=== PATIENT | male | born 1950 | race African-American/Black ===

== ENCOUNTER 2018-09-11 15:36 | Emergency (ER) | payer OTHER ==
[~2018-09-11] VITALS: Ht 182.9 cm; Wt 113.4 kg
[2018-09-11 16:31] LABS: Basophils # (auto) 0.1 uL; Eosinophils # (auto) 0.2 uL; Eosinophils % (auto) 4.2 % (0.0-7.0); Hematocrit 35.3 % (41.0-53.0); Monocytes # (auto) 0.6 uL; Red Blood Cells 4.62 10^6/uL (4.5-5.90); White Blood Cell 5.2 10^3/uL (4.4-10.8)
[2018-09-11 16:34] LABS: Basophils % (auto) 1.5 % (0.0-2.0); Hemoglobin 11.6 g/dL (13.5-17.5); Lymphocytes % (auto) 19.1 % (10.0-50.0); Mean Corpuscular Hemoglobin 25.1 pg (28.0-32.0); Mean Corpuscular Hgb Conc. 32.9 g/dL (32.0-36.0); Mean Corpuscular Volume 76.4 fL (80.0-100.0); Monocytes % (auto) 11.8 % (0.0-12.0); Neutrophils # (auto) 3.3 uL; Neutrophils % (auto) 63.4 % (37.0-80.0); Platelet Count (auto) 236 10^3/uL (140-450)
[2018-09-11 16:40] LABS: Red Cell Distribution Width 20.8 % (11.8-14.3)
[2018-09-11 17:03] LABS: Albumin 2.9 g/dL (3.4-5.0); BUN/Creatinine Ratio 4.5; Calcium 7.3 mg/dL (8.5-10.1); Potassium 4.2 mmol/L (3.5-5.1)
[2018-09-11 17:15] LABS: Bilirubin, Total 0.8 mg/dL (0.2-1.0); Total Protein 8.2 g/dL (6.4-8.2)
[2018-09-12 11:57] VITALS: BP 134/89
== END 2018-09-12 12:07 | disposition short-term general hospital (02) ==
LOC: EDBD 15:36 → ER 15:36
DX: N18.6 End stage renal disease (principal); Z99.2 Dependence on renal dialysis
CPT/HCPCS: 36415; 80053; 85025; 93005; 93970

== ENCOUNTER 2019-07-08 15:34 | Inpatient (IN) | payer OTHER ==
[~2019-07-08] VITALS: Ht 180.3 cm; Wt 102.7 kg
[2019-07-08 18:54] LABS: Basophils # (auto) 0.1 uL; Hemoglobin 10.8 g/dL (13.5-17.5); Mean Corpuscular Hemoglobin 25.7 pg (28.0-32.0); Monocytes # (auto) 0.6 uL; Neutrophils # (auto) 4.8 uL; White Blood Cell 6.8 10^3/uL (4.4-10.8)
[2019-07-08 18:56] LABS: Basophils % (auto) 1.2 % (0.0-2.0); Eosinophils # (auto) 0.3 uL; Eosinophils % (auto) 3.7 % (0.0-7.0); Hematocrit 32.7 % (41.0-53.0); Lymphocytes # (auto) 1.1 uL; Lymphocytes % (auto) 15.7 % (10.0-50.0); Monocytes % (auto) 9.1 % (0.0-12.0); Neutrophils % (auto) 70.3 % (37.0-80.0); Platelet Count (auto) 221 10^3/uL (140-450); Red Blood Cells 4.19 10^6/uL (4.5-5.90); Red Cell Distribution Width 16.7 % (11.8-14.3)
[2019-07-08 19:12] LABS: Calcium 8.6 mg/dL (8.5-10.1); Potassium 5.5 mmol/L (3.5-5.1)
[2019-07-08 19:15] LABS: BUN/Creatinine Ratio 4.8; Bilirubin, Total 0.9 mg/dL (0.2-1.0); Total Protein 8.3 g/dL (6.4-8.2)
[2019-07-08 19:21] LABS: Urine Bacteria NONE SEEN /hpf (None Seen); Urine Blood 2+ /uL (Negative); Urine Specific Gravity 1.016 (1.001-1.035); Urine WBC 70 /hpf (0 - 3)
[2019-07-08] MEDS ORDERED: cefTRIAXone 1GM/50ML D5W 50 ML IV ONE (20:15)
[2019-07-08] MEDS ORDERED: FUROSEMIDE 40 MG/4 ML VIAL IV ONE (20:15)
[2019-07-08] MEDS ORDERED: IBUPROFEN 600 MG TAB PO ONE (21:00)
[2019-07-08] MEDS ORDERED: PHENAZOPYRIDINE HCL 100 MG TAB PO ONE (21:00)
[2019-07-09] VITALS (7 sets, daily range): BP systolic 129–149; BP diastolic 68–91
[2019-07-09] MEDS ORDERED: cloNIDine HCL 0.1 MG TAB PO PRN (00:45)
[2019-07-09] MEDS ORDERED: TEMAZEPAM 15 MG CAP PO PRN (00:45)
[2019-07-09] MEDS ORDERED: ACETAMINOPHEN 325 MG TAB PO PRN (00:45)
[2019-07-09] MEDS ORDERED: ONDANSETRON HCL 4 MG/2 ML VIAL IV PRN (00:45)
[2019-07-09] MEDS ORDERED: NITROGLYCERIN 0.4 MG SL TAB SL PRN (01:00)
[2019-07-09] MEDS ORDERED: MORPHINE SULF INJ 2 MG/ML SYRINGE 1ML IV PRN (01:00)
[2019-07-09] MEDS ORDERED: SODIUM ZIRCONIUM CYCL 10 GM PAK PO ONE (01:00)
[2019-07-09] MEDS ORDERED: ALBUTEROL SULF 2.5 MG/0.5ML(0.5%) NEB SOLN NEB PRN (03:00)
[2019-07-09] MEDS: FUROSEMIDE 40 MG/4 ML VIAL IV SCH ×2 (05:48→19:01)
[2019-07-09] MEDS: PANTOPRAZOLE 40 MG TAB PO SCH (05:48)
[2019-07-09] MEDS ORDERED: FUROSEMIDE 40 MG TAB PO SCH (06:00)
--- NOTE | 2019-07-09 08:20 | NUR ---
Opening Note Assumed care of patient. He is A & O x4,, no s/s of distress, sitting up at bedside eating breakfast independently. Patient is comfortable at this time. POC discussed with patient, he agrees. Bed is in lowest, locked position, call light within reach. Bed rails up x 2, oriented patient to room and hospital. Will continue to monitor Q1h and PRN.
--- NOTE | 2019-07-09 09:55 | NUR ---
Respiratory note: PT ASSESSED FOR PRN MED NEB TX, NO TX DESIRED NOR INDICATED AT THIS TIME. RN AND PT AWARE TO HAVE RT PAGED IF NEEDED. HR 90 RR 20 SPO2 100% ON RA BREATH SOUNDS ARE CLEAR/DIMINISHED T/O.
[2019-07-09] MEDS: amLODIPine BESYLATE 5 MG TAB PO SCH (10:00)
[2019-07-09] MEDS ORDERED: OPTISON 3ml Vial for INJ IV ONE (11:30)
--- NOTE | 2019-07-09 12:01 | NUR ---
ECHO/ OPTISON PT TOLERATED ELL, NO DISTRESS, OR REACTION NOTED, CONTINUE MONITORING PT
[2019-07-09] MEDS ORDERED: SODIUM CHL 0.9% 1000 ML BAG XX ONE (13:00)
[2019-07-09] MEDS: PHENAZOPYRIDINE HCL 100 MG TAB PO SCH ×2 (13:22→21:57)
[2019-07-09] MEDS ORDERED: LIDOCAINE 2%HCL (LOCAL ANESTH.) INJ 10ml MDV IJ ONE (15:00)
--- NOTE | 2019-07-09 17:23 | NUR ---
assessment re: gabriel consult lives alone and has nobody to help him Patient is a 68 year old male who is alert and oriented. Patients cognitive abilities are intact. Prior to admission patient lived home alone and functioned independently. Patient informed me he is able to care for his own ADLs. Per patient he will return home to his prior living arrangements post discharge and family will transport him home. Patient informed me he has a fww and a cane for home use. Patients PCP is Dr Gonzales. Patient has [facility] T TH Sat at 4am. Patient drives himself to Dialysis. Patient informed me what he needs help with is cleaning his bathroom and kitchen. Patient informed me it is hard for him to get on the floor and clean behind the toilet. Patient informed me he can do all other cleaning and cooking and caring for himself. I have provided patient with [facility] cleaning service for the elderly. I informed patient he has a right to speak to a social media editor regarding all care. I informed patient he has a right to participate in any and all discharge planning. Patient does not have a POA and advanced directive. I have offered patient information on POA and advanced directives. I informed the patient the advantages and benefits of having an Advanced Directive. Patient verbalized understanding and agreed to discharge plan. Addendum: 07/09/19 at 1729 by Natalia HODGE Amended: Links added.
--- NOTE | 2019-07-09 18:55 | NUR ---
Dialysis nurse completed dialysis HR 89, BP 143/74, 3L removed, patient tolerated well. Can remove fistula dressing in 4-6 hours. Will endorse to shift stacker.
[2019-07-09] MEDS ORDERED: cefTRIAXone 1GM/50ML D5W 50 ML IV SCH (21:00)
[2019-07-09] MEDS: cefTRIAXone 1GM/50ML D5W 50 ML IV SCH (21:57)
--- NOTE | 2019-07-09 23:38 | NUR ---
PATIENT REQUESTING COUGH MEDICINE, PAGED DR CHRISTIANSEN FOR ORDERS. AWAITING CALL BACK. Addendum: 07/09/19 at 2344 by MARIALUISA QUINONEZ RN RN DR CHRISTIANSEN CALLED BACK RECEIVED ORDER FOR ROBITUSSIN DM 10ML Q 4HRS PRN FOR COUGH. TISHA.
[2019-07-09] MEDS: guaiFENesin-DM 100/10mg/5ml SYR PO PRN (23:54)
[2019-07-10] MEDS: PANTOPRAZOLE 40 MG TAB PO SCH (05:20)
[2019-07-10 05:21] VITALS: BP 157/86
[2019-07-10] MEDS: FUROSEMIDE 40 MG/4 ML VIAL IV SCH ×2 (05:21→19:13)
[2019-07-10 09:00] VITALS: BP 146/95
[2019-07-10 10:59] LABS: Basophils # (auto) 0.1 uL; Hematocrit 32.8 % (41.0-53.0); Lymphocytes # (auto) 0.9 uL; Monocytes # (auto) 0.8 uL; Nucleated Red Blood Cells % 0.1 %; Red Blood Cells 4.14 10^6/uL (4.5-5.90); White Blood Cell 6.3 10^3/uL (4.4-10.8)
[2019-07-10 11:01] LABS: Basophils % (auto) 1.7 % (0.0-2.0); Eosinophils # (auto) 0.2 uL; Eosinophils % (auto) 2.6 % (0.0-7.0); Hemoglobin 10.6 g/dL (13.5-17.5); Lymphocytes % (auto) 14.5 % (10.0-50.0); Mean Corpuscular Hemoglobin 25.7 pg (28.0-32.0); Mean Corpuscular Hgb Conc. 32.4 g/dL (32.0-36.0); Mean Corpuscular Volume 79.4 fL (80.0-100.0); Monocytes % (auto) 12.6 % (0.0-12.0); Neutrophils # (auto) 4.3 uL; Neutrophils % (auto) 68.6 % (37.0-80.0); Platelet Count (auto) 204 10^3/uL (140-450); Red Cell Distribution Width 17.9 % (11.8-14.3)
[2019-07-10 11:07] LABS: Calcium 8.3 mg/dL (8.5-10.1); Potassium 5.1 mmol/L (3.5-5.1)
[2019-07-10 11:10] LABS: BUN/Creatinine Ratio 4.1
[2019-07-10] MEDS: amLODIPine BESYLATE 5 MG TAB PO SCH (11:53)
[2019-07-10] MEDS: PHENAZOPYRIDINE HCL 100 MG TAB PO SCH ×2 (11:54→22:32)
[2019-07-10 13:00] VITALS: BP 150/87
[2019-07-10 17:00] VITALS: BP 122/79
--- NOTE | 2019-07-10 19:16 | NUR ---
PT ASSESSED FOR PRN KELSIE VALENCIA TX. SPO2 985 ON RA, HR 91. PT DENIES ANY RESPIRATORY DISTRESS. NO TX INDICATED. WILL CONTINUE TO MONITOR. Addendum: 07/10/19 at 1917 by MARGARET ERWIN RT 98% ON RA
[2019-07-10] MEDS: guaiFENesin-DM 100/10mg/5ml SYR PO PRN (19:37)
[2019-07-10 22:00] VITALS: BP 147/81
[2019-07-10] MEDS: cefTRIAXone 1GM/50ML D5W 50 ML IV SCH (22:32)
--- NOTE | 2019-07-11 04:22 | NUR ---
Opening Shift Note Assumed care of patient, patient asleep, verbally awake and alert. No S/S of distress/SOB or pain. Instructed on POC and to call for assist PRN, will continue to monitor for changes Q1hr and PRN.
[2019-07-11 05:00] VITALS: BP 157/85
[2019-07-11] MEDS: FUROSEMIDE 40 MG/4 ML VIAL IV SCH ×2 (05:45→17:26)
[2019-07-11] MEDS: PANTOPRAZOLE 40 MG TAB PO SCH (05:47)
[2019-07-11 06:06] LABS: BUN/Creatinine Ratio 4.2; Calcium 8.3 mg/dL (8.5-10.1); Potassium 4.9 mmol/L (3.5-5.1)
[2019-07-11] MEDS ORDERED: LIDOCAINE 1% HCL (LOCAL ANESTH.) INJ 20ML MDV ID ONE (06:15)
[2019-07-11] MEDS ORDERED: SODIUM CHL 0.9% 1000 ML BAG XX ONE (07:00)
[2019-07-11 09:00] VITALS: BP 161/82
[2019-07-11] MEDS: PHENAZOPYRIDINE HCL 100 MG TAB PO SCH ×2 (09:34→21:11)
[2019-07-11] MEDS: amLODIPine BESYLATE 5 MG TAB PO SCH (09:34)
--- NOTE | 2019-07-11 10:28 | NUR ---
ASSESSED PT FOR PRN MED NEB, PT IS SLEEPING WITH GOOD INSPIRATORY EFFORT AND IN NO RESPIRATORY DISTRESS. PT AWARE OF PRN MED NEB.
[2019-07-11 13:00] VITALS: BP 155/89
[2019-07-11 17:00] VITALS: BP 156/95
--- NOTE | 2019-07-11 17:19 | NUR ---
Discharge planning per Ss consult, patient has orders to dc to SNF for PT/OT. No PT notes, advised nurse Hyacinth to order STAT PT evaluation; nurse advised patient is ambulating to and from bathroom without assistance. Referral sent to [facility] [phone] for approval and requesting SNF placement.
--- NOTE | 2019-07-11 17:35 | NUR ---
PT WALKED WITH PHYSICAL THERAPY PT WALKED 10 FEET WITH MODERATE ASSITANCE AND PT STATES HE HAS FALLEN IN HIS HOMKE DUE TO BALANCE ISSUES, PT STATES HE DOESNT FEEL COMFORTABLE TAKING CARE OF HIMSELF IN HIS CURRENT CONDITION
--- NOTE | 2019-07-11 18:06 | NUR ---
Discharge planning per SS consult, patient has orders for SNF placement. Referral faxed to [facility]. Will follow up with recreation aide case management on 07.12.19. Nurse Hyacinth advised.
[2019-07-11 20:14] VITALS: BP 138/82
--- NOTE | 2019-07-11 20:14 | NUR ---
Respiratory note: PT RECIEVED ON RA. PT IS AWAKE AND ALERT AT THIS TIME. NO RESP DISTRESS NOTED. SPO2 96%, HR 98, RR 18. BS CLR/DIM T/O. NO PRN TX INDICATED AT THIS TIME. PT AWARE TO CALL FOR TX.
[2019-07-11] MEDS: guaiFENesin-DM 100/10mg/5ml SYR PO PRN (21:10)
[2019-07-11] MEDS: cefTRIAXone 1GM/50ML D5W 50 ML IV SCH (21:11)
[2019-07-11 22:00] VITALS: BP 138/82
[2019-07-12 05:00] VITALS: BP 154/84
[2019-07-12] MEDS: FUROSEMIDE 40 MG/4 ML VIAL IV SCH (06:12)
[2019-07-12] MEDS: PANTOPRAZOLE 40 MG TAB PO SCH (06:12)
[2019-07-12] MEDS: guaiFENesin-DM 100/10mg/5ml SYR PO PRN (06:16)
[2019-07-12 06:41] LABS: Calcium 8.6 mg/dL (8.5-10.1); Potassium 4.3 mmol/L (3.5-5.1)
[2019-07-12 06:43] LABS: BUN/Creatinine Ratio 3.6
[2019-07-12 09:00] VITALS: BP 151/99
[2019-07-12] MEDS: PHENAZOPYRIDINE HCL 100 MG TAB PO SCH (10:10)
[2019-07-12] MEDS: amLODIPine BESYLATE 5 MG TAB PO SCH (10:10)
--- NOTE | 2019-07-12 10:28 | NUR ---
Placed a follow up call to [facility], spoke with Shawna-station attendant and was advised that per their notes [facility] had no beds available and [facility] admission dept is closed. She advised she will look into it and call me back with an update.
[2019-07-12 13:00] VITALS: BP 142/95
--- NOTE | 2019-07-12 15:54 | NUR ---
NUTRITION ASSESSMENT NOTES Please refer to link notes of nutrition screen form filed under the intervention section of the plan of care for further details. Est. Needs: 2050 kcal to 2550 kcal (20-25 kcal/kgBW), 103 gms to 144 gms pro (1.0-1.4 gms/kgBW d/t ESRD on HD). Will continue to monitor pertinent labs and reassess nutrient need prn Thank you. Addendum: 07/12/19 at [address] Amended: Links added.
--- NOTE | 2019-07-12 16:53 | NUR ---
RE: Transfer to [facility] report given to RN at [facility]. Admitting doctor is Dr. Vela.
[2019-07-12 17:00] VITALS: BP 138/85
--- NOTE | 2019-07-12 17:29 | NUR ---
DISCHARGE NOTE Discharge instructions given as ordered. Encourage to follow up with PMD as instructed. All questions and concerns addressed. Patient verbalized understanding. Medication reconciliation form completed and copy given to patient. IV removed with catheter intact, pressure dressing applied. Patient taken to vehicle via wheelchair with all personal belongings, accompanied by staff and family member. No distress noted at time of departure.
== END 2019-07-12 17:25 | DRG 291 ==
LOC: EDBD 15:34 → ER 15:43 → EAST 15:44 → ER 07-09 01:51
PROVIDERS: ADMIT Nurse Practitioner; ATTEND Internal Medicine Geriatric Medicine
PROC: 5A1D70Z Performance of Urinary Filtration, Intermittent, Less than 6 Hours Per Day (ICD-10-PCS; principal; 2019-07-09)
PROC: 5A1D70Z Performance of Urinary Filtration, Intermittent, Less than 6 Hours Per Day (ICD-10-PCS; 2019-07-11)
DX: I13.2 Hypertensive heart and chronic kidney disease with heart failure and with stage 5 chronic kidney disease, or end stage renal disease (principal); I50.31 Acute diastolic (congestive) heart failure; N18.6 End stage renal disease; N25.81 Secondary hyperparathyroidism of renal origin; N39.0 Urinary tract infection, site not specified; E87.5 Hyperkalemia; D63.1 Anemia in chronic kidney disease; F12.90 Cannabis use, unspecified, uncomplicated; F17.210 Nicotine dependence, cigarettes, uncomplicated; Z99.2 Dependence on renal dialysis
CPT/HCPCS: 36415; 71045; 80048; 80053; 81001; 83880; 85025; 87086; 90935; 93306; 96365; 96375; 97163; G0378; J0696; J1642; J2001; Q9956

== ENCOUNTER 2019-11-04 08:08 | Emergency (ER) | payer OTHER ==
[~2019-11-04] VITALS: Ht 175.3 cm; Wt 83.9 kg
[2019-11-04 08:43] LABS: Basophils # (auto) 0.1 10 ^3/uL (0-0.2); Basophils % (auto) 1.2 % (0.0-2.0); Eosinophils # (auto) 0.2 10 ^3/uL (0-0.8); Eosinophils % (auto) 2.5 % (0.0-7.0); Hematocrit 36.2 % (41.0-53.0); Hemoglobin 11.5 g/dL (13.5-17.5); Lymphocytes # (auto) 0.8 10 ^3/uL (0.4-5.4); Lymphocytes % (auto) 9.9 % (10.0-50.0); Mean Corpuscular Hemoglobin 24.6 pg (28.0-32.0); Mean Corpuscular Hgb Conc. 31.9 g/dL (32.0-36.0); Mean Corpuscular Volume 77.2 fL (80.0-100.0); Monocytes # (auto) 0.8 10 ^3/uL (0-1.3); Monocytes % (auto) 9.8 % (0.0-12.0); Neutrophils # (auto) 6.3 10 ^3/uL (1.6-8.6); Neutrophils % (auto) 76.6 % (37.0-80.0); Nucleated Red Blood Cells % 0.1 %; Platelet Count (auto) 201 10^3/uL (140-450); Red Blood Cells 4.69 10^6/uL (4.5-5.90); White Blood Cell 8.3 10^3/uL (4.4-10.8)
[2019-11-04] MEDS ORDERED: CLON0.1T PO (08:53)
[2019-11-04] MEDS ORDERED: CINA30TA2 PO (08:53)
[2019-11-04] MEDS ORDERED: CALC667C5 PO (08:53)
[2019-11-04] MEDS ORDERED: SEVE800T8 PO (08:53)
[2019-11-04] MEDS ORDERED: AML5T PO (08:53)
[2019-11-04 08:56] LABS: Albumin 2.7 g/dL (3.4-5.0); Calcium 6.9 mg/dL (8.5-10.1); Potassium 4.6 mmol/L (3.5-5.1)
[2019-11-04 09:00] LABS: INR 1.19 (0.9-1.15); Partial Thromboplastin Time 32.6 sec (23.64-32.05)
[2019-11-04 09:02] LABS: BUN/Creatinine Ratio 5.2; Total Protein 7.2 g/dL (6.4-8.2)
[2019-11-04 11:39] VITALS: BP 169/83
== END 2019-11-04 12:07 | disposition short-term general hospital (02) ==
LOC: EDBD 08:08 → ER 08:08
DX: N18.6 End stage renal disease (principal); I50.9 Heart failure, unspecified; R19.7 Diarrhea, unspecified
CPT/HCPCS: 36415; 71045; 80053; 83880; 84484; 85025; 85610; 85730; 93005

== ENCOUNTER 2019-12-25 14:53 | Inpatient (IN) | payer OTHER ==
[~2019-12-25] VITALS: Ht 180.3 cm; Wt 108.3 kg
[~2019-12-25 14:53] MED LIST: AML5T PO; CALC667C5 PO; CINA30TA2 PO; CLON0.1T PO; SEVE800T8 PO
[2019-12-25] MEDS ORDERED: cefTRIAXone 1GM/50ML D5W 50 ML IV ONE (16:00)
[2019-12-25 16:37] LABS: Basophils # (auto) 0.1 10 ^3/uL (0-0.2); Eosinophils # (auto) 0.2 10 ^3/uL (0-0.8); Monocytes # (auto) 0.9 10 ^3/uL (0-1.3); Neutrophils # (auto) 5.6 10 ^3/uL (1.6-8.6); Nucleated Red Blood Cells % 0.1 %; Red Blood Cells 4.19 10^6/uL (4.5-5.90); White Blood Cell 7.7 10^3/uL (4.4-10.8)
[2019-12-25 16:39] LABS: Basophils % (auto) 1.2 % (0.0-2.0); Hematocrit 32.6 % (41.0-53.0); Hemoglobin 10.6 g/dL (13.5-17.5); Lymphocytes % (auto) 12.5 % (10.0-50.0); Mean Corpuscular Hemoglobin 25.2 pg (28.0-32.0); Mean Corpuscular Hgb Conc. 32.4 g/dL (32.0-36.0); Mean Corpuscular Volume 77.8 fL (80.0-100.0); Monocytes % (auto) 11.2 % (0.0-12.0); Neutrophils % (auto) 73.1 % (37.0-80.0); Platelet Count (auto) 217 10^3/uL (140-450); Red Cell Distribution Width 19.6 % (11.8-14.3)
[2019-12-25 16:52] LABS: Albumin 3.2 g/dL (3.4-5.0); Calcium 8.3 mg/dL (8.5-10.1); Magnesium 2.5 mg/dL (1.6-2.6)
[2019-12-25 17:00] LABS: BUN/Creatinine Ratio 6.9; Bilirubin, Total 0.8 mg/dL (0.2-1.0); CRP High Sensitivity 3.85 mg/dL (< 0.3); Total Protein 8.8 g/dL (6.4-8.2)
[2019-12-25 17:28] LABS: Potassium 7.4 mmol/L (3.5-5.1)
[2019-12-25] MEDS ORDERED: SODIUM BICARBONATE 8.4 % INJ 50ML VIAL IV ONE (17:30)
[2019-12-25] MEDS ORDERED: CALCIUM GLUC 4.65meq/50ml D5AE 50 ML IV ONE (17:30)
[2019-12-25] MEDS ORDERED: InsuLIN REG 1unit/0.01ml Soln (100units/ml) IV ONE (17:45)
[2019-12-25] MEDS ORDERED: SODIUM ZIRCONIUM CYCL 10 GM PAK PO ONE (17:45)
[2019-12-25] MEDS ORDERED: NITROGLYCERIN 0.4 MG SL TAB SL PRN ×2 (17:45→22:45)
[2019-12-25] MEDS ORDERED: CALCIUM CHL 100MG/ML 1,000 MG in D5W 5% 100 ML IV ONE (17:45)
[2019-12-25] MEDS ORDERED: DEXTROSE (50%) 50ML SYRG IV ONE (17:45)
[2019-12-25] MEDS ORDERED: FUROSEMIDE 40 MG/4 ML VIAL IV ONE (17:45)
[2019-12-25] MEDS ORDERED: ALBUTEROL SULF 2.5 MG/0.5ML(0.5%) NEB SOLN NEB ONE (17:45)
[2019-12-25] MEDS ORDERED: SODIUM BICARBONATE 8.4% INJ 50ML SYRINGE IV ONE (17:45)
[2019-12-25] MEDS ORDERED: MORPHINE SULF INJ 2 MG/ML SYRINGE 1ML IV PRN ×3 (17:45→22:45)
[2019-12-25] MEDS ORDERED: SODIUM CHL 0.9% 1000 ML BAG XX ONE (18:30)
[2019-12-25] MEDS: SODIUM ZIRCONIUM CYCL 10 GM PAK PO SCH (22:00)
[2019-12-25] MEDS ORDERED: LORazepam 0.5 MG TAB PO PRN (22:45)
[2019-12-25] MEDS ORDERED: ONDANSETRON HCL 4 MG/2 ML VIAL IV PRN (22:45)
[2019-12-25] MEDS ORDERED: ALUM & MAG HYDROX-SIMETH LIQ(MAALOX) 30 ML PO PRN (22:45)
[2019-12-25] MEDS ORDERED: ACETAMINOPHEN 500 MG TAB PO PRN (22:45)
[2019-12-25] MEDS ORDERED: DOCUSATE SOD 100 MG CAP PO PRN (22:45)
[2019-12-25] MEDS ORDERED: cloNIDine HCL 0.1 MG TAB PO PRN (22:45)
[2019-12-25] MEDS ORDERED: HYDROcodone-ACET 5/325MG TAB PO PRN (22:45)
[2019-12-26 00:20] VITALS: BP 127/63
--- NOTE | 2019-12-26 00:20 | NUR ---
Telemetry admit from ER [facility] admitted to Telemetry unit after SBAR received. Patient oriented to SHELBY CORTEZ, primary RN, unit, room, bed, and unit policies regarding patient care and visiting hours. Patient now on continuous telemetry monitoring, tele box # 9 and telemetry reading on arrival to unit is sinus rhythm. Patient is alert and oriented x4. Patient assisted from wheelchair to bed, instructed and encouraged patient to call this RN for assistance, patient verbalized understanding. Patient noted to have fistula with pressure dressing to right forearm, thrill and bruit are present. Patient denies pain or shortness of breath at this time. No sign/symptoms of distress noted or verbalized at this time. Instructed on plan of care and encouraged patient to call for assistance as needed, patient verbalized understanding. Bed is locked in lowest position, side rails x 2 are up, call light is within reach, and bed alarm is on.
--- NOTE | 2019-12-26 01:00 | NUR ---
Incentive Spirometer Provided patient with an incentive spirometer. Educated patient on the purpose of the incentive spirometer, how to use it, and how often to use it. Patient verbalized understanding and returned demonstration. Patient able to raise marker to 1,000ml with no complications noted.
--- NOTE | 2019-12-26 01:00 | NUR ---
Unable to Complete Accurate Home Medication Reconciliation Unable to complete accurate home medication reconciliation at this time due to patient not remembering what blood pressure medications he takes at home.
--- NOTE | 2019-12-26 01:05 | NUR ---
Next of Kin Patient reports the majority of his family lives in [place] and does is not on "speaking terms" with the person he usually lists as his emergency contact. Patient states he will let me know when he decides who he wants to list as his next of kin.
--- NOTE | 2019-12-26 01:20 | NUR ---
MRSA Swab and Urine Specimen Collected MRSA swab and urine specimen collected and sent to lab via bullet.
[2019-12-26 01:32] LABS: Urine Bacteria NONE SEEN /hpf (None Seen); Urine Blood 1+ /uL (Negative); Urine WBC None Seen /hpf (0 - 3)
[2019-12-26] MEDS ORDERED: PNEUMOCOCCAL VACC POLYS 25 MCG/0.5 ML VIAL IM ONE (01:45)
[2019-12-26] MEDS ORDERED: OMEGCAP2 PO (01:45)
[2019-12-26] MEDS ORDERED: [UNRECOGNIZED DRUG - CODE] PO (01:45)
[2019-12-26] MEDS ORDERED: CALC667C PO (01:45)
[2019-12-26] MEDS ORDERED: CHOL20007 PO (01:45)
[2019-12-26 05:30] VITALS: BP 121/64
[2019-12-26] MEDS ORDERED: ALBUTEROL SULF HFA 90MCG INH 200DOSE IN SCH ×3 (06:00→14:00)
[2019-12-26] MEDS ORDERED: CALCIUM ACETATE 667 MG CAP PO SCH (06:00)
[2019-12-26] MEDS: SODIUM ZIRCONIUM CYCL 10 GM PAK PO SCH ×3 (06:00→22:53)
[2019-12-26] MEDS: FUROSEMIDE 40 MG/4 ML VIAL IV SCH ×2 (06:15→18:11)
[2019-12-26 06:21] LABS: Basophils # (auto) 0.1 10 ^3/uL (0-0.2); Basophils % (auto) 0.8 % (0.0-2.0); Eosinophils # (auto) 0.2 10 ^3/uL (0-0.8); Eosinophils % (auto) 2.7 % (0.0-7.0); Hematocrit 28.9 % (41.0-53.0); Hemoglobin 9.7 g/dL (13.5-17.5); Lymphocytes # (auto) 0.9 10 ^3/uL (0.4-5.4); Lymphocytes % (auto) 14.1 % (10.0-50.0); Mean Corpuscular Hemoglobin 25.4 pg (28.0-32.0); Mean Corpuscular Hgb Conc. 33.6 g/dL (32.0-36.0); Mean Corpuscular Volume 75.5 fL (80.0-100.0); Monocytes # (auto) 0.9 10 ^3/uL (0-1.3); Monocytes % (auto) 13.8 % (0.0-12.0); Neutrophils # (auto) 4.3 10 ^3/uL (1.6-8.6); Neutrophils % (auto) 68.6 % (37.0-80.0); Nucleated Red Blood Cells % 0.1 %; Platelet Count (auto) 176 10^3/uL (140-450); Red Blood Cells 3.83 10^6/uL (4.5-5.90); Red Cell Distribution Width 19.6 % (11.8-14.3); White Blood Cell 6.2 10^3/uL (4.4-10.8)
[2019-12-26 06:29] LABS: Potassium 4.7 mmol/L (3.5-5.1)
[2019-12-26 06:30] LABS: INR 1.3 (0.9-1.15); Partial Thromboplastin Time 35.7 sec (23.64-32.05)
[2019-12-26 06:43] LABS: Albumin 2.7 g/dL (3.4-5.0); BUN/Creatinine Ratio 6.3; Bilirubin, Total 0.7 mg/dL (0.2-1.0); Calcium 7.8 mg/dL (8.5-10.1); Magnesium 2.3 mg/dL (1.6-2.6); Phosphorus 7.3 mg/dL (2.5-4.90); Total Protein 7.5 g/dL (6.4-8.2)
--- NOTE | 2019-12-26 07:40 | NUR ---
Closing Shift Note Endorsed patient care to day shift RN.
--- NOTE | 2019-12-26 07:50 | NUR ---
Respiratory note: PT AWAKE, AND ALERT. NO RESPIRATORY DISTRESS NOTED. SPO2 97% ON RA, HR 79, RR 16, BS COARSE/I&E WHEEZES BILATERALLY. BASED ON RESPIRATORY ASSESSMENT, ALBUTEROL MDI ORDER WILL BE RECOMMENDED TO DR. POPE MADE AWARE. WILL CONTINUE TO MONITOR PT.
[2019-12-26] MEDS ORDERED: SEVELAMER 800 MG TAB PO SCH (08:00)
--- NOTE | 2019-12-26 08:00 | NUR ---
Opening Shift Note Assumed care of patient, awake, alert, and oriented. No S/S of distress/SOB or pain. Bed in lowest/locked position, bed rails up x2, call light within reach. Instructed on POC and to call for assist PRN. Will continue to monitor for changes Q1hr and PRN.
[2019-12-26] MEDS: CALCIUM ACETATE 667 MG CAP PO SCH ×3 (09:58→18:10)
[2019-12-26] MEDS: ZINC SULFATE 220mg CAP or TAB PO SCH (09:59)
[2019-12-26] MEDS: amLODIPine BESYLATE 5 MG TAB PO SCH (09:59)
[2019-12-26] MEDS: ASCORBIC ACID 1,000 MG TAB PO SCH (10:00)
[2019-12-26] MEDS: DOXYCYCLINE 100MG/250ML 250 ML IV SCH ×2 (10:00→22:54)
[2019-12-26] MEDS: CHOLECALCIFEROL (VITD3) 1,000IU=25mCg TAB PO SCH (10:00)
[2019-12-26] MEDS: ENOXAPARIN SOD 30 MG/0.3 ML SYRINGE SC SCH (10:00)
[2019-12-26] MEDS: ALBUTEROL SULF HFA 90MCG INH 200DOSE IN SCH ×2 (14:00→22:42)
[2019-12-26] MEDS: ERYTHROMY OPTH OINT 5mg/gm 1gm OP SCH ×3 (15:30→22:54)
--- NOTE | 2019-12-26 16:00 | NUR ---
REPORT REPORT GIVEN TO TOSHIA GARCIAS. PATIENT TRANSFERRING TO ROOM 223
--- NOTE | 2019-12-26 16:24 | NUR ---
Assessment Regarding Social Service consult for transportation information to doctor appointments, Advance directive and caregiver information. Attempted to speak to patient but patient refused to speak to me regarding social service consult. Will provide information to patient nurse regarding service for transportation, advance directive and caregiver services. Addendum: 12/26/19 at 1630 by NOELLE HODGE Amended: Links added.
--- NOTE | 2019-12-26 16:26 | NUR ---
TRANSFER PATIENT TRANSFERRED TO ROOM 223 FOR TOSHIA GARCIAS
--- NOTE | 2019-12-26 16:34 | NUR ---
Received a patient from [facility]. Patient awake, alert, oriented to new room and polices. No respiratory distress. Skin is warm and dry to touch. No c/o pain at this time. Placed a call light within reach. Will continue to monitor.
[2019-12-26 17:00] VITALS: BP 139/77
[2019-12-26 20:00] VITALS: BP 139/77
--- NOTE | 2019-12-26 20:00 | NUR ---
PT AWAKE ALERT WATCHING TELEVISION WITH NO C/O PAIN. ABLE TO DANGLE AT BEDSIDE AND FEED SELF.CALL LIGHT IN REACH WITH TWO SIDERAILS UP.
[2019-12-26 22:00] VITALS: BP 138/80
[2019-12-26] MEDS ORDERED: CINACALCET HYDROCHLORIDE 30 MG TAB PO SCH (22:00)
[2019-12-26 23:52] VITALS: BP 138/80
--- NOTE | 2019-12-27 02:25 | NUR ---
PT C/O RIGHT EYE PAIN;MEDICATED WITH MORPHINE 2 MG IVP SLOW FOR PAIN OF 8.CALL LIGHT IN REACH -WILL CONTINUE TO MONITOR.
[2019-12-27 04:45] VITALS: BP 135/77
[2019-12-27] MEDS: SODIUM ZIRCONIUM CYCL 10 GM PAK PO SCH ×2 (06:00→15:00)
--- NOTE | 2019-12-27 06:15 | NUR ---
PHONE CALL TO DR MCCOLLUM'S SERVICE TO CLARIFY IF MD STILL WANTS PT TO HAVE THE LOKELMA-BECAUSE PT'S K IS 4.7...PT IS ALSO SCHEDULED FOR DIALYSIS AND LASIX HAS BEEN ORDERED.THESE THREE ACTIONS WOULD SEVERELY DEPLETE PT'S POTASSIUM LEVELS-HENCE THE NEED FOR MD CLARIFICATION. WILL GIVE THE LASIX BUT HOLD THE LOKELMA UNTIL MD SPECIFIES AN ORDER.
[2019-12-27] MEDS: FUROSEMIDE 40 MG/4 ML VIAL IV SCH (06:28)
[2019-12-27] MEDS: ERYTHROMY OPTH OINT 5mg/gm 1gm OP SCH ×2 (06:29→16:06)
[2019-12-27] MEDS: ALBUTEROL SULF HFA 90MCG INH 200DOSE IN SCH ×2 (06:41→14:16)
--- NOTE | 2019-12-27 06:41 | NUR ---
Respiratory note: MDI TREATMENT GIVEN BY RT. PT TOLERATED WELL. HR 87, RR 16, SPO2 98% ON RA, BS CLEAR AND DIMINISHED.
[2019-12-27] MEDS ORDERED: SODIUM CHL 0.9% 1000 ML BAG XX ONE (07:00)
--- NOTE | 2019-12-27 07:30 | NUR ---
Opening Note Assumed patient care from LUISANA RN.
[2019-12-27] MEDS: CALCIUM ACETATE 667 MG CAP PO SCH ×2 (08:45→12:00)
--- NOTE | 2019-12-27 08:57 | NUR ---
Called Lucie Called Lucie regarding estimated time for dialysis.
--- NOTE | 2019-12-27 09:00 | NUR ---
Blood Draw Patient refusing blood draw at this time. Per instructional aide request, call when dialysis will begin for blood draw.
[2019-12-27 09:21] VITALS: BP 137/74
[2019-12-27] MEDS: amLODIPine BESYLATE 5 MG TAB PO SCH (10:00)
[2019-12-27] MEDS: ENOXAPARIN SOD 30 MG/0.3 ML SYRINGE SC SCH (10:00)
[2019-12-27] MEDS: DOXYCYCLINE 100MG/250ML 250 ML IV SCH (10:00)
[2019-12-27] MEDS: ZINC SULFATE 220mg CAP or TAB PO SCH (10:33)
[2019-12-27] MEDS: CHOLECALCIFEROL (VITD3) 1,000IU=25mCg TAB PO SCH (10:34)
[2019-12-27] MEDS: ASCORBIC ACID 1,000 MG TAB PO SCH (10:34)
--- NOTE | 2019-12-27 11:17 | NUR ---
Called Left message with Dr. La regarding patient's discharge and social service consult. New orders received for Social Service consult for FWW for home use. Will carry out and call on-call drug abuse social worker.
--- NOTE | 2019-12-27 11:35 | NUR ---
Paged SS Paged social work case manager. Will follow up.
--- NOTE | 2019-12-27 11:51 | NUR ---
SS Spoke with social worker school, Juliet, regarding patient social service consult for home safety evaluation and walker for home use. Per Juliet, fax facesheet, order, and H&P to [facility] at .
[2019-12-27] MEDS ORDERED: LIDOCAINE 1% HCL (LOCAL ANESTH.) INJ 20ML MDV ID ONE (12:00)
--- NOTE | 2019-12-27 12:00 | NUR ---
Fax Sent Fax to Julia day at [phone]. Facesheet, order, and h&p.
--- NOTE | 2019-12-27 12:08 | NUR ---
Called Lab Notified lab that patient will be starting dialysis in 15 minutes, per advanced developer, so they can obtain blood draw.
--- NOTE | 2019-12-27 12:08 | NUR ---
retail management trainee at bedside retail management trainee at bedside.
[2019-12-27] MEDS ORDERED: LIDOCAINE 1% INJ PF 5ML AMP ID ONE (12:30)
[2019-12-27 12:50] VITALS: BP 140/88
--- NOTE | 2019-12-27 13:07 | NUR ---
Resent Fax Per Juliet's request, resent fax to [facility] [phone] for patient's walker for home use.
[2019-12-27 13:25] LABS: Hemoglobin 10.8 g/dL (13.5-17.5); Nucleated Red Blood Cells % 0.1 %
[2019-12-27 13:27] LABS: Basophils # (auto) 0.2 10 ^3/uL (0-0.2); Basophils % (auto) 2.3 % (0.0-2.0); Eosinophils # (auto) 0.3 10 ^3/uL (0-0.8); Eosinophils % (auto) 3.9 % (0.0-7.0); Hematocrit 32.4 % (41.0-53.0); Lymphocytes % (auto) 13.5 % (10.0-50.0); Mean Corpuscular Hgb Conc. 33.2 g/dL (32.0-36.0); Mean Corpuscular Volume 75.4 fL (80.0-100.0); Monocytes # (auto) 0.9 10 ^3/uL (0-1.3); Neutrophils % (auto) 68.3 % (37.0-80.0); Platelet Count (auto) 216 10^3/uL (140-450); Red Cell Distribution Width 19.4 % (11.8-14.3); White Blood Cell 7.2 10^3/uL (4.4-10.8)
[2019-12-27 13:42] LABS: Calcium 8.1 mg/dL (8.5-10.1); Magnesium 2.1 mg/dL (1.6-2.6); Potassium 5.2 mmol/L (3.5-5.1)
[2019-12-27 13:43] LABS: BUN/Creatinine Ratio 6.5
--- NOTE | 2019-12-27 14:10 | NUR ---
Fax sent Sent fax for home safety eval order and COVID resutls to [facility], .
--- NOTE | 2019-12-27 14:16 | NUR ---
Respiratory note: MDI GIVENBY RT, TOLERATED WELL. DIALYSIS IN PROGRESS. HR 97, RR 14, SPO2 97% ON RA, BS CLEAR AND DIMINISHED.
--- NOTE | 2019-12-27 14:55 | NUR ---
Resent Fax Resent fax to [facility] for HH order and COVID results at [phone].
--- NOTE | 2019-12-27 14:58 | NUR ---
Called SS Spoke with Juliet, informed that fax to [facility] has been resent for home safety evaluation and COVID results. Juliet to call back for estimated time of delivery of walker.
[2019-12-27 15:05] VITALS: BP 137/74
--- NOTE | 2019-12-27 15:10 | NUR ---
Paged Paged Dr La regarding K level/redraw and Lokelma, creatinine level, and ointment for right eye. Left message, will follow up.
--- NOTE | 2019-12-27 15:19 | NUR ---
Spoke with MD Spoke with Dr. La regarding potassium, per MD, redraw labs not required, hold lokelma due to dialysis. Per MD patient does not require continued antibiotic treatment for right eye at home.
--- NOTE | 2019-12-27 15:49 | NUR ---
Loan Processing Supervisor Per traffic manager, Jeanette, patient had 3.5L removed. Okay to removed bandage in 3-4 hours. BP at end of dialysis 121/65. New BP obtained, currently 123/64. Patient shows no signs of distress, respirations even and unlabored, patient currently sitting up in bed after returning from restroom. Safety precautions in place, will continue to monitor.
--- NOTE | 2019-12-27 16:00 | NUR ---
SS Called Spoke with Juliet regarding patient's walker, per Juliet, walker to be delivered between 5-9pm by [facility] contact number . [facility] for home safety evaluation
[2019-12-27 16:32] VITALS: BP 123/64
--- NOTE | 2019-12-27 17:00 | NUR ---
Walker Walker delivered to bedside. Patient is aware.
--- NOTE | 2019-12-27 17:05 | NUR ---
Charge Nurse Aware Patient requesting to be discharged after dinner trays are passed. Charge nurse is aware.
--- NOTE | 2019-12-27 18:44 | NUR ---
Called [employer] called for patient scrap picker in 20 minutes.
--- NOTE | 2019-12-27 19:20 | NUR ---
Discharge Discharge instructions given as ordered. Encourage to follow up with PMD as instructed. All questions and concerns addressed. Patient verbalized understanding. Medication reconciliation form completed and copy given to patient. IV removed with catheter intact, pressure dressing applied. Telemetry unit returned to ICU. Patient taken to vehicle via wheelchair with all personal belongings, accompanied by staff. No distress noted at time of departure.
[2019-12-27] MEDS ORDERED: EPOETIN ALFA 4,000 UNIT/ML VL SC ONE (21:00)
--- NOTE | 2019-12-30 08:48 | NUR ---
Weekend reconnaissance man-I received a page 12/27/19 from Nurse Aguilar letting me know that this patient needs a walker and home health safety eval. I asked nurse Aguilar to fax it to [facility]. [facility] spoke [facility] Karen, she said [facility] will follow patient-I provided phone number to Lauren. Per Karen, [facility] will deliver walker between 5-9pm-I let nurse Aguilar know.
== END 2019-12-27 19:20 | disposition home or self-care (01) | DRG 640 ==
LOC: ER 14:53 → EDBD 14:53 → TELE 14:54 → TELE-EAST 23:37 → TELE-CENTR 12-26 16:35
PROVIDERS: ADMIT Hospitalist; ATTEND Internal Medicine Geriatric Medicine
PROC: 5A1D70Z Performance of Urinary Filtration, Intermittent, Less than 6 Hours Per Day (ICD-10-PCS; 2019-12-25)
PROC: 5A1D70Z Performance of Urinary Filtration, Intermittent, Less than 6 Hours Per Day (ICD-10-PCS; principal; 2019-12-27)
DX: E87.5 Hyperkalemia (principal); N18.6 End stage renal disease; J96.01 Acute respiratory failure with hypoxia; I13.2 Hypertensive heart and chronic kidney disease with heart failure and with stage 5 chronic kidney disease, or end stage renal disease; J84.9 Interstitial pulmonary disease, unspecified; E44.0 Moderate protein-calorie malnutrition; E87.70 Fluid overload, unspecified; H57.11 Ocular pain, right eye; D64.9 Anemia, unspecified; I50.9 Heart failure, unspecified; D63.1 Anemia in chronic kidney disease; Z68.33 Body mass index [BMI] 33.0-33.9, adult; Z91.19 Patient's noncompliance with other medical treatment and regimen; Z99.2 Dependence on renal dialysis; Z91.15 Patient's noncompliance with renal dialysis; Z20.828 Contact with and (suspected) exposure to other viral communicable diseases
CPT/HCPCS: 36415; 71045; 80048; 80053; 81001; 82728; 83605; 83615; 83735; 83880; 84100; 84132; 84443; 84484; 85025; 85379; 85610; 85730; 86141; 86160; 87040; 87070; 87081; 87804; 87880; 90935; 93005; 94640; 94644; 99291; G0378; J0610; J0696; J1642; J2001; J3490; J7060

== ENCOUNTER 2020-02-24 17:29 | Emergency (ER) | payer OTHER ==
[~2020-02-24] VITALS: Ht 177.8 cm; Wt 93.0 kg
[~2020-02-24 17:29] MED LIST changes: +CALC667C PO; -CALC667C5 PO; +CHOL20007 PO; +OMEGCAP2 PO; +[UNRECOGNIZED DRUG - CODE] PO
[2020-02-24 22:13] LABS: Basophils # (auto) 0.1 10 ^3/uL (0-0.2); Eosinophils # (auto) 0.3 10 ^3/uL (0-0.8); Hemoglobin 13.4 g/dL (13.5-17.5); Monocytes # (auto) 0.8 10 ^3/uL (0-1.3)
[2020-02-24 22:14] LABS: Basophils % (auto) 0.8 % (0.0-2.0); Eosinophils % (auto) 3.2 % (0.0-7.0); Hematocrit 40.7 % (41.0-53.0); Lymphocytes # (auto) 1.2 10 ^3/uL (0.4-5.4); Lymphocytes % (auto) 13.1 % (10.0-50.0); Mean Corpuscular Hemoglobin 26.1 pg (28.0-32.0); Mean Corpuscular Volume 79.1 fL (80.0-100.0); Monocytes % (auto) 8.6 % (0.0-12.0); Neutrophils # (auto) 6.7 10 ^3/uL (1.6-8.6); Neutrophils % (auto) 74.3 % (37.0-80.0); Nucleated Red Blood Cells % 0.1 %; Platelet Count (auto) 312 10^3/uL (140-450); Red Blood Cells 5.14 10^6/uL (4.5-5.90); Red Cell Distribution Width 18.6 % (11.8-14.3)
[2020-02-24 22:25] LABS: INR 1.11 (0.9-1.15); Partial Thromboplastin Time 35.8 sec (23.64-32.05)
[2020-02-24 22:26] LABS: Albumin 3.2 g/dL (3.4-5.0); Potassium 4.1 mmol/L (3.5-5.1)
[2020-02-24 22:32] LABS: BUN/Creatinine Ratio 5.4; Bilirubin, Total 0.7 mg/dL (0.2-1.0); Total Protein 9.3 g/dL (6.4-8.2)
[2020-02-25 00:25] VITALS: BP 112/70
== END 2020-02-24 23:52 | disposition home or self-care (01) ==
LOC: EDBD 17:29 → ER 17:29 → EDUNIT# 17:29 → ER 23:52
DX: S09.93XA Unspecified injury of face, initial encounter (principal); M25.511 Pain in right shoulder; R53.83 Other fatigue; R07.89 Other chest pain; R42 Dizziness and giddiness; R53.1 Weakness; I12.0 Hypertensive chronic kidney disease with stage 5 chronic kidney disease or end stage renal disease; E78.5 Hyperlipidemia, unspecified; N18.6 End stage renal disease; Z79.899 Other long term (current) drug therapy; X58.XXXA Exposure to other specified factors, initial encounter; Y93.89 Activity, other specified; Y92.89 Other specified places as the place of occurrence of the external cause; Y99.8 Other external cause status
CPT/HCPCS: 36415; 70450; 70486; 71045; 80053; 83880; 84484; 85025; 85610; 85730; 93971

== ENCOUNTER 2020-03-02 16:40 | Emergency (ER) | payer OTHER ==
[~2020-03-02] VITALS: Ht 180.3 cm; Wt 95.3 kg
[2020-03-02] MEDS ORDERED: TETRACAINE HCL 0.5% OPTH(EYE) SOLN 4ML RIGHTEYE ONE (20:00)
[2020-03-02] MEDS ORDERED: FLUORESCEIN SOD 1 MG TEST STRIP RIGHTEYE ONE (20:00)
[2020-03-03 03:11] VITALS: BP 128/48
== END 2020-03-03 03:38 | disposition short-term general hospital (02) ==
LOC: EDBD 16:40 → ER 16:40
DX: H40.051 Ocular hypertension, right eye (principal); H54.7 Unspecified visual loss; I12.0 Hypertensive chronic kidney disease with stage 5 chronic kidney disease or end stage renal disease; N18.6 End stage renal disease; E78.5 Hyperlipidemia, unspecified; F17.200 Nicotine dependence, unspecified, uncomplicated; Z79.899 Other long term (current) drug therapy; Z99.2 Dependence on renal dialysis
CPT/HCPCS: 70486

== ENCOUNTER 2020-05-01 10:11 | Emergency (ER) | payer OTHER, MEDICAID ==
[~2020-05-01] VITALS: Ht 185.4 cm; Wt 90.7 kg
[2020-05-01 10:17] VITALS: BP 177/79
[2020-05-01] MEDS ORDERED: HYDROcodone-ACET 10/325MG TAB PO ONE (11:45)
== END 2020-05-01 12:30 | disposition home or self-care (01) ==
LOC: ER 10:11 → EDBD 10:11 → ER 12:30
DX: M54.12 Radiculopathy, cervical region (principal); M48.02 Spinal stenosis, cervical region; F17.210 Nicotine dependence, cigarettes, uncomplicated; I12.0 Hypertensive chronic kidney disease with stage 5 chronic kidney disease or end stage renal disease; N18.6 End stage renal disease; E78.5 Hyperlipidemia, unspecified; Z79.899 Other long term (current) drug therapy
CPT/HCPCS: 72050

== ENCOUNTER 2020-05-11 00:37 | Inpatient (IN) | payer OTHER, MEDICAID ==
[~2020-05-11] VITALS: Ht 182.9 cm; Wt 93.4 kg
[2020-05-11] MEDS ORDERED: MORPHINE SULFATE 4 MG/ML SYR/VIAL IV ONE (01:30)
[2020-05-11] MEDS ORDERED: ASPirin 81 mg TAB PO ONE ×2 (01:30→15:45)
[2020-05-11] MEDS ORDERED: ONDANSETRON HCL 4 MG/2 ML VIAL IV ONE (01:30)
[2020-05-11 01:52] LABS: Basophils # (auto) 0.1 10 ^3/uL (0-0.2); Eosinophils # (auto) 0.2 10 ^3/uL (0-0.8); Eosinophils % (auto) 1.3 % (0.0-7.0); Hemoglobin 10.3 g/dL (13.5-17.5)
[2020-05-11 01:54] LABS: Basophils % (auto) 0.6 % (0.0-2.0); Hematocrit 31.2 % (41.0-53.0); Lymphocytes # (auto) 1.4 10 ^3/uL (0.4-5.4); Lymphocytes % (auto) 9.9 % (10.0-50.0); Mean Corpuscular Hemoglobin 24.8 pg (28.0-32.0); Mean Corpuscular Hgb Conc. 32.9 g/dL (32.0-36.0); Mean Corpuscular Volume 75.2 fL (80.0-100.0); Monocytes # (auto) 1.2 10 ^3/uL (0-1.3); Monocytes % (auto) 8.3 % (0.0-12.0); Neutrophils # (auto) 11.4 10 ^3/uL (1.6-8.6); Neutrophils % (auto) 79.9 % (37.0-80.0); Platelet Count (auto) 298 10^3/uL (140-450); Red Blood Cells 4.15 10^6/uL (4.5-5.90); Red Cell Distribution Width 18.1 % (11.8-14.3); White Blood Cell 14.3 10^3/uL (4.4-10.8)
[2020-05-11 02:10] LABS: Calcium 8.9 mg/dL (8.5-10.1); INR 1.13 (0.9-1.15); Partial Thromboplastin Time 32.4 sec (23.0-31.2); Potassium 5.3 mmol/L (3.5-5.1)
[2020-05-11 02:18] LABS: BUN/Creatinine Ratio 5.2; Bilirubin, Total 0.8 mg/dL (0.2-1.0); Total Protein 8.1 g/dL (6.4-8.2)
[2020-05-11] MEDS ORDERED: SODIUM ZIRCONIUM CYCL 10 GM PAK PO ONE (05:30)
[2020-05-11] MEDS ORDERED: MORPHINE SULF INJ 2 MG/ML SYRINGE 1ML IV PRN (05:30)
[2020-05-11] MEDS ORDERED: NITROGLYCERIN 0.4 MG SL TAB SL PRN (05:30)
[2020-05-11] MEDS ORDERED: ACETAMINOPHEN 325 MG TAB PO PRN (05:30)
[2020-05-11] MEDS ORDERED: ONDANSETRON HCL 4 MG/2 ML VIAL IV PRN (05:30)
[2020-05-11] MEDS ORDERED: TEMAZEPAM 15 MG CAP PO PRN (05:30)
[2020-05-11] MEDS ORDERED: cloNIDine HCL 0.1 MG TAB PO PRN (05:30)
[2020-05-11] MEDS: SEVELAMER 800 MG TAB PO SCH ×3 (08:54→17:58)
[2020-05-11] MEDS: amLODIPine BESYLATE 5 MG TAB PO SCH (10:27)
[2020-05-11] MEDS: PANTOPRAZOLE 40 MG TAB PO SCH (10:27)
[2020-05-11] MEDS: CALCIUM ACETATE 667 MG CAP PO SCH ×3 (10:27→17:58)
[2020-05-11] MEDS ORDERED: IBUP600T27 PO (11:47)
[2020-05-11] MEDS ORDERED: NETA0.02 OP (11:47)
[2020-05-11] MEDS ORDERED: PRED1SUS4 OP (11:47)
[2020-05-11] MEDS ORDERED: DORZ2SOL18 OP (11:47)
[2020-05-11] MEDS ORDERED: LATA0.0019 OP (11:47)
[2020-05-11] MEDS ORDERED: BRIM0.2S17 OP (11:47)
[2020-05-11 13:00] VITALS: BP 100/71
--- NOTE | 2020-05-11 13:03 | NUR ---
Cardiology Consultation Dr. Baxter at bed side.
--- NOTE | 2020-05-11 15:03 | NUR ---
RE: Critical lab Dr. Baxter paged through exchange system for critical troponin level Bedt phone number with EXT. left with cnc laser operator. Will await call back.
--- NOTE | 2020-05-11 15:15 | NUR ---
restaurant maintenance technician at bed side
[2020-05-11] MEDS: FUROSEMIDE 40 MG/4 ML VIAL IV SCH (15:18)
--- NOTE | 2020-05-11 15:36 | NUR ---
Second call to Dr. Baxter New orders received via telephone, read back and verified. Will implement. Refer to order hx.
[2020-05-11] MEDS ORDERED: ATORVASTATIN 20 MG TAB PO ONE (15:45)
--- NOTE | 2020-05-11 16:00 | NUR ---
RE: LABS Voicemail left at MD La's system, in regards of labs, including potassium/bun/crea. Refer to lab hx. Will await call back.
--- NOTE | 2020-05-11 16:21 | NUR ---
Dr. La Received call back from Dr. Bessie DEXTER aware of all latest labs and patient status Will call Nephrology team to inquire of dialysis tx.
--- NOTE | 2020-05-11 16:24 | NUR ---
Call to Dr. Saucedo through exchange system Per thermograph operator, Dr. Eckert will be on case. Page sent out to . Will await call back.
--- NOTE | 2020-05-11 16:32 | NUR ---
Spoke to MD Eckert regarding dialysis tx Per MD, patient will be scheduled for tx tomorrow morning. No new orders received at this time. Will continue to monitor.
[2020-05-11 16:48] VITALS: BP 123/66
--- NOTE | 2020-05-11 19:35 | NUR ---
OPENING NOTE Received report from day shift RN. Patient is A&O X's 4 with no s/s of distress and reports some general body pain 11/13. Patient denies any SOB at this time. Patient receiving 2L O2 via N.C. Bed is in lowest/locked position with side rails up X's 2 and call light is within reach of patient. Patient has fistula to right arm-thrill and bruit present. Placed restriction band on patient. Bed alarm on for safety. Will continue care.
--- NOTE | 2020-05-11 20:31 | NUR ---
PATIENT COMPLAINING OF PAIN GENERAL PAIN 02/12. REQUESTING PAIN MEDICATION. LEFT MESSAGE FOR
--- NOTE | 2020-05-11 20:36 | NUR ---
RECEIVED CALL BACK FROM MD received new orders for pain. Also informed MD that per day shift RN, patient is supposed to get dialysis tomorrow and critical lab values. Will continue care.
[2020-05-11] MEDS: HYDROcodone-ACET 5/325MG TAB PO PRN (20:51)
--- NOTE | 2020-05-11 21:50 | NUR ---
pain reassessment Patient is resting in bed. no s/s of discomfort noted. Will continue care.
[2020-05-11 22:00] VITALS: BP 125/76
[2020-05-12 04:51] VITALS: BP 127/78
--- NOTE | 2020-05-12 06:43 | NUR ---
RECEIVED CALL FROM ENVIRONMENTAL SAMPLER Patient has orders for dialysis and she will be here around 0730. Will inform day shift RN.
[2020-05-12] MEDS: CALCIUM ACETATE 667 MG CAP PO SCH ×4 (08:00→21:33)
[2020-05-12] MEDS: SEVELAMER 800 MG TAB PO SCH ×3 (08:00→18:00)
--- NOTE | 2020-05-12 08:00 | NUR ---
AGING BOX HAND AT BED SIDE FOR TX
[2020-05-12] MEDS ORDERED: LIDOCAINE 1% HCL (LOCAL ANESTH.) INJ 20ML MDV SC ONE (08:15)
[2020-05-12] MEDS ORDERED: SODIUM CHL 0.9% 1000 ML BAG XX ONE (08:15)
--- NOTE | 2020-05-12 08:42 | NUR ---
critical labs received call with critical BUN/ CREA. Patient currently receiving dialysis tx. Will notify MD of labs.
[2020-05-12 09:00] VITALS: BP 139/80
[2020-05-12] MEDS: HYDROcodone-ACET 5/325MG TAB PO PRN (09:10)
[2020-05-12 09:25] LABS: Basophils # (auto) 0.1 10 ^3/uL (0-0.2); Eosinophils # (auto) 0.2 10 ^3/uL (0-0.8); Monocytes # (auto) 1.1 10 ^3/uL (0-1.3); Neutrophils # (auto) 13.1 10 ^3/uL (1.6-8.6); White Blood Cell 15.4 10^3/uL (4.4-10.8)
[2020-05-12 09:27] LABS: Basophils % (auto) 0.4 % (0.0-2.0); Hematocrit 31.5 % (41.0-53.0); Hemoglobin 10.1 g/dL (13.5-17.5); Lymphocytes % (auto) 6.6 % (10.0-50.0); Mean Corpuscular Hemoglobin 24.1 pg (28.0-32.0); Mean Corpuscular Hgb Conc. 32.2 g/dL (32.0-36.0); Mean Corpuscular Volume 74.8 fL (80.0-100.0); Monocytes % (auto) 6.9 % (0.0-12.0); Neutrophils % (auto) 85.1 % (37.0-80.0); Nucleated Red Blood Cells % 0.1 %; Platelet Count (auto) 270 10^3/uL (140-450); Red Blood Cells 4.21 10^6/uL (4.5-5.90)
[2020-05-12 09:34] LABS: Albumin 2.8 g/dL (3.4-5.0); Calcium 8.6 mg/dL (8.5-10.1)
[2020-05-12 09:37] LABS: BUN/Creatinine Ratio 5.6; Bilirubin, Total 0.8 mg/dL (0.2-1.0); Total Protein 7.7 g/dL (6.4-8.2)
--- NOTE | 2020-05-12 09:58 | NUR ---
DR FOSTER AT BED SIDE
[2020-05-12] MEDS: FUROSEMIDE 40 MG/4 ML VIAL IV SCH (10:00)
--- NOTE | 2020-05-12 10:00 | NUR ---
DIALYSIS TX FINISHED
--- NOTE | 2020-05-12 10:13 | NUR ---
DR CHRISTIANSEN AT BED SIDE
[2020-05-12] MEDS: PANTOPRAZOLE 40 MG TAB PO SCH (11:13)
[2020-05-12] MEDS: ASPirin 81 mg TAB PO SCH (11:13)
[2020-05-12] MEDS: amLODIPine BESYLATE 5 MG TAB PO SCH (11:13)
--- NOTE | 2020-05-12 12:20 | NUR ---
no med administration refused. Patient is irritable and yelling, "leave me alone and let me sleep!" Patient educated on need for these medications, patient states, "I'll be fine". Will try later.
[2020-05-12 13:00] VITALS: BP 157/83
--- NOTE | 2020-05-12 14:00 | NUR ---
Dialysis dressing post tx removed as indicated. No bleeding noted at side. Will continue monitoring.
[2020-05-12 16:59] VITALS: BP 164/92
--- NOTE | 2020-05-12 18:00 | NUR ---
Patient encouraged to wake up and eat dinner. Patient refuses at this time. Patient states, "I'm worn out! turn off light, I want to sleep". Will continue to monitor.
--- NOTE | 2020-05-12 18:03 | NUR ---
1800 phos /luis el refused by patient. Patient states, "everyone is bothering me all at once, I already told you I dont want them". continued education despite refusal
--- NOTE | 2020-05-12 20:00 | NUR ---
PT INFORMED RN "DONT BRING ME ANY PILLS CAUSE I DONT WANT EM. JUST GET OUT OF HERE AND LET ME SLEEP". WILL CONTINUE TO MONITOR.
[2020-05-12 22:00] VITALS: BP 141/69
[2020-05-12] MEDS ORDERED: ATORVASTATIN 20 MG TAB PO SCH (22:00)
[2020-05-13 05:00] VITALS: BP 145/81
[2020-05-13 06:24] LABS: Eosinophils # (auto) 0 10 ^3/uL (0-0.8); Nucleated Red Blood Cells % 0.1 %; Platelet Count (auto) 230 10^3/uL (140-450); Red Blood Cells 3.81 10^6/uL (4.5-5.90)
[2020-05-13 06:25] LABS: Basophils # (auto) 0.1 10 ^3/uL (0-0.2); Basophils % (auto) 0.4 % (0.0-2.0); Eosinophils % (auto) 0.3 % (0.0-7.0); Hematocrit 28.7 % (41.0-53.0); Hemoglobin 9.5 g/dL (13.5-17.5); Lymphocytes # (auto) 1.1 10 ^3/uL (0.4-5.4); Mean Corpuscular Hemoglobin 24.9 pg (28.0-32.0); Mean Corpuscular Hgb Conc. 33.1 g/dL (32.0-36.0); Mean Corpuscular Volume 75.3 fL (80.0-100.0); Monocytes # (auto) 1.1 10 ^3/uL (0-1.3); Monocytes % (auto) 8.2 % (0.0-12.0); Neutrophils # (auto) 11.2 10 ^3/uL (1.6-8.6); Neutrophils % (auto) 83.1 % (37.0-80.0); Red Cell Distribution Width 18.1 % (11.8-14.3); White Blood Cell 13.5 10^3/uL (4.4-10.8)
[2020-05-13 07:00] LABS: Calcium 8.8 mg/dL (8.5-10.1)
[2020-05-13 07:04] LABS: BUN/Creatinine Ratio 5.4
--- NOTE | 2020-05-13 07:05 | NUR ---
DIALYSIS NURSE CALLED TO INFORM PT SHE WILL BE HERE AT 7AM. PT STATES HE IS NOT TAKING DIALYSIS AT THAT HOUR. WILL LET NURSE KNOW UPON ARRIVAL. CONTINUING TO MONITOR PATIENT.
--- NOTE | 2020-05-13 07:35 | NUR ---
Opening Shift Note Assumed care of patient, awake and alert. Respirations are even and non labored on room air. No S/S of distress/SOB or pain. Bed is in the lowest/locked position with side rails up x 2 and call light within reach. Instructed on POC and to call for assist PRN, will continue to monitor for changes Q1hr and PRN.
[2020-05-13 07:50] LABS: Potassium 5.6 mmol/L (3.5-5.1)
[2020-05-13] MEDS: SEVELAMER 800 MG TAB PO SCH ×2 (08:00→12:28)
[2020-05-13] MEDS: HYDROcodone-ACET 5/325MG TAB PO PRN (08:26)
[2020-05-13] MEDS ORDERED: SODIUM CHL 0.9% 1000 ML BAG XX ONE (08:30)
[2020-05-13 09:00] VITALS: BP 130/80
--- NOTE | 2020-05-13 09:18 | NUR ---
Critical lab value Received call for critical labs. Paged Dr. La to notify.
--- NOTE | 2020-05-13 11:30 | NUR ---
DIALYSIS COMPLETE PATIENT WAS DIALYZED FROM [id number]. NURSE REPORTED REMOVAL OF 3L, B/P 147/80 HR 86. THE PATIENT DIDN'T RECEIVE ANY HEPARIN OR FLUIDS. DRESSING MAY BE REMOVED AT 1400.
[2020-05-13 11:54] VITALS: BP 130/80
[2020-05-13] MEDS: CALCIUM ACETATE 667 MG CAP PO SCH (12:28)
[2020-05-13] MEDS: ASPirin 81 mg TAB PO SCH (12:28)
[2020-05-13] MEDS: FUROSEMIDE 40 MG/4 ML VIAL IV SCH (12:28)
[2020-05-13] MEDS: amLODIPine BESYLATE 5 MG TAB PO SCH (12:28)
[2020-05-13] MEDS: PANTOPRAZOLE 40 MG TAB PO SCH (12:28)
[2020-05-13 13:00] VITALS: BP 147/80
--- NOTE | 2020-05-13 14:10 | NUR ---
HD dressing removal Patient refused to remove pressure dressing from dialysis. He stated that there are times that he has bleeding after removal.
[2020-05-13 17:00] VITALS: BP 141/81
--- NOTE | 2020-05-13 17:17 | NUR ---
Discharge instructions given as ordered. notified patient of [facility] to schedule follow up appointment with PCP. All questions and concerns addressed. Patient verbalized understanding. Medication delivered to patient from pharmacy. IV removed with catheter intact, pressure dressing applied. Telemetry unit returned to ICU. Patient taken to vehicle via wheelchair with all personal belongings, accompanied by staff. No distress noted at time of departure.
== END 2020-05-13 17:17 | disposition home or self-care (01) | DRG 291 ==
LOC: EDBD 00:37 → ER 00:46 → TELE 00:47 → TELE-WESTW 09:28
PROVIDERS: ADMIT Nurse Practitioner; ATTEND Internal Medicine Geriatric Medicine
PROC: 5A1D70Z Performance of Urinary Filtration, Intermittent, Less than 6 Hours Per Day (ICD-10-PCS; 2020-05-12)
PROC: 5A1D70Z Performance of Urinary Filtration, Intermittent, Less than 6 Hours Per Day (ICD-10-PCS; principal; 2020-05-13)
DX: I13.2 Hypertensive heart and chronic kidney disease with heart failure and with stage 5 chronic kidney disease, or end stage renal disease (principal); N18.6 End stage renal disease; I50.23 Acute on chronic systolic (congestive) heart failure; E44.0 Moderate protein-calorie malnutrition; G89.4 Chronic pain syndrome; E87.5 Hyperkalemia; D63.1 Anemia in chronic kidney disease; E78.5 Hyperlipidemia, unspecified; F17.210 Nicotine dependence, cigarettes, uncomplicated; M54.9 Dorsalgia, unspecified; Z99.2 Dependence on renal dialysis; Z91.15 Patient's noncompliance with renal dialysis; Z80.8 Family history of malignant neoplasm of other organs or systems; E11.22 Type 2 diabetes mellitus with diabetic chronic kidney disease; Z68.28 Body mass index [BMI] 28.0-28.9, adult
CPT/HCPCS: 36415; 36600; 71045; 80048; 80053; 82805; 83735; 83880; 84443; 84484; 85025; 85379; 85610; 85730; 90935; 93005; 93306; 99291; G0378; J2001; J2405

== ENCOUNTER 2021-01-17 16:23 | Emergency (ER) | payer OTHER, MEDICAID ==
[~2021-01-17] VITALS: Ht 180.3 cm; Wt 86.6 kg
[~2021-01-17 16:23] MED LIST changes: +BRIM0.2S17 EACHEYE; +DORZ2SOL18 EACHEYE; +IBUP600T27 PO; +LATA0.0019 EACHEYE; +NETA0.02 EACHEYE; +PRED1SUS4 OP
[2021-01-17] MEDS ORDERED: GABAPENTIN 300 MG CAP PO ONE (18:30)
[2021-01-17 19:11] VITALS: BP 109/57
== END 2021-01-17 21:43 | disposition home or self-care (01) ==
LOC: ER 16:23
DX: G62.9 Polyneuropathy, unspecified (principal); I12.0 Hypertensive chronic kidney disease with stage 5 chronic kidney disease or end stage renal disease; N18.6 End stage renal disease; E78.5 Hyperlipidemia, unspecified; Z99.2 Dependence on renal dialysis; Z79.899 Other long term (current) drug therapy; Z79.1 Long term (current) use of non-steroidal anti-inflammatories (NSAID)
CPT/HCPCS: 93970

== ENCOUNTER 2021-01-25 09:46 | Inpatient (IN) | payer OTHER, MEDICAID ==
[~2021-01-25] VITALS: Ht 180.3 cm; Wt 88.7 kg
[2021-01-25 10:58] LABS: Basophils # (auto) 0.1 10 ^3/uL (0-0.2); Hemoglobin 10.1 g/dL (13.5-17.5); Mean Corpuscular Hemoglobin 23.6 pg (28.0-32.0); Mean Corpuscular Volume 70.6 fL (80.0-100.0); White Blood Cell 8.3 10^3/uL (4.4-10.8)
[2021-01-25 11:00] LABS: Basophils % (auto) 1.3 % (0.0-2.0); Eosinophils # (auto) 0.2 10 ^3/uL (0-0.8); Eosinophils % (auto) 2.2 % (0.0-7.0); Hematocrit 30.2 % (41.0-53.0); Lymphocytes # (auto) 1.2 10 ^3/uL (0.4-5.4); Lymphocytes % (auto) 14.4 % (10.0-50.0); Mean Corpuscular Hgb Conc. 33.4 g/dL (32.0-36.0); Monocytes % (auto) 12.2 % (0.0-12.0); Neutrophils # (auto) 5.8 10 ^3/uL (1.6-8.6); Neutrophils % (auto) 69.9 % (37.0-80.0); Platelet Count (auto) 297 10^3/uL (140-450); Red Blood Cells 4.28 10^6/uL (4.5-5.90)
[2021-01-25 11:01] LABS: Red Cell Distribution Width 21.2 % (11.8-14.3)
[2021-01-25 11:12] LABS: Albumin 2.7 g/dL (3.4-5.0); Anion Gap 17 (5-15); Calcium 8.4 mg/dL (8.5-10.1); Carbon Dioxide 23 mmol/L (21-32); Chloride 93 mmol/L (98-107); Glucose 81 mg/dL (74-106); Potassium 3.5 mmol/L (3.5-5.1); Sodium 133 mmol/L (136-145)
[2021-01-25 11:18] LABS: Alanine Aminotransferase 19 U/L (16-61); Alkaline Phosphatase 146 U/L (45-117); Aspartate Aminotransferase 46 U/L (15-37); BUN/Creatinine Ratio 10.9; Bilirubin, Total 0.8 mg/dL (0.2-1.0); GFR African American 6 mL/min; GFR Non-African American 5 mL/min
[2021-01-25 11:29] LABS: Blood Urea Nitrogen 121 mg/dL (7-18)
[2021-01-25] MEDS ORDERED: ONDANSETRON HCL 4 MG/2 ML VIAL IV ONE (11:45)
[2021-01-25] MEDS ORDERED: MORPHINE SULFATE 4 MG/ML SYR/VIAL IV ONE (11:45)
[2021-01-25] MEDS ORDERED: HYDROmorphone HCL 2 MG/ML VL ONE (13:22)
[2021-01-25] MEDS ORDERED: HEPARIN DRIP/D5W 100UNITS/ML 250 ML IV SCH (13:30)
[2021-01-25] MEDS ORDERED: ONDANSETRON HCL 4 MG/2 ML VIAL IV PRN (13:30)
[2021-01-25] MEDS ORDERED: MORPHINE SULF INJ 2 MG/ML SYRINGE 1ML IV PRN ×2 (13:30→16:30)
[2021-01-25] MEDS ORDERED: BRIMONIDINE 0.2% OPTH Soln 5ml OP SCH (13:30)
[2021-01-25] MEDS ORDERED: HYDROmorphone HCL 2 MG/ML VL IV ONE (13:30)
[2021-01-25] MEDS ORDERED: NITROGLYCERIN 0.4 MG SL TAB SL PRN ×2 (13:30→16:30)
[2021-01-25] MEDS ORDERED: HEPARIN SODIUM (PORCINE) 5000 UNITS/ML 1ML VIAL IV ONE (13:30)
[2021-01-25] MEDS ORDERED: LIDOCAINE 2%HCL (LOCAL ANESTH.) INJ 20ML MDV ONE ×3 (14:13→15:33)
[2021-01-25] MEDS ORDERED: IODIXANOL 320MG/ML 100ML BTL IV ONE ×3 (14:13→15:34)
[2021-01-25] MEDS ORDERED: fentaNYL CITRATE 100 MCG/2 ML VL ONE (15:32)
[2021-01-25] MEDS ORDERED: MIDAZOLAM HCL 1MG/1ML-2 ML VIAL ONE (15:33)
[2021-01-25] MEDS: [UNRECOGNIZED DRUG - OTHER] OP SCH (18:00)
[2021-01-25] MEDS: HYDROmorphone HCL 2 MG/ML VL IV PRN ×2 (18:34→22:33)
[2021-01-25] MEDS: CALCIUM ACETATE 667 MG CAP PO SCH ×2 (18:52→21:17)
[2021-01-25] MEDS: SEVELAMER 800 MG TAB PO SCH (18:52)
[2021-01-25] MEDS: BRIMONIDINE 0.2% OPTH Soln 5ml OP SCH ×2 (19:36→20:08)
[2021-01-25] MEDS: LATANOPROST 0.005 % OPTH(EYE) SOL 2.5ML OP SCH (19:37)
[2021-01-25] MEDS: ATORVASTATIN 20 MG TAB PO SCH (21:17)
[2021-01-25] MEDS: SODIUM CHLOR 0.9% PF (SALINE LOCK) 10ML VIAL/SYR IV SCH (21:17)
[2021-01-25 21:46] LABS: INR 1.18 (0.9-1.15)
[2021-01-25 22:00] VITALS: BP 116/66
[2021-01-26] MEDS: HYDROmorphone HCL 2 MG/ML VL IV PRN ×3 (03:44→16:44)
[2021-01-26] MEDS ORDERED: GAB100C PO (04:20)
[2021-01-26] MEDS: SODIUM CHLOR 0.9% PF (SALINE LOCK) 10ML VIAL/SYR IV SCH ×3 (06:00→21:56)
[2021-01-26] MEDS: CALCIUM ACETATE 667 MG CAP PO SCH ×4 (06:00→21:56)
[2021-01-26] MEDS ORDERED: SODIUM CHL 0.9% 1000 ML BAG XX ONE (07:00)
[2021-01-26 07:48] LABS: Hemoglobin 9.8 g/dL (13.5-17.5)
[2021-01-26 07:51] LABS: Hematocrit 29.3 % (41.0-53.0)
[2021-01-26] MEDS: SEVELAMER 800 MG TAB PO SCH ×3 (08:00→18:00)
[2021-01-26] MEDS ORDERED: LIDOCAINE 2%HCL (LOCAL ANESTH.) INJ 20ML MDV ONE ×2 (08:04→09:05)
[2021-01-26] MEDS ORDERED: IODIXANOL 320MG/ML 100ML BTL IV ONE ×2 (08:04→08:55)
[2021-01-26] MEDS ORDERED: NITROGLYCERIN 5MG/ML 10ML VIAL IV ONE (08:19)
[2021-01-26] MEDS ORDERED: fentaNYL CITRATE 100 MCG/2 ML VL ONE ×2 (08:19→10:03)
[2021-01-26] MEDS ORDERED: VERAPAMIL 2.5MG/ML INJ 2ML VIAL IV ONE (08:19)
[2021-01-26] MEDS ORDERED: ANGIOMAX 250 MG VIAL IV ONE (08:19)
[2021-01-26] MEDS ORDERED: MIDAZOLAM HCL 1MG/1ML-2 ML VIAL ONE ×2 (08:20→10:03)
[2021-01-26] MEDS ORDERED: SODIUM CHL 0.9% 150 ML ONE (08:20)
[2021-01-26 09:00] VITALS: BP 122/68
[2021-01-26] MEDS: ASPirin 81 mg TAB PO SCH (10:00)
[2021-01-26] MEDS: BRIMONIDINE 0.2% OPTH Soln 5ml OP SCH ×2 (10:00→21:56)
[2021-01-26] MEDS: amLODIPine BESYLATE 5 MG TAB PO SCH (10:00)
[2021-01-26] MEDS ORDERED: diphenhdrAMINE HCL 50 MG/1 ML VL ONE (10:05)
[2021-01-26] MEDS ORDERED: HYDROmorphone HCL 2 MG/ML VL ONE (11:53)
[2021-01-26] MEDS ORDERED: CLOPIDOGREL 300 MG TAB ONE (13:03)
[2021-01-26 16:40] VITALS: BP 121/79
[2021-01-26] MEDS: [UNRECOGNIZED DRUG - OTHER] OP SCH (18:00)
[2021-01-26] MEDS: LATANOPROST 0.005 % OPTH(EYE) SOL 2.5ML OP SCH (18:00)
[2021-01-26] MEDS ORDERED: EPOETIN ALFA-EPBX 4,000 UNIT/ML VIAL SC ONE (21:00)
[2021-01-26] MEDS: ATORVASTATIN 20 MG TAB PO SCH (21:56)
[2021-01-26 22:00] VITALS: BP 114/67
[2021-01-27 05:00] VITALS: BP 111/59
[2021-01-27] MEDS: HYDROmorphone HCL 2 MG/ML VL IV PRN ×4 (06:16→16:42)
[2021-01-27] MEDS: CALCIUM ACETATE 667 MG CAP PO SCH ×4 (06:16→22:28)
[2021-01-27] MEDS: SODIUM CHLOR 0.9% PF (SALINE LOCK) 10ML VIAL/SYR IV SCH ×3 (06:16→22:27)
[2021-01-27 08:30] VITALS: BP 107/61
[2021-01-27] MEDS: SEVELAMER 800 MG TAB PO SCH ×3 (09:15→17:12)
[2021-01-27] MEDS: BRIMONIDINE 0.2% OPTH Soln 5ml OP SCH ×2 (09:16→22:28)
[2021-01-27] MEDS: MUPIROCIN 2% OINT 15gm or 22gm EACHNOSTRI SCH ×2 (09:16→22:27)
[2021-01-27] MEDS: ASPirin 81 mg TAB PO SCH (09:17)
[2021-01-27] MEDS: amLODIPine BESYLATE 5 MG TAB PO SCH (09:18)
[2021-01-27] MEDS ORDERED: RIVAROXABAN 10 MG TAB PO ONE (11:15)
[2021-01-27 11:16] LABS: Basophils # (auto) 0.1 10 ^3/uL (0-0.2); Basophils % (auto) 1.4 % (0.0-2.0); Eosinophils # (auto) 0.1 10 ^3/uL (0-0.8); Hematocrit 29.7 % (41.0-53.0); Hemoglobin 9.9 g/dL (13.5-17.5); Lymphocytes # (auto) 1.1 10 ^3/uL (0.4-5.4); Lymphocytes % (auto) 10.7 % (10.0-50.0); Mean Corpuscular Hemoglobin 23.2 pg (28.0-32.0); Mean Corpuscular Hgb Conc. 33.2 g/dL (32.0-36.0); Mean Corpuscular Volume 69.8 fL (80.0-100.0); Monocytes # (auto) 1.7 10 ^3/uL (0-1.3); Monocytes % (auto) 16.3 % (0.0-12.0); Neutrophils # (auto) 7.4 10 ^3/uL (1.6-8.6); Neutrophils % (auto) 70.6 % (37.0-80.0); Nucleated Red Blood Cells % 0.1 %; Platelet Count (auto) 281 10^3/uL (140-450); Red Blood Cells 4.25 10^6/uL (4.5-5.90); White Blood Cell 10.5 10^3/uL (4.4-10.8)
[2021-01-27 11:17] LABS: Red Cell Distribution Width 20.7 % (11.8-14.3)
[2021-01-27 11:27] LABS: BUN/Creatinine Ratio 8.8; Calcium 8.7 mg/dL (8.5-10.1); Magnesium 2.1 mg/dL (1.6-2.6)
[2021-01-27 12:30] VITALS: BP 114/66
[2021-01-27 17:00] VITALS: BP 99/58
[2021-01-27] MEDS: LATANOPROST 0.005 % OPTH(EYE) SOL 2.5ML OP SCH (17:11)
[2021-01-27] MEDS: [UNRECOGNIZED DRUG - OTHER] OP SCH (17:11)
[2021-01-27 22:00] VITALS: BP 106/55
[2021-01-27] MEDS: CARVEDILOL 3.125 MG TAB PO SCH ×3 (22:00→23:17)
[2021-01-27] MEDS: RIVAROXABAN 10 MG TAB PO SCH (22:28)
[2021-01-27] MEDS: ATORVASTATIN 20 MG TAB PO SCH (22:28)
[2021-01-28 02:06] VITALS: BP 107/72
[2021-01-28] MEDS ORDERED: dilTIAZem 25 MG/5 ML VIAL IV ONE (03:00)
[2021-01-28] MEDS ORDERED: DIGOXIN (250MCG/ML) 2 ML AMPULE IV ONE (03:00)
[2021-01-28 05:00] VITALS: BP 105/56
[2021-01-28] MEDS: SODIUM CHLOR 0.9% PF (SALINE LOCK) 10ML VIAL/SYR IV SCH ×3 (05:31→23:40)
[2021-01-28] MEDS: CALCIUM ACETATE 667 MG CAP PO SCH ×4 (05:32→23:44)
[2021-01-28 06:48] LABS: Basophils # (auto) 0.1 10 ^3/uL (0-0.2)
[2021-01-28 06:51] LABS: Eosinophils # (auto) 0.1 10 ^3/uL (0-0.8); Eosinophils % (auto) 0.7 % (0.0-7.0); Hematocrit 26.5 % (41.0-53.0); Hemoglobin 9.1 g/dL (13.5-17.5); Lymphocytes # (auto) 0.6 10 ^3/uL (0.4-5.4); Lymphocytes % (auto) 5.6 % (10.0-50.0); Mean Corpuscular Hemoglobin 23.8 pg (28.0-32.0); Mean Corpuscular Hgb Conc. 34.4 g/dL (32.0-36.0); Mean Corpuscular Volume 69.2 fL (80.0-100.0); Monocytes # (auto) 0.8 10 ^3/uL (0-1.3); Monocytes % (auto) 8.3 % (0.0-12.0); Neutrophils # (auto) 8.5 10 ^3/uL (1.6-8.6); Neutrophils % (auto) 84.4 % (37.0-80.0); Platelet Count (auto) 253 10^3/uL (140-450); Red Blood Cells 3.83 10^6/uL (4.5-5.90); White Blood Cell 10.1 10^3/uL (4.4-10.8)
[2021-01-28] MEDS ORDERED: SODIUM CHL 0.9% 1000 ML BAG XX ONE (07:00)
[2021-01-28] MEDS: HYDROmorphone HCL 2 MG/ML VL IV PRN ×4 (07:00→23:47)
[2021-01-28 07:07] LABS: Red Cell Distribution Width 20.3 % (11.8-14.3)
[2021-01-28 07:11] LABS: Potassium 3.9 mmol/L (3.5-5.1)
[2021-01-28 07:17] LABS: BUN/Creatinine Ratio 8.7; Calcium 8.4 mg/dL (8.5-10.1); Magnesium 2.2 mg/dL (1.6-2.6)
[2021-01-28 09:00] VITALS: BP 135/60
[2021-01-28] MEDS: SEVELAMER 800 MG TAB PO SCH ×4 (09:11→18:18)
[2021-01-28] MEDS: MUPIROCIN 2% OINT 15gm or 22gm EACHNOSTRI SCH ×2 (09:11→23:40)
[2021-01-28] MEDS: ASPirin 81 mg TAB PO SCH (09:12)
[2021-01-28] MEDS: RIVAROXABAN 10 MG TAB PO SCH ×2 (09:12→23:44)
[2021-01-28] MEDS: BRIMONIDINE 0.2% OPTH Soln 5ml OP SCH ×2 (09:12→23:41)
[2021-01-28] MEDS: CARVEDILOL 3.125 MG TAB PO SCH ×2 (10:19→23:43)
[2021-01-28 13:00] VITALS: BP 124/58
[2021-01-28 16:49] VITALS: BP 112/61
[2021-01-28] MEDS: LATANOPROST 0.005 % OPTH(EYE) SOL 2.5ML OP SCH (18:17)
[2021-01-28] MEDS: [UNRECOGNIZED DRUG - OTHER] OP SCH (18:17)
[2021-01-28] MEDS ORDERED: EPOETIN ALFA-EPBX 4,000 UNIT/ML VIAL SC ONE (21:00)
[2021-01-28 22:00] VITALS: BP 113/56
[2021-01-28] MEDS: ATORVASTATIN 20 MG TAB PO SCH (23:43)
[2021-01-29 05:00] VITALS: BP 128/63
[2021-01-29] MEDS: SODIUM CHLOR 0.9% PF (SALINE LOCK) 10ML VIAL/SYR IV SCH ×3 (06:12→23:46)
[2021-01-29] MEDS: CALCIUM ACETATE 667 MG CAP PO SCH ×4 (06:13→23:49)
[2021-01-29] MEDS: HYDROcodone-ACET 5/325MG TAB PO PRN ×3 (06:13→18:16)
[2021-01-29 08:30] VITALS: BP 113/58
[2021-01-29] MEDS: ASPirin 81 mg TAB PO SCH (08:59)
[2021-01-29] MEDS: MUPIROCIN 2% OINT 15gm or 22gm EACHNOSTRI SCH ×2 (08:59→23:46)
[2021-01-29] MEDS: BRIMONIDINE 0.2% OPTH Soln 5ml OP SCH ×2 (08:59→23:46)
[2021-01-29] MEDS: SEVELAMER 800 MG TAB PO SCH ×3 (08:59→17:10)
[2021-01-29] MEDS: RIVAROXABAN 10 MG TAB PO SCH ×2 (09:00→23:49)
[2021-01-29] MEDS: CARVEDILOL 3.125 MG TAB PO SCH ×2 (09:00→23:48)
[2021-01-29 12:30] VITALS: BP 113/52
[2021-01-29 17:00] VITALS: BP 111/54
[2021-01-29] MEDS: [UNRECOGNIZED DRUG - OTHER] OP SCH (17:09)
[2021-01-29] MEDS: LATANOPROST 0.005 % OPTH(EYE) SOL 2.5ML OP SCH (17:09)
[2021-01-29 17:31] VITALS: BP 111/54
[2021-01-29] MEDS: HYDROmorphone HCL 2 MG/ML VL IV PRN (21:49)
[2021-01-29 22:00] VITALS: BP 126/65
[2021-01-29] MEDS: ATORVASTATIN 20 MG TAB PO SCH (23:48)
[2021-01-30 05:00] VITALS: BP 155/73
[2021-01-30] MEDS: CALCIUM ACETATE 667 MG CAP PO SCH ×5 (06:45→21:21)
[2021-01-30] MEDS: SODIUM CHLOR 0.9% PF (SALINE LOCK) 10ML VIAL/SYR IV SCH ×3 (06:45→21:18)
[2021-01-30] MEDS: HYDROcodone-ACET 5/325MG TAB PO PRN ×2 (06:53→21:22)
[2021-01-30] MEDS: SEVELAMER 800 MG TAB PO SCH ×4 (07:59→18:24)
[2021-01-30] MEDS: MUPIROCIN 2% OINT 15gm or 22gm EACHNOSTRI SCH ×2 (08:00→21:18)
[2021-01-30] MEDS: BRIMONIDINE 0.2% OPTH Soln 5ml OP SCH ×2 (08:00→21:18)
[2021-01-30 09:00] VITALS: BP 137/61
[2021-01-30] MEDS: RIVAROXABAN 10 MG TAB PO SCH ×2 (10:00→21:21)
[2021-01-30] MEDS: CARVEDILOL 3.125 MG TAB PO SCH ×2 (10:00→21:20)
[2021-01-30] MEDS: ASPirin 81 mg TAB PO SCH (10:00)
[2021-01-30 12:50] VITALS: BP 127/67
[2021-01-30 14:51] LABS: Basophils # (auto) 0.1 10 ^3/uL (0-0.2); Basophils % (auto) 0.8 % (0.0-2.0); Eosinophils # (auto) 0.3 10 ^3/uL (0-0.8); Mean Corpuscular Hemoglobin 23.2 pg (28.0-32.0); Monocytes # (auto) 0.8 10 ^3/uL (0-1.3)
[2021-01-30 14:52] LABS: Eosinophils % (auto) 2.7 % (0.0-7.0); Hematocrit 27.5 % (41.0-53.0); Hemoglobin 9.2 g/dL (13.5-17.5); Lymphocytes # (auto) 0.8 10 ^3/uL (0.4-5.4); Lymphocytes % (auto) 7.8 % (10.0-50.0); Mean Corpuscular Hgb Conc. 33.3 g/dL (32.0-36.0); Mean Corpuscular Volume 69.5 fL (80.0-100.0); Neutrophils # (auto) 8.5 10 ^3/uL (1.6-8.6); Neutrophils % (auto) 80.7 % (37.0-80.0); Platelet Count (auto) 277 10^3/uL (140-450); Red Blood Cells 3.96 10^6/uL (4.5-5.90); White Blood Cell 10.6 10^3/uL (4.4-10.8)
[2021-01-30 14:56] LABS: Red Cell Distribution Width 20.4 % (11.8-14.3)
[2021-01-30 15:05] LABS: Calcium 8.6 mg/dL (8.5-10.1); Potassium 4.4 mmol/L (3.5-5.1)
[2021-01-30 15:09] LABS: BUN/Creatinine Ratio 7.8; Magnesium 2.3 mg/dL (1.6-2.6)
[2021-01-30 17:00] VITALS: BP 116/64
[2021-01-30] MEDS: LATANOPROST 0.005 % OPTH(EYE) SOL 2.5ML OP SCH (17:36)
[2021-01-30] MEDS: [UNRECOGNIZED DRUG - OTHER] OP SCH (17:36)
[2021-01-30] MEDS: ATORVASTATIN 20 MG TAB PO SCH (21:20)
[2021-01-30 22:00] VITALS: BP 113/51
[2021-01-31] MEDS ORDERED: SODIUM CHL 0.9% 1000 ML BAG XX ONE (02:00)
[2021-01-31 05:00] VITALS: BP 140/69
[2021-01-31] MEDS: SODIUM CHLOR 0.9% PF (SALINE LOCK) 10ML VIAL/SYR IV SCH ×3 (05:29→20:48)
[2021-01-31] MEDS: CALCIUM ACETATE 667 MG CAP PO SCH ×4 (05:29→20:50)
[2021-01-31] MEDS: SEVELAMER 800 MG TAB PO SCH ×3 (08:40→18:18)
[2021-01-31] MEDS: HYDROmorphone HCL 2 MG/ML VL IV PRN ×2 (08:43→15:23)
[2021-01-31 09:00] VITALS: BP 147/70
[2021-01-31] MEDS: MUPIROCIN 2% OINT 15gm or 22gm EACHNOSTRI SCH ×2 (10:45→20:45)
[2021-01-31] MEDS: ASPirin 81 mg TAB PO SCH (10:45)
[2021-01-31] MEDS: BRIMONIDINE 0.2% OPTH Soln 5ml OP SCH ×2 (10:45→20:49)
[2021-01-31] MEDS: RIVAROXABAN 10 MG TAB PO SCH ×2 (10:46→20:51)
[2021-01-31] MEDS: CARVEDILOL 3.125 MG TAB PO SCH ×2 (10:46→20:50)
[2021-01-31 13:00] VITALS: BP 139/71
[2021-01-31 17:00] VITALS: BP 138/66
[2021-01-31] MEDS: [UNRECOGNIZED DRUG - OTHER] OP SCH (18:00)
[2021-01-31] MEDS: LATANOPROST 0.005 % OPTH(EYE) SOL 2.5ML OP SCH (18:18)
[2021-01-31] MEDS: HYDROcodone-ACET 5/325MG TAB PO PRN (20:48)
[2021-01-31] MEDS: ATORVASTATIN 20 MG TAB PO SCH (20:50)
[2021-01-31 21:00] VITALS: BP 146/73
[2021-01-31] MEDS ORDERED: EPOETIN ALFA-EPBX 4,000 UNIT/ML VIAL SC ONE (21:00)
[2021-02-01] MEDS: CALCIUM ACETATE 667 MG CAP PO SCH ×3 (05:17→18:41)
[2021-02-01] MEDS: SODIUM CHLOR 0.9% PF (SALINE LOCK) 10ML VIAL/SYR IV SCH ×2 (05:17→13:40)
[2021-02-01 06:06] VITALS: BP 145/72
[2021-02-01] MEDS ORDERED: SODIUM CHL 0.9% 1000 ML BAG XX ONE (07:00)
[2021-02-01] MEDS: HYDROcodone-ACET 5/325MG TAB PO PRN ×2 (08:00→17:35)
[2021-02-01 09:00] VITALS: BP 150/75
[2021-02-01] MEDS: HYDROmorphone HCL 2 MG/ML VL IV PRN (09:00)
[2021-02-01] MEDS: SEVELAMER 800 MG TAB PO SCH ×3 (11:05→18:41)
[2021-02-01] MEDS: BRIMONIDINE 0.2% OPTH Soln 5ml OP SCH (11:06)
[2021-02-01] MEDS: RIVAROXABAN 10 MG TAB PO SCH (11:07)
[2021-02-01] MEDS: CARVEDILOL 3.125 MG TAB PO SCH (11:07)
[2021-02-01] MEDS: ASPirin 81 mg TAB PO SCH (11:07)
[2021-02-01] MEDS ORDERED: HYDROmorphone HCL 2 MG/ML VL IV PRN (11:45)
[2021-02-01 13:00] VITALS: BP 139/75
[2021-02-01 17:00] VITALS: BP 111/61
[2021-02-01 18:41] VITALS: BP 150/75
[2021-02-01] MEDS: LATANOPROST 0.005 % OPTH(EYE) SOL 2.5ML OP SCH (18:41)
[2021-02-01] MEDS ORDERED: EPOETIN ALFA-EPBX 4,000 UNIT/ML VIAL SC ONE (21:00)
[2021-02-03 15:53] LABS: Hepatitis A Ab IgM Negative; Hepatitis B Core IgM Negative; Hepatitis B Surface Antigen Negative (Negative)
== END 2021-02-01 19:04 | DRG 252 ==
LOC: EDBD 09:46 → EDUNIT# 09:46 → ER 09:46 → TELE 13:26 → TELE-EAST 18:04
PROVIDERS: ADMIT Nurse Practitioner Acute Care; ATTEND Internal Medicine Geriatric Medicine
PROC: B41G1ZZ Fluoroscopy of Left Lower Extremity Arteries using Low Osmolar Contrast (ICD-10-PCS; principal; 2021-01-25)
PROC: B41F1ZZ Fluoroscopy of Right Lower Extremity Arteries using Low Osmolar Contrast (ICD-10-PCS; 2021-01-25)
PROC: 047L3Z1 Dilation of Left Femoral Artery using Drug-Coated Balloon, Percutaneous Approach (ICD-10-PCS; 2021-01-26)
PROC: 047D3DZ Dilation of Left Common Iliac Artery with Intraluminal Device, Percutaneous Approach (ICD-10-PCS; 2021-01-26)
PROC: 047J3DZ Dilation of Left External Iliac Artery with Intraluminal Device, Percutaneous Approach (ICD-10-PCS; 2021-01-26)
PROC: 5A1D70Z Performance of Urinary Filtration, Intermittent, Less than 6 Hours Per Day (ICD-10-PCS; 2021-01-26)
PROC: 5A1D70Z Performance of Urinary Filtration, Intermittent, Less than 6 Hours Per Day (ICD-10-PCS; 2021-01-28)
PROC: 5A1D70Z Performance of Urinary Filtration, Intermittent, Less than 6 Hours Per Day (ICD-10-PCS; 2021-02-01)
DX: I70.223 Atherosclerosis of native arteries of extremities with rest pain, bilateral legs (principal); N18.6 End stage renal disease; I50.23 Acute on chronic systolic (congestive) heart failure; E44.0 Moderate protein-calorie malnutrition; I42.9 Cardiomyopathy, unspecified; I13.2 Hypertensive heart and chronic kidney disease with heart failure and with stage 5 chronic kidney disease, or end stage renal disease; N25.81 Secondary hyperparathyroidism of renal origin; D63.8 Anemia in other chronic diseases classified elsewhere; Z20.822 Contact with and (suspected) exposure to COVID-19; H40.9 Unspecified glaucoma; D63.1 Anemia in chronic kidney disease; E21.3 Hyperparathyroidism, unspecified; E78.5 Hyperlipidemia, unspecified; F17.210 Nicotine dependence, cigarettes, uncomplicated; Z96.659 Presence of unspecified artificial knee joint; H57.89 Other specified disorders of eye and adnexa; Z68.26 Body mass index [BMI] 26.0-26.9, adult; Z75.1 Person awaiting admission to adequate facility elsewhere; Z99.2 Dependence on renal dialysis; Z79.01 Long term (current) use of anticoagulants; Z79.899 Other long term (current) drug therapy; Z82.49 Family history of ischemic heart disease and other diseases of the circulatory system; Z83.3 Family history of diabetes mellitus
CPT/HCPCS: 36415; 71045; 76942; 80048; 80053; 80074; 82550; 83605; 83735; 83880; 84100; 84484; 85014; 85018; 85025; 85049; 85610; 85730; 87081; 87426; 90935; 93005; 93306; 93925; 96374; 96375; 97110; 97530; 99152; 99153; C1724; C1769; G0378; J2250; J2405; J3490; Q9967

== ENCOUNTER 2021-11-09 13:36 | Inpatient (IN) | payer MEDICARE, MEDICAID ==
[~2021-11-09] VITALS: Ht 182.9 cm; Wt 79.7 kg
[~2021-11-09 13:36] MED LIST changes: +GAB100C PO
[2021-11-09 15:45] LABS: Albumin 2.3 g/dL (3.4-5.0); BUN/Creatinine Ratio 5.2; Calcium 8.2 mg/dL (8.5-10.1); Potassium 4.9 mmol/L (3.5-5.1)
[2021-11-09 15:52] LABS: Bilirubin, Total 0.8 mg/dL (0.2-1.0); INR 1.44 (0.9-1.15); Partial Thromboplastin Time 41.8 sec (23.6-33.0); Total Protein 8.4 g/dL (6.4-8.2)
[2021-11-09 17:08] LABS: Basophils # (auto) 0.2 10 ^3/uL (0-0.2); Basophils % (auto) 1.2 % (0.0-2.0); Eosinophils # (auto) 0.1 10 ^3/uL (0-0.8); Eosinophils % (auto) 1.1 % (0.0-7.0); Hematocrit 19.1 % (41.0-53.0); Mean Corpuscular Hgb Conc. 33.7 g/dL (32.0-36.0); Mean Corpuscular Volume 71.3 fL (80.0-100.0); Monocytes # (auto) 1.5 10 ^3/uL (0-1.3); Monocytes % (auto) 11.8 % (0.0-12.0); Neutrophils # (auto) 9.8 10 ^3/uL (1.6-8.6); Neutrophils % (auto) 77.9 % (37.0-80.0); Red Blood Cells 2.68 10^6/uL (4.5-5.90); Red Cell Distribution Width 19.4 % (11.8-14.3); White Blood Cell 12.5 10^3/uL (4.4-10.8)
[2021-11-09 17:15] LABS: Hemoglobin 6.4 g/dL (13.5-17.5)
[2021-11-09] MEDS: cefTRIAXone 1GM/50ML D5W 50 ML IV ONE ×2 (17:49→18:40)
[2021-11-09] MEDS: PHENYLEPHRINE HCL 1 % NASAL SPRAY 15ML ONE ×2 (18:24→19:17)
[2021-11-09] MEDS ORDERED: ACETAMINOPHEN 325 MG TAB PO PRN (18:30)
[2021-11-09] MEDS ORDERED: DOCUSATE SOD 100 MG CAP PO PRN (18:30)
[2021-11-09] MEDS ORDERED: hydrALAZINE HCL 20 MG/ML VL IV PRN (18:30)
[2021-11-09] MEDS ORDERED: PHENYLEPHRINE HCL 0.5 % NASAL SPRAY 15ML ONE (18:30)
[2021-11-09] MEDS ORDERED: ONDANSETRON HCL 4 MG/2 ML VIAL IV PRN (18:30)
[2021-11-09] MEDS ORDERED: ACETAMINOPHEN 325 MG TAB PO ONE (18:30)
[2021-11-09] MEDS ORDERED: NITROGLYCERIN 0.4 MG SL TAB SL PRN (18:30)
[2021-11-09] MEDS ORDERED: MORPHINE SULFATE INJECTION 2 MG/ML SYRG IV PRN (18:30)
[2021-11-09 21:30] VITALS: BP 93/35
[2021-11-09 21:45] VITALS: BP 95/41
[2021-11-09 22:00] VITALS: BP 93/46
[2021-11-09] MEDS: BRIMONIDINE 0.2% OPTH Soln 5ml EACHEYE SCH (22:01)
[2021-11-09 22:50] VITALS: BP 114/65
[2021-11-09] MEDS: CALCIUM ACETATE 667 MG CAP PO SCH (23:00)
[2021-11-09] MEDS: CINACALCET HYDROCHLORIDE 30 MG TAB PO SCH (23:00)
[2021-11-09] MEDS: HYDROcodone-ACET 5/325MG TAB PO PRN (23:30)
[2021-11-10] VITALS (13 sets, daily range): BP systolic 96–127; BP diastolic 52–77
[2021-11-10 05:32] LABS: Eosinophils # (auto) 0.1 10 ^3/uL (0-0.8); Hematocrit 20.5 % (41.0-53.0); Mean Corpuscular Volume 71.8 fL (80.0-100.0); Monocytes # (auto) 1.3 10 ^3/uL (0-1.3); Neutrophils # (auto) 9.2 10 ^3/uL (1.6-8.6); Red Blood Cells 2.85 10^6/uL (4.5-5.90)
[2021-11-10 05:35] LABS: Basophils # (auto) 0.1 10 ^3/uL (0-0.2); Basophils % (auto) 0.7 % (0.0-2.0); Lymphocytes # (auto) 1.1 10 ^3/uL (0.4-5.4); Lymphocytes % (auto) 9.4 % (10.0-50.0); Mean Corpuscular Hemoglobin 24.3 pg (28.0-32.0); Mean Corpuscular Hgb Conc. 33.8 g/dL (32.0-36.0); Monocytes % (auto) 11.4 % (0.0-12.0); Neutrophils % (auto) 77.5 % (37.0-80.0); Red Cell Distribution Width 19.4 % (11.8-14.3); White Blood Cell 11.8 10^3/uL (4.4-10.8)
[2021-11-10 05:39] LABS: Potassium 4.9 mmol/L (3.5-5.1)
[2021-11-10 05:42] LABS: Hemoglobin 6.9 g/dL (13.5-17.5)
[2021-11-10 05:47] LABS: Albumin 2.2 g/dL (3.4-5.0); BUN/Creatinine Ratio 5.6; Bilirubin, Total 0.9 mg/dL (0.2-1.0); Calcium 7.9 mg/dL (8.5-10.1)
[2021-11-10] MEDS: BRIMONIDINE 0.2% OPTH Soln 5ml EACHEYE SCH ×2 (06:08→18:47)
[2021-11-10] MEDS: CALCIUM ACETATE 667 MG CAP PO SCH ×4 (06:21→21:43)
[2021-11-10] MEDS: amLODIPine BESYLATE 5 MG TAB PO SCH (08:44)
[2021-11-10] MEDS: GABAPENTIN 100 MG CAP PO SCH (08:44)
[2021-11-10] MEDS ORDERED: ASPI-543 PO (09:27)
[2021-11-10] MEDS ORDERED: CIPR500T4 PO (09:27)
[2021-11-10] MEDS ORDERED: HYDR-4902 PO (09:27)
[2021-11-10] MEDS ORDERED: ATO40T PO (09:27)
[2021-11-10] MEDS ORDERED: BISA10SU45 RE (09:27)
[2021-11-10] MEDS ORDERED: ACET-1156 PO (09:27)
[2021-11-10] MEDS ORDERED: MAGNSUS48 PO (09:27)
[2021-11-10] MEDS ORDERED: CARV6.2551 PO (09:27)
[2021-11-10] MEDS ORDERED: B-COTAB10 OR (09:27)
[2021-11-10] MEDS ORDERED: METR500T14 PO (09:27)
[2021-11-10] MEDS ORDERED: APIX5TAB4 PO (09:27)
[2021-11-10] MEDS ORDERED: LORazepam 2MG/ML-1ML VIAL IV PRN (14:00)
[2021-11-10] MEDS ORDERED: HYDROmorphone HCL 2 MG/ML VL/or syr IV PRN (14:00)
[2021-11-10] MEDS: LATANOPROST 0.005 % OPTH(EYE) SOL 2.5ML EACHEYE SCH (18:00)
[2021-11-10] MEDS: CINACALCET HYDROCHLORIDE 30 MG TAB PO SCH (21:43)
[2021-11-11 05:00] VITALS: BP 99/53
[2021-11-11] MEDS: CALCIUM ACETATE 667 MG CAP PO SCH ×4 (06:23→22:30)
[2021-11-11] MEDS: BRIMONIDINE 0.2% OPTH Soln 5ml EACHEYE SCH ×2 (06:23→18:21)
[2021-11-11 08:53] VITALS: BP 119/67
[2021-11-11] MEDS: amLODIPine BESYLATE 5 MG TAB PO SCH (09:16)
[2021-11-11] MEDS: GABAPENTIN 100 MG CAP PO SCH (09:16)
[2021-11-11 12:34] VITALS: BP 115/66
[2021-11-11 14:11] LABS: Basophils # (auto) 0.1 10 ^3/uL (0-0.2); Eosinophils # (auto) 0.2 10 ^3/uL (0-0.8); Hemoglobin 7.5 g/dL (13.5-17.5); Monocytes # (auto) 1.2 10 ^3/uL (0-1.3)
[2021-11-11 14:12] LABS: Basophils % (auto) 0.4 % (0.0-2.0); Eosinophils % (auto) 1.4 % (0.0-7.0); Hematocrit 21.9 % (41.0-53.0); Lymphocytes # (auto) 1.1 10 ^3/uL (0.4-5.4); Lymphocytes % (auto) 7.4 % (10.0-50.0); Mean Corpuscular Hemoglobin 24.8 pg (28.0-32.0); Mean Corpuscular Hgb Conc. 34.2 g/dL (32.0-36.0); Mean Corpuscular Volume 72.5 fL (80.0-100.0); Monocytes % (auto) 8.6 % (0.0-12.0); Neutrophils # (auto) 11.8 10 ^3/uL (1.6-8.6); Neutrophils % (auto) 82.2 % (37.0-80.0); Nucleated Red Blood Cells % 0.1 %; Red Blood Cells 3.02 10^6/uL (4.5-5.90); Red Cell Distribution Width 20.1 % (11.8-14.3); White Blood Cell 14.3 10^3/uL (4.4-10.8)
[2021-11-11] MEDS: HYDROcodone-ACET 5/325MG TAB PO PRN ×2 (14:50→22:50)
[2021-11-11 15:00] LABS: BUN/Creatinine Ratio 6.1; Calcium 7.7 mg/dL (8.5-10.1); Potassium 5.4 mmol/L (3.5-5.1)
[2021-11-11 16:54] VITALS: BP 111/79
[2021-11-11] MEDS: LATANOPROST 0.005 % OPTH(EYE) SOL 2.5ML EACHEYE SCH (18:21)
[2021-11-11 21:39] VITALS: BP 105/55
[2021-11-11] MEDS: CINACALCET HYDROCHLORIDE 30 MG TAB PO SCH (22:30)
[2021-11-12 05:00] VITALS: BP 108/67
[2021-11-12 06:00] LABS: Basophils # (auto) 0.1 10 ^3/uL (0-0.2); Eosinophils # (auto) 0.2 10 ^3/uL (0-0.8); Eosinophils % (auto) 1.8 % (0.0-7.0); Hematocrit 21.1 % (41.0-53.0); Hemoglobin 7.2 g/dL (13.5-17.5); Mean Corpuscular Hemoglobin 24.6 pg (28.0-32.0)
[2021-11-12 06:01] LABS: Basophils % (auto) 0.5 % (0.0-2.0); Lymphocytes % (auto) 8.3 % (10.0-50.0); Mean Corpuscular Hgb Conc. 33.8 g/dL (32.0-36.0); Mean Corpuscular Volume 72.6 fL (80.0-100.0); Monocytes # (auto) 1.3 10 ^3/uL (0-1.3); Monocytes % (auto) 10.3 % (0.0-12.0); Neutrophils % (auto) 79.1 % (37.0-80.0); Red Blood Cells 2.91 10^6/uL (4.5-5.90); White Blood Cell 12.6 10^3/uL (4.4-10.8)
[2021-11-12 06:07] LABS: Red Cell Distribution Width 20.2 % (11.8-14.3)
[2021-11-12 06:14] LABS: BUN/Creatinine Ratio 6.8; Calcium 7.3 mg/dL (8.5-10.1); Potassium 5.5 mmol/L (3.5-5.1)
[2021-11-12] MEDS: CALCIUM ACETATE 667 MG CAP PO SCH ×4 (06:53→21:23)
[2021-11-12] MEDS: BRIMONIDINE 0.2% OPTH Soln 5ml EACHEYE SCH ×2 (06:53→21:20)
[2021-11-12] MEDS: HYDROcodone-ACET 5/325MG TAB PO PRN ×3 (06:54→21:26)
[2021-11-12] MEDS ORDERED: SODIUM CHL 0.9% 1000 ML BAG XX ONE (07:00)
[2021-11-12 08:36] VITALS: BP 104/60
[2021-11-12] MEDS: GABAPENTIN 100 MG CAP PO SCH (09:22)
[2021-11-12] MEDS: amLODIPine BESYLATE 5 MG TAB PO SCH (10:00)
[2021-11-12 12:35] VITALS: BP 102/64
[2021-11-12 16:15] VITALS: BP 104/50
[2021-11-12] MEDS: LATANOPROST 0.005 % OPTH(EYE) SOL 2.5ML EACHEYE SCH (18:11)
[2021-11-12] MEDS ORDERED: EPOETIN ALFA-EPBX 4,000 UNIT/ML VIAL SC ONE (21:00)
[2021-11-12] MEDS: CINACALCET HYDROCHLORIDE 30 MG TAB PO SCH (21:23)
[2021-11-12 22:00] VITALS: BP 95/55
[2021-11-13 05:00] VITALS: BP 125/64
[2021-11-13] MEDS: HYDROcodone-ACET 5/325MG TAB PO PRN (05:26)
[2021-11-13] MEDS: BRIMONIDINE 0.2% OPTH Soln 5ml EACHEYE SCH ×2 (06:46→18:00)
[2021-11-13] MEDS: CALCIUM ACETATE 667 MG CAP PO SCH ×4 (06:46→23:36)
[2021-11-13 08:00] VITALS: BP 119/67
[2021-11-13 08:30] VITALS: BP 111/63
[2021-11-13] MEDS: GABAPENTIN 100 MG CAP PO SCH (09:57)
[2021-11-13] MEDS: amLODIPine BESYLATE 5 MG TAB PO SCH (09:58)
[2021-11-13 12:30] VITALS: BP 97/47
[2021-11-13 17:00] VITALS: BP 117/66
[2021-11-13] MEDS: PANTOPRAZOLE 40 MG/10 ML VIAL INJ IV SCH ×2 (17:59→23:35)
[2021-11-13] MEDS: LATANOPROST 0.005 % OPTH(EYE) SOL 2.5ML EACHEYE SCH (18:00)
[2021-11-13 22:00] VITALS: BP 103/53
[2021-11-13] MEDS: CINACALCET HYDROCHLORIDE 30 MG TAB PO SCH (23:36)
[2021-11-14] MEDS: HYDROcodone-ACET 5/325MG TAB PO PRN ×2 (00:14→06:11)
[2021-11-14 05:00] VITALS: BP 108/57
[2021-11-14] MEDS: CALCIUM ACETATE 667 MG CAP PO SCH ×4 (06:10→21:50)
[2021-11-14] MEDS: BRIMONIDINE 0.2% OPTH Soln 5ml EACHEYE SCH ×2 (06:10→18:27)
[2021-11-14 08:00] VITALS: BP 115/79
[2021-11-14 09:00] VITALS: BP 105/61
[2021-11-14] MEDS: GABAPENTIN 100 MG CAP PO SCH (10:00)
[2021-11-14] MEDS: PANTOPRAZOLE 40 MG/10 ML VIAL INJ IV SCH ×2 (10:00→21:46)
[2021-11-14] MEDS: amLODIPine BESYLATE 5 MG TAB PO SCH (10:00)
[2021-11-14 12:00] VITALS: BP 110/62
[2021-11-14] MEDS ORDERED: LACTULOSE 20Gm/30ML SOLN PO PRN (14:00)
[2021-11-14 16:00] VITALS: BP 85/50
[2021-11-14] MEDS: LATANOPROST 0.005 % OPTH(EYE) SOL 2.5ML EACHEYE SCH (18:27)
[2021-11-14] MEDS: CARVEDILOL 3.125 MG TAB PO SCH (21:48)
[2021-11-14] MEDS: CINACALCET HYDROCHLORIDE 30 MG TAB PO SCH (21:51)
[2021-11-14 22:00] VITALS: BP 83/44
[2021-11-14] MEDS ORDERED: CARVEDILOL 3.125 MG TAB PO ONE (22:00)
[2021-11-14] MEDS ORDERED: SODIUM CHLORIDE 0.9% 500 ML IV ONE (22:15)
[2021-11-15 04:54] VITALS: BP 99/65
[2021-11-15] MEDS: BRIMONIDINE 0.2% OPTH Soln 5ml EACHEYE SCH ×2 (05:52→18:13)
[2021-11-15] MEDS: CALCIUM ACETATE 667 MG CAP PO SCH ×4 (05:54→21:46)
[2021-11-15] MEDS ORDERED: SODIUM CHL 0.9% 1000 ML BAG XX ONE (07:00)
[2021-11-15] MEDS ORDERED: LIDOCAINE VISCOUS 2% 15ML UD ONE (08:39)
[2021-11-15] MEDS ORDERED: SODIUM CHLORIDE LOCK 10 ML ONE (08:39)
[2021-11-15] MEDS ORDERED: MIDAZOLAM HCL 5 MG/ML-1ML VIAL ONE (08:39)
[2021-11-15] MEDS ORDERED: fentaNYL CITRATE 100 MCG/2 ML VL ONE (08:40)
[2021-11-15] MEDS ORDERED: diphenhdrAMINE HCL 50 MG/1 ML VL ONE (08:40)
[2021-11-15 09:36] LABS: Basophils # (auto) 0.1 10 ^3/uL (0-0.2); Basophils % (auto) 0.6 % (0.0-2.0); Eosinophils # (auto) 0.2 10 ^3/uL (0-0.8); Eosinophils % (auto) 1.7 % (0.0-7.0); Hematocrit 19.5 % (41.0-53.0); Lymphocytes # (auto) 1.2 10 ^3/uL (0.4-5.4); Mean Corpuscular Hemoglobin 24.5 pg (28.0-32.0); Mean Corpuscular Hgb Conc. 33.9 g/dL (32.0-36.0); Mean Corpuscular Volume 72.3 fL (80.0-100.0); Monocytes # (auto) 1.4 10 ^3/uL (0-1.3); Monocytes % (auto) 10.3 % (0.0-12.0); Neutrophils # (auto) 10.3 10 ^3/uL (1.6-8.6); Neutrophils % (auto) 78.4 % (37.0-80.0); White Blood Cell 13.2 10^3/uL (4.4-10.8)
[2021-11-15] MEDS: GABAPENTIN 100 MG CAP PO SCH (09:42)
[2021-11-15] MEDS: PANTOPRAZOLE 40 MG/10 ML VIAL INJ IV SCH ×2 (09:42→21:46)
[2021-11-15] MEDS: CARVEDILOL 3.125 MG TAB PO SCH ×2 (09:42→21:46)
[2021-11-15] MEDS: amLODIPine BESYLATE 5 MG TAB PO SCH (09:43)
[2021-11-15 09:49] LABS: Hemoglobin 6.6 g/dL (13.5-17.5); Red Cell Distribution Width 21.1 % (11.8-14.3)
[2021-11-15 09:59] LABS: Calcium 6.6 mg/dL (8.5-10.1); Potassium 4.6 mmol/L (3.5-5.1)
[2021-11-15 10:03] LABS: BUN/Creatinine Ratio 5.7
[2021-11-15 10:13] LABS: INR 1.46 (0.9-1.15)
[2021-11-15 15:13] VITALS: BP 117/75
[2021-11-15 15:28] VITALS: BP 105/46
[2021-11-15 17:00] VITALS: BP 147/99
[2021-11-15 17:55] VITALS: BP 104/52
[2021-11-15] MEDS: LATANOPROST 0.005 % OPTH(EYE) SOL 2.5ML EACHEYE SCH (18:13)
[2021-11-15] MEDS ORDERED: EPOETIN ALFA-EPBX 4,000 UNIT/ML VIAL SC ONE (21:00)
[2021-11-15] MEDS: HYDROcodone-ACET 5/325MG TAB PO PRN (21:04)
[2021-11-15] MEDS: CINACALCET HYDROCHLORIDE 30 MG TAB PO SCH (21:46)
[2021-11-15 22:00] VITALS: BP 101/66
[2021-11-16] VITALS (9 sets, daily range): BP systolic 105–117; BP diastolic 50–70
[2021-11-16] MEDS: BRIMONIDINE 0.2% OPTH Soln 5ml EACHEYE SCH ×2 (06:12→18:40)
[2021-11-16] MEDS: CALCIUM ACETATE 667 MG CAP PO SCH ×4 (07:00→21:36)
[2021-11-16 08:29] LABS: Basophils # (auto) 0.1 10 ^3/uL (0-0.2); Basophils % (auto) 0.8 % (0.0-2.0); Hemoglobin 8.2 g/dL (13.5-17.5); Lymphocytes # (auto) 1.1 10 ^3/uL (0.4-5.4); Monocytes # (auto) 1.6 10 ^3/uL (0-1.3); White Blood Cell 15.1 10^3/uL (4.4-10.8)
[2021-11-16 08:31] LABS: Eosinophils # (auto) 0.2 10 ^3/uL (0-0.8); Eosinophils % (auto) 1.5 % (0.0-7.0); Hematocrit 24.5 % (41.0-53.0); Lymphocytes % (auto) 7.1 % (10.0-50.0); Mean Corpuscular Hemoglobin 24.3 pg (28.0-32.0); Mean Corpuscular Hgb Conc. 33.3 g/dL (32.0-36.0); Mean Corpuscular Volume 72.9 fL (80.0-100.0); Monocytes % (auto) 10.3 % (0.0-12.0); Neutrophils # (auto) 12.1 10 ^3/uL (1.6-8.6); Neutrophils % (auto) 80.3 % (37.0-80.0); Red Blood Cells 3.35 10^6/uL (4.5-5.90)
[2021-11-16 08:38] LABS: Red Cell Distribution Width 20.7 % (11.8-14.3)
[2021-11-16] MEDS ORDERED: LIDOCAINE VISCOUS 2% 15ML UD ONE (09:16)
[2021-11-16] MEDS ORDERED: MIDAZOLAM HCL 5 MG/ML-1ML VIAL ONE (09:16)
[2021-11-16] MEDS ORDERED: diphenhdrAMINE HCL 50 MG/1 ML VL ONE (09:16)
[2021-11-16] MEDS ORDERED: LIDOCAINE 2%HCL (LOCAL ANESTH.) INJ 10ml MDV ONE ×3 (09:17→10:11)
[2021-11-16] MEDS ORDERED: fentaNYL CITRATE 100 MCG/2 ML VL ONE ×2 (09:17→09:43)
[2021-11-16] MEDS ORDERED: IODIXANOL 320MG/ML 100ML BTL IV ONE (09:17)
[2021-11-16] MEDS: CARVEDILOL 3.125 MG TAB PO SCH ×2 (09:23→21:37)
[2021-11-16] MEDS: GABAPENTIN 100 MG CAP PO SCH (09:23)
[2021-11-16] MEDS: amLODIPine BESYLATE 5 MG TAB PO SCH (09:23)
[2021-11-16] MEDS: PANTOPRAZOLE 40 MG/10 ML VIAL INJ IV SCH ×2 (09:23→21:36)
[2021-11-16] MEDS ORDERED: ANGIOMAX 250 MG VIAL IV ONE (09:42)
[2021-11-16] MEDS ORDERED: VERAPAMIL 2.5MG/ML INJ 2ML VIAL IV ONE (09:43)
[2021-11-16] MEDS ORDERED: MIDAZOLAM HCL 2MG/2ML 2ml VIAL (1mg/ml) ONE (09:43)
[2021-11-16] MEDS ORDERED: SODIUM CHL 0.9% 0 ML ONE (09:43)
[2021-11-16] MEDS ORDERED: HEPARIN SODIUM (PORCINE) 5000 UNITS/ML 1ML VIAL ONE (09:43)
[2021-11-16] MEDS: SODIUM CHLOR 0.9% PF (SALINE LOCK) 10ML VIAL/SYR IV SCH ×2 (14:24→21:36)
[2021-11-16] MEDS: LATANOPROST 0.005 % OPTH(EYE) SOL 2.5ML EACHEYE SCH (18:00)
[2021-11-16] MEDS: Nepro With Carbsteady ButterPecan 8oz Carton PO SCH (18:00)
[2021-11-16] MEDS: CINACALCET HYDROCHLORIDE 30 MG TAB PO SCH (21:37)
[2021-11-17 05:00] VITALS: BP 103/53
[2021-11-17] MEDS: SODIUM CHLOR 0.9% PF (SALINE LOCK) 10ML VIAL/SYR IV SCH ×3 (06:00→22:38)
[2021-11-17] MEDS: BRIMONIDINE 0.2% OPTH Soln 5ml EACHEYE SCH ×2 (06:07→18:24)
[2021-11-17] MEDS: CALCIUM ACETATE 667 MG CAP PO SCH ×4 (07:00→22:00)
[2021-11-17] MEDS ORDERED: SODIUM CHL 0.9% 1000 ML BAG XX ONE (07:00)
[2021-11-17] MEDS: Nepro With Carbsteady ButterPecan 8oz Carton PO SCH ×2 (08:00→18:24)
[2021-11-17 09:00] VITALS: BP_SYST 108; BP_SYST 150; BP_DIAS 57
[2021-11-17] MEDS: amLODIPine BESYLATE 5 MG TAB PO SCH (10:00)
[2021-11-17] MEDS: GABAPENTIN 100 MG CAP PO SCH (10:00)
[2021-11-17] MEDS: CARVEDILOL 3.125 MG TAB PO SCH ×2 (10:00→22:00)
[2021-11-17] MEDS: PANTOPRAZOLE 40 MG/10 ML VIAL INJ IV SCH ×2 (10:00→22:35)
[2021-11-17] MEDS: HYDROcodone-ACET 5/325MG TAB PO PRN ×2 (10:04→18:54)
[2021-11-17] MEDS: LATANOPROST 0.005 % OPTH(EYE) SOL 2.5ML EACHEYE SCH (18:24)
[2021-11-17 18:54] LABS: Basophils # (auto) 0.1 10 ^3/uL (0-0.2); Basophils % (auto) 0.8 % (0.0-2.0); Eosinophils # (auto) 0.2 10 ^3/uL (0-0.8); Eosinophils % (auto) 1.7 % (0.0-7.0); Hematocrit 25.7 % (41.0-53.0); Hemoglobin 8.4 g/dL (13.5-17.5); Lymphocytes % (auto) 7.6 % (10.0-50.0); Mean Corpuscular Hgb Conc. 32.8 g/dL (32.0-36.0); Mean Corpuscular Volume 73.3 fL (80.0-100.0); Monocytes # (auto) 1.2 10 ^3/uL (0-1.3); Neutrophils # (auto) 11.2 10 ^3/uL (1.6-8.6); Neutrophils % (auto) 80.9 % (37.0-80.0); Red Blood Cells 3.51 10^6/uL (4.5-5.90); Red Cell Distribution Width 21.3 % (11.8-14.3); White Blood Cell 13.8 10^3/uL (4.4-10.8)
[2021-11-17] MEDS ORDERED: EPOETIN ALFA-EPBX 4,000 UNIT/ML VIAL SC ONE (21:00)
[2021-11-17 21:58] VITALS: BP 94/57
[2021-11-18] MEDS: HYDROcodone-ACET 5/325MG TAB PO PRN ×2 (00:38→06:44)
[2021-11-18 05:49] VITALS: BP 111/77
[2021-11-18 05:52] LABS: Basophils # (auto) 0.1 10 ^3/uL (0-0.2); Eosinophils # (auto) 0.2 10 ^3/uL (0-0.8); Hematocrit 24.9 % (41.0-53.0); Hemoglobin 8.3 g/dL (13.5-17.5); Lymphocytes # (auto) 1.2 10 ^3/uL (0.4-5.4); Lymphocytes % (auto) 9.4 % (10.0-50.0); Mean Corpuscular Hemoglobin 24.6 pg (28.0-32.0); Mean Corpuscular Hgb Conc. 33.4 g/dL (32.0-36.0); Mean Corpuscular Volume 73.5 fL (80.0-100.0); Monocytes # (auto) 1.3 10 ^3/uL (0-1.3); Monocytes % (auto) 10.2 % (0.0-12.0); Neutrophils # (auto) 9.7 10 ^3/uL (1.6-8.6); Neutrophils % (auto) 77.4 % (37.0-80.0); Red Blood Cells 3.38 10^6/uL (4.5-5.90); White Blood Cell 12.6 10^3/uL (4.4-10.8)
[2021-11-18 05:54] LABS: Red Cell Distribution Width 21.2 % (11.8-14.3)
[2021-11-18] MEDS: SODIUM CHLOR 0.9% PF (SALINE LOCK) 10ML VIAL/SYR IV SCH ×3 (05:56→21:55)
[2021-11-18] MEDS: BRIMONIDINE 0.2% OPTH Soln 5ml EACHEYE SCH ×2 (06:02→18:21)
[2021-11-18 06:18] LABS: Potassium 3.9 mmol/L (3.5-5.1)
[2021-11-18 06:24] LABS: BUN/Creatinine Ratio 4.2; Calcium 7.3 mg/dL (8.5-10.1)
[2021-11-18] MEDS: CALCIUM ACETATE 667 MG CAP PO SCH ×4 (07:00→21:55)
[2021-11-18] MEDS: Nepro With Carbsteady ButterPecan 8oz Carton PO SCH ×2 (08:00→18:20)
[2021-11-18 09:00] VITALS: BP 110/71
[2021-11-18] MEDS ORDERED: LIDOCAINE VISCOUS 2% 15ML UD ONE (09:26)
[2021-11-18] MEDS ORDERED: fentaNYL CITRATE 100 MCG/2 ML VL ONE (09:27)
[2021-11-18] MEDS ORDERED: MIDAZOLAM HCL 5 MG/ML-1ML VIAL ONE (09:27)
[2021-11-18] MEDS ORDERED: diphenhdrAMINE HCL 50 MG/1 ML VL ONE (09:27)
[2021-11-18] MEDS ORDERED: SODIUM CHLORIDE LOCK 10 ML ONE (09:29)
[2021-11-18] MEDS: CARVEDILOL 3.125 MG TAB PO SCH ×2 (10:00→21:55)
[2021-11-18] MEDS: amLODIPine BESYLATE 5 MG TAB PO SCH (10:00)
[2021-11-18] MEDS: PANTOPRAZOLE 40 MG/10 ML VIAL INJ IV SCH ×2 (12:07→21:56)
[2021-11-18] MEDS: GABAPENTIN 100 MG CAP PO SCH (12:07)
[2021-11-18] MEDS: CALCITRIOL 0.25 MCG CAP PO SCH (12:08)
[2021-11-18 13:00] VITALS: BP 92/58
[2021-11-18 14:27] LABS: INR 1.34 (0.9-1.15)
[2021-11-18 17:00] VITALS: BP 94/61
[2021-11-18] MEDS: LATANOPROST 0.005 % OPTH(EYE) SOL 2.5ML EACHEYE SCH (18:21)
[2021-11-18 22:00] VITALS: BP 112/68
[2021-11-19 05:52] VITALS: BP 101/46
[2021-11-19] MEDS: SODIUM CHLOR 0.9% PF (SALINE LOCK) 10ML VIAL/SYR IV SCH ×3 (06:00→21:22)
[2021-11-19] MEDS: HYDROcodone-ACET 5/325MG TAB PO PRN (06:12)
[2021-11-19] MEDS: BRIMONIDINE 0.2% OPTH Soln 5ml EACHEYE SCH ×2 (06:18→17:28)
[2021-11-19] MEDS: CALCIUM ACETATE 667 MG CAP PO SCH ×4 (06:28→21:23)
[2021-11-19] MEDS ORDERED: SODIUM CHL 0.9% 1000 ML BAG XX ONE (07:00)
[2021-11-19] MEDS: Nepro With Carbsteady ButterPecan 8oz Carton PO SCH ×2 (08:42→17:27)
[2021-11-19 09:00] VITALS: BP 104/56
[2021-11-19] MEDS: amLODIPine BESYLATE 5 MG TAB PO SCH (10:00)
[2021-11-19] MEDS: PANTOPRAZOLE 40 MG/10 ML VIAL INJ IV SCH ×2 (10:00→21:23)
[2021-11-19] MEDS: CARVEDILOL 3.125 MG TAB PO SCH ×2 (10:00→21:23)
[2021-11-19] MEDS: GABAPENTIN 100 MG CAP PO SCH (10:00)
[2021-11-19] MEDS: CALCITRIOL 0.25 MCG CAP PO SCH (10:00)
[2021-11-19 13:00] VITALS: BP 99/60
[2021-11-19 16:38] LABS: Basophils # (auto) 0.3 10 ^3/uL (0-0.2); Basophils % (auto) 2.1 % (0.0-2.0); Eosinophils # (auto) 0.2 10 ^3/uL (0-0.8); Eosinophils % (auto) 1.6 % (0.0-7.0); Hematocrit 23.7 % (41.0-53.0); Hemoglobin 7.9 g/dL (13.5-17.5); Lymphocytes % (auto) 8.3 % (10.0-50.0); Mean Corpuscular Hemoglobin 24.1 pg (28.0-32.0); Mean Corpuscular Hgb Conc. 33.2 g/dL (32.0-36.0); Mean Corpuscular Volume 72.6 fL (80.0-100.0); Monocytes # (auto) 0.9 10 ^3/uL (0-1.3); Monocytes % (auto) 7.6 % (0.0-12.0); Neutrophils # (auto) 9.6 10 ^3/uL (1.6-8.6); Neutrophils % (auto) 80.4 % (37.0-80.0); Nucleated Red Blood Cells % 0.1 %; Red Blood Cells 3.27 10^6/uL (4.5-5.90); White Blood Cell 11.9 10^3/uL (4.4-10.8)
[2021-11-19 16:39] LABS: Red Cell Distribution Width 21.2 % (11.8-14.3)
[2021-11-19] MEDS ORDERED: ALBUMIN 25% 100 ML IV ONE (16:45)
[2021-11-19 16:55] LABS: Albumin 1.9 g/dL (3.4-5.0); Calcium 7.1 mg/dL (8.5-10.1); Potassium 4.1 mmol/L (3.5-5.1)
[2021-11-19 16:57] LABS: Bilirubin, Total 0.6 mg/dL (0.2-1.0); Total Protein 7.6 g/dL (6.4-8.2)
[2021-11-19 17:00] VITALS: BP 99/58
[2021-11-19] MEDS: LATANOPROST 0.005 % OPTH(EYE) SOL 2.5ML EACHEYE SCH (17:27)
[2021-11-19] MEDS ORDERED: EPOETIN ALFA-EPBX 4,000 UNIT/ML VIAL SC ONE (21:00)
[2021-11-19 22:00] VITALS: BP 99/63
[2021-11-20] MEDS: HYDROcodone-ACET 5/325MG TAB PO PRN ×2 (03:00→17:26)
[2021-11-20 04:54] VITALS: BP 106/65
[2021-11-20] MEDS: SODIUM CHLOR 0.9% PF (SALINE LOCK) 10ML VIAL/SYR IV SCH ×3 (06:03→21:12)
[2021-11-20] MEDS: BRIMONIDINE 0.2% OPTH Soln 5ml EACHEYE SCH ×2 (06:11→17:27)
[2021-11-20] MEDS: CALCIUM ACETATE 667 MG CAP PO SCH ×4 (06:33→21:30)
[2021-11-20 09:00] VITALS: BP 103/63
[2021-11-20] MEDS: GABAPENTIN 100 MG CAP PO SCH (09:17)
[2021-11-20] MEDS: CALCITRIOL 0.25 MCG CAP PO SCH (09:17)
[2021-11-20] MEDS: PANTOPRAZOLE 40 MG/10 ML VIAL INJ IV SCH ×2 (09:21→21:30)
[2021-11-20] MEDS: amLODIPine BESYLATE 5 MG TAB PO SCH (09:45)
[2021-11-20] MEDS: CARVEDILOL 3.125 MG TAB PO SCH ×2 (09:46→21:11)
[2021-11-20 13:00] VITALS: BP 94/52
[2021-11-20 17:00] VITALS: BP 96/64
[2021-11-20] MEDS: LATANOPROST 0.005 % OPTH(EYE) SOL 2.5ML EACHEYE SCH (17:26)
[2021-11-20] MEDS: Nepro With Carbsteady ButterPecan 8oz Carton PO SCH ×2 (18:00→19:46)
[2021-11-20 20:00] VITALS: BP 90/54
[2021-11-21 05:00] VITALS: BP 91/52
[2021-11-21] MEDS: SODIUM CHLOR 0.9% PF (SALINE LOCK) 10ML VIAL/SYR IV SCH ×3 (05:56→21:44)
[2021-11-21] MEDS: BRIMONIDINE 0.2% OPTH Soln 5ml EACHEYE SCH ×2 (05:58→18:30)
[2021-11-21] MEDS: CALCIUM ACETATE 667 MG CAP PO SCH ×4 (06:41→21:51)
[2021-11-21 08:00] VITALS: BP 98/62
[2021-11-21] MEDS: CALCITRIOL 0.25 MCG CAP PO SCH (09:00)
[2021-11-21] MEDS: PANTOPRAZOLE 40 MG/10 ML VIAL INJ IV SCH ×2 (09:00→21:49)
[2021-11-21] MEDS: GABAPENTIN 100 MG CAP PO SCH (09:00)
[2021-11-21] MEDS: HYDROcodone-ACET 5/325MG TAB PO PRN ×3 (09:11→17:07)
[2021-11-21] MEDS: CARVEDILOL 3.125 MG TAB PO SCH ×2 (09:26→21:53)
[2021-11-21] MEDS: amLODIPine BESYLATE 5 MG TAB PO SCH (09:27)
[2021-11-21 12:00] VITALS: BP 98/58
[2021-11-21] MEDS: Nepro With Carbsteady ButterPecan 8oz Carton PO SCH ×2 (12:45→18:00)
[2021-11-21 16:00] VITALS: BP 104/55
[2021-11-21] MEDS: LATANOPROST 0.005 % OPTH(EYE) SOL 2.5ML EACHEYE SCH (18:00)
[2021-11-21 22:00] VITALS: BP 86/47
[2021-11-22 05:00] VITALS: BP 107/51
[2021-11-22] MEDS: SODIUM CHLOR 0.9% PF (SALINE LOCK) 10ML VIAL/SYR IV SCH ×3 (05:43→21:54)
[2021-11-22] MEDS: CALCIUM ACETATE 667 MG CAP PO SCH ×4 (06:36→21:57)
[2021-11-22] MEDS: BRIMONIDINE 0.2% OPTH Soln 5ml EACHEYE SCH ×2 (06:36→17:19)
[2021-11-22] MEDS ORDERED: SODIUM CHL 0.9% 1000 ML BAG XX ONE (07:00)
[2021-11-22 08:00] VITALS: BP 97/57
[2021-11-22] MEDS: GABAPENTIN 100 MG CAP PO SCH (08:59)
[2021-11-22] MEDS: PANTOPRAZOLE 40 MG/10 ML VIAL INJ IV SCH ×3 (08:59→21:54)
[2021-11-22] MEDS: amLODIPine BESYLATE 5 MG TAB PO SCH (09:02)
[2021-11-22] MEDS: CARVEDILOL 3.125 MG TAB PO SCH ×2 (09:03→21:57)
[2021-11-22] MEDS: Nepro With Carbsteady ButterPecan 8oz Carton PO SCH ×2 (09:04→17:26)
[2021-11-22] MEDS: CALCITRIOL 0.25 MCG CAP PO SCH (09:13)
[2021-11-22] MEDS: HYDROcodone-ACET 5/325MG TAB PO PRN ×2 (09:55→15:52)
[2021-11-22 10:38] LABS: Hemoglobin 7.4 g/dL (13.5-17.5)
[2021-11-22 10:40] LABS: Hematocrit 22.4 % (41.0-53.0)
[2021-11-22 12:00] VITALS: BP 111/67
[2021-11-22 16:00] VITALS: BP 100/55
[2021-11-22] MEDS: LATANOPROST 0.005 % OPTH(EYE) SOL 2.5ML EACHEYE SCH (17:18)
[2021-11-22] MEDS: Pro-Stat SF 30ml Vanilla PO SCH (17:27)
[2021-11-22] MEDS ORDERED: EPOETIN ALFA-EPBX 10,000 UNIT/1ML VIAL SC ONE (21:00)
[2021-11-22 22:00] VITALS: BP 98/54
[2021-11-23] MEDS: HYDROcodone-ACET 5/325MG TAB PO PRN (04:00)
[2021-11-23 05:00] VITALS: BP 94/55
[2021-11-23] MEDS: SODIUM CHLOR 0.9% PF (SALINE LOCK) 10ML VIAL/SYR IV SCH ×3 (05:54→21:31)
[2021-11-23] MEDS: BRIMONIDINE 0.2% OPTH Soln 5ml EACHEYE SCH ×2 (06:27→18:55)
[2021-11-23] MEDS: CALCIUM ACETATE 667 MG CAP PO SCH ×5 (06:34→21:37)
[2021-11-23] MEDS: Pro-Stat SF 30ml Vanilla PO SCH ×2 (08:00→18:00)
[2021-11-23] MEDS: Nepro With Carbsteady ButterPecan 8oz Carton PO SCH ×2 (08:00→18:00)
[2021-11-23 08:30] VITALS: BP 90/56
[2021-11-23] MEDS: amLODIPine BESYLATE 5 MG TAB PO SCH (10:00)
[2021-11-23] MEDS: CARVEDILOL 3.125 MG TAB PO SCH ×2 (10:00→21:32)
[2021-11-23] MEDS: CALCITRIOL 0.25 MCG CAP PO SCH (10:33)
[2021-11-23] MEDS: GABAPENTIN 100 MG CAP PO SCH (10:33)
[2021-11-23] MEDS: PANTOPRAZOLE 40 MG/10 ML VIAL INJ IV SCH ×2 (10:34→21:32)
[2021-11-23 12:00] VITALS: BP 144/67
[2021-11-23 16:00] VITALS: BP 92/57
[2021-11-23] MEDS: LATANOPROST 0.005 % OPTH(EYE) SOL 2.5ML EACHEYE SCH (18:55)
[2021-11-23 22:00] VITALS: BP 91/58
[2021-11-24] MEDS ORDERED: SODIUM CHL 0.9% 1000 ML BAG XX ONE (07:00)
[2021-11-24] MEDS ORDERED: EPOETIN ALFA-EPBX 10,000 UNIT/1ML VIAL SC ONE (21:00)
== END 2021-11-23 23:03 | DRG 871 ==
LOC: EDBD 13:36 → ER 13:36 → TELE 18:27 → TELE-WESTW 22:30 → TELE 11-11 10:42 → TELE-WESTW 11-11 10:48
PROVIDERS: ADMIT Nurse Practitioner; ATTEND Nurse Practitioner
PROC: 30233N1 Transfusion of Nonautologous Red Blood Cells into Peripheral Vein, Percutaneous Approach (ICD-10-PCS; 2021-11-10)
PROC: 2Y41X5Z Packing of Nasal Region using Packing Material (ICD-10-PCS; 2021-11-10)
PROC: 5A1D70Z Performance of Urinary Filtration, Intermittent, Less than 6 Hours Per Day (ICD-10-PCS; 2021-11-12)
PROC: 30233N1 Transfusion of Nonautologous Red Blood Cells into Peripheral Vein, Percutaneous Approach (ICD-10-PCS; 2021-11-13)
PROC: 5A1D70Z Performance of Urinary Filtration, Intermittent, Less than 6 Hours Per Day (ICD-10-PCS; 2021-11-15)
PROC: 30233N1 Transfusion of Nonautologous Red Blood Cells into Peripheral Vein, Percutaneous Approach (ICD-10-PCS; 2021-11-15)
PROC: 4A023N7 Measurement of Cardiac Sampling and Pressure, Left Heart, Percutaneous Approach (ICD-10-PCS; principal; 2021-11-16)
PROC: B211YZZ Fluoroscopy of Multiple Coronary Arteries using Other Contrast (ICD-10-PCS; 2021-11-16)
PROC: B215YZZ Fluoroscopy of Left Heart using Other Contrast (ICD-10-PCS; 2021-11-16)
PROC: 5A1D70Z Performance of Urinary Filtration, Intermittent, Less than 6 Hours Per Day (ICD-10-PCS; 2021-11-17)
PROC: 0DJ08ZZ Inspection of Upper Intestinal Tract, Via Natural or Artificial Opening Endoscopic (ICD-10-PCS; 2021-11-18)
PROC: 5A1D70Z Performance of Urinary Filtration, Intermittent, Less than 6 Hours Per Day (ICD-10-PCS; 2021-11-19)
PROC: 5A1D70Z Performance of Urinary Filtration, Intermittent, Less than 6 Hours Per Day (ICD-10-PCS; 2021-11-22)
DX: A41.9 Sepsis, unspecified organism (principal); N18.6 End stage renal disease; I50.20 Unspecified systolic (congestive) heart failure; E87.1 Hypo-osmolality and hyponatremia; I13.2 Hypertensive heart and chronic kidney disease with heart failure and with stage 5 chronic kidney disease, or end stage renal disease; I42.8 Other cardiomyopathies; I47.2 Ventricular tachycardia; K62.5 Hemorrhage of anus and rectum; L08.9 Local infection of the skin and subcutaneous tissue, unspecified; D63.1 Anemia in chronic kidney disease; K29.70 Gastritis, unspecified, without bleeding; K29.80 Duodenitis without bleeding; K29.90 Gastroduodenitis, unspecified, without bleeding; E11.22 Type 2 diabetes mellitus with diabetic chronic kidney disease; E11.51 Type 2 diabetes mellitus with diabetic peripheral angiopathy without gangrene; E21.2 Other hyperparathyroidism; E78.5 Hyperlipidemia, unspecified; F17.210 Nicotine dependence, cigarettes, uncomplicated; F32.A Depression, unspecified; F41.9 Anxiety disorder, unspecified; J44.9 Chronic obstructive pulmonary disease, unspecified; K21.9 Gastro-esophageal reflux disease without esophagitis; M19.90 Unspecified osteoarthritis, unspecified site; R04.0 Epistaxis; G62.9 Polyneuropathy, unspecified; Z20.822 Contact with and (suspected) exposure to COVID-19; Z53.20 Procedure and treatment not carried out because of patient's decision for unspecified reasons; Z79.899 Other long term (current) drug therapy; Z89.511 Acquired absence of right leg below knee; Z91.19 Patient's noncompliance with other medical treatment and regimen; Z99.2 Dependence on renal dialysis
CPT/HCPCS: 36415; 43235; 71045; 80048; 80053; 80061; 82270; 82962; 83615; 85014; 85018; 85025; 85610; 85730; 86850; 86870; 86900; 86901; 86920; 87040; 87081; 87340; 90935; 93306; 93458; 96365; 99152; 99153; C9113; G0378; J0696; J1642; J2001; J2250; P9047; Q9967

== ENCOUNTER 2021-12-13 10:51 | Inpatient (IN) | payer MEDICARE, MEDICAID ==
[~2021-12-13] VITALS: Ht 175.3 cm; Wt 90.3 kg
[2021-12-13] VITALS (10 sets, daily range): BP systolic 106–128; BP diastolic 62–81
[~2021-12-13 10:51] MED LIST changes: +ACET-1156 PO; +ATO40T PO; +B-COTAB10 OR; +BISA10SU45 RE; +CARV6.2551 PO; -DORZ2SOL18 EACHEYE; +HYDR-4902 PO; -IBUP600T27 PO; +MAGNSUS48 PO; -SEVE800T8 PO; -[UNRECOGNIZED DRUG - CODE] PO
[2021-12-13] MEDS ORDERED: dilTIAZem 25 MG/5 ML VIAL IV ONE (11:15)
[2021-12-13] MEDS ORDERED: dilTIAZem 125mg/125ml BAG KIT 125 ML IV ONE (11:30)
[2021-12-13 11:36] LABS: Albumin 2.7 g/dL (3.4-5.0); Calcium 8.2 mg/dL (8.5-10.1)
[2021-12-13 11:39] LABS: BUN/Creatinine Ratio 5.2; Bilirubin, Total 0.5 mg/dL (0.2-1.0)
[2021-12-13 11:54] LABS: Basophils # (auto) 0.1 10 ^3/uL (0-0.2)
[2021-12-13 11:57] LABS: Basophils % (auto) 0.9 % (0.0-2.0); Eosinophils # (auto) 0.4 10 ^3/uL (0-0.8); Eosinophils % (auto) 3.2 % (0.0-7.0); Hematocrit 20.6 % (41.0-53.0); Lymphocytes # (auto) 1.2 10 ^3/uL (0.4-5.4); Lymphocytes % (auto) 8.9 % (10.0-50.0); Mean Corpuscular Hemoglobin 23.4 pg (28.0-32.0); Monocytes % (auto) 7.5 % (0.0-12.0); Neutrophils # (auto) 10.8 10 ^3/uL (1.6-8.6); Neutrophils % (auto) 79.5 % (37.0-80.0); Red Blood Cells 2.91 10^6/uL (4.5-5.90); White Blood Cell 13.5 10^3/uL (4.4-10.8)
[2021-12-13 12:03] LABS: Red Cell Distribution Width 23.5 % (11.8-14.3)
[2021-12-13 12:06] LABS: Hemoglobin 6.8 g/dL (13.5-17.5)
[2021-12-13 12:12] LABS: INR 1.21 (0.9-1.15); Partial Thromboplastin Time 33.7 sec (23.6-33.0)
[2021-12-13] MEDS ORDERED: ONDANSETRON HCL 4 MG/2 ML VIAL IV PRN (13:00)
[2021-12-13] MEDS ORDERED: BRIMONIDINE 0.2% OPTH Soln 5ml EACHEYE SCH (13:00)
[2021-12-13] MEDS ORDERED: MORPHINE SULFATE INJ 2 MG/ml SYRG IV PRN (13:00)
[2021-12-13] MEDS ORDERED: NITROGLYCERIN 0.4 MG SL TAB SL PRN (13:00)
[2021-12-13] MEDS ORDERED: DOCUSATE SOD 100 MG CAP PO PRN (13:00)
[2021-12-13] MEDS ORDERED: PIPERACILLIN TAZOB 2.25 GM IV SCH (14:00)
[2021-12-13] MEDS ORDERED: PIPERACILLIN-TAZOB 3.375GM 100 ML IV SCH (14:00)
[2021-12-13] MEDS: PIPERACILLIN-TAZOB 2.25GM 50 ML IV SCH (16:02)
[2021-12-13] MEDS: CALCIUM ACETATE 667 MG CAP PO SCH (16:05)
[2021-12-13] MEDS: LATANOPROST 0.005 % OPTH(EYE) SOL 2.5ML EACHEYE SCH (17:02)
[2021-12-13] MEDS ORDERED: PATIENTS OWN MEDICATION (Atorvastatin Calcium (Lipitor) 1 TAB) PO SCH (18:00)
[2021-12-13] MEDS: HYDROcodone-ACET 5/325MG TAB PO PRN (19:35)
[2021-12-13] MEDS: BRIMONIDINE 0.2% OPTH Soln 5ml EACHEYE SCH (21:08)
[2021-12-13] MEDS: ATORVASTATIN 20 MG TAB PO SCH (21:09)
[2021-12-13] MEDS: GABAPENTIN 100 MG CAP PO SCH (21:09)
[2021-12-13] MEDS: CINACALCET HYDROCHLORIDE 30 MG TAB PO SCH (21:09)
[2021-12-14] MEDS: PIPERACILLIN-TAZOB 2.25GM 50 ML IV SCH ×3 (03:05→21:27)
[2021-12-14 05:00] VITALS: BP 121/73
[2021-12-14] MEDS: HYDROcodone-ACET 5/325MG TAB PO PRN ×2 (06:48→12:06)
[2021-12-14] MEDS: CALCIUM ACETATE 667 MG CAP PO SCH ×3 (06:48→17:09)
[2021-12-14] MEDS ORDERED: SODIUM CHL 0.9% 1000 ML BAG XX ONE (07:00)
[2021-12-14 08:57] VITALS: BP 132/67
[2021-12-14] MEDS ORDERED: PATIENTS OWN MEDICATION (Carvedilol 6.25 MG) PO SCH (10:00)
[2021-12-14] MEDS ORDERED: PATIENTS OWN MEDICATION (B-Complex W/ C & Folic Acid (Nephro-Vite) 1 TAB) OR SCH (10:00)
[2021-12-14] MEDS: B-COMPLEX W/ C & FOLIC ACID(NEPHROVITE TAB) PO SCH (10:15)
[2021-12-14] MEDS: CARVEDILOL 3.125 MG TAB PO SCH (10:17)
[2021-12-14] MEDS: BRIMONIDINE 0.2% OPTH Soln 5ml EACHEYE SCH ×2 (10:22→21:26)
[2021-12-14] MEDS: GABAPENTIN 100 MG CAP PO SCH ×2 (10:23→21:27)
[2021-12-14] MEDS ORDERED: VANCOMYCIN PER PHARMACY 0 MG IV SCH (16:15)
[2021-12-14] MEDS ORDERED: VANCOMYCIN 1GM/250ML 250 ML IV ONE (17:00)
[2021-12-14] MEDS: LATANOPROST 0.005 % OPTH(EYE) SOL 2.5ML EACHEYE SCH (17:09)
[2021-12-14 17:27] VITALS: BP 107/62
[2021-12-14] MEDS ORDERED: EPOETIN ALFA-EPBX 10,000 UNIT/1ML VIAL SC ONE (21:00)
[2021-12-14] MEDS: CINACALCET HYDROCHLORIDE 30 MG TAB PO SCH (21:27)
[2021-12-14] MEDS: ATORVASTATIN 20 MG TAB PO SCH (21:27)
[2021-12-14 22:00] VITALS: BP 137/95
[2021-12-15 05:00] VITALS: BP 124/72
[2021-12-15 05:54] LABS: Basophils # (auto) 0.1 10 ^3/uL (0-0.2); Eosinophils # (auto) 0.4 10 ^3/uL (0-0.8); Hematocrit 19.5 % (41.0-53.0); Red Blood Cells 2.72 10^6/uL (4.5-5.90)
[2021-12-15 05:56] LABS: Eosinophils % (auto) 4.6 % (0.0-7.0); Lymphocytes # (auto) 1.1 10 ^3/uL (0.4-5.4); Lymphocytes % (auto) 11.6 % (10.0-50.0); Mean Corpuscular Hemoglobin 24.4 pg (28.0-32.0); Mean Corpuscular Volume 71.7 fL (80.0-100.0); Monocytes # (auto) 0.7 10 ^3/uL (0-1.3); Monocytes % (auto) 7.6 % (0.0-12.0); Neutrophils # (auto) 7.2 10 ^3/uL (1.6-8.6); Neutrophils % (auto) 75.2 % (37.0-80.0); White Blood Cell 9.6 10^3/uL (4.4-10.8)
[2021-12-15 06:07] LABS: Red Cell Distribution Width 22.3 % (11.8-14.3)
[2021-12-15 06:12] LABS: Hemoglobin 6.6 g/dL (13.5-17.5)
[2021-12-15 06:13] LABS: Potassium 4.7 mmol/L (3.5-5.1)
[2021-12-15 06:18] LABS: Albumin 2.4 g/dL (3.4-5.0); BUN/Creatinine Ratio 6.2; Calcium 8.5 mg/dL (8.5-10.1)
[2021-12-15 06:21] LABS: Bilirubin, Total 0.6 mg/dL (0.2-1.0); Total Protein 8.3 g/dL (6.4-8.2)
[2021-12-15] MEDS: PIPERACILLIN-TAZOB 2.25GM 50 ML IV SCH ×3 (06:37→21:26)
[2021-12-15] MEDS: CALCIUM ACETATE 667 MG CAP PO SCH ×3 (06:38→17:47)
[2021-12-15 08:55] VITALS: BP 138/83
[2021-12-15] MEDS: HYDROcodone-ACET 5/325MG TAB PO PRN ×2 (08:55→19:02)
[2021-12-15] MEDS: GABAPENTIN 100 MG CAP PO SCH ×2 (09:57→21:26)
[2021-12-15] MEDS: B-COMPLEX W/ C & FOLIC ACID(NEPHROVITE TAB) PO SCH (09:57)
[2021-12-15] MEDS: BRIMONIDINE 0.2% OPTH Soln 5ml EACHEYE SCH ×2 (09:58→21:25)
[2021-12-15] MEDS: CARVEDILOL 3.125 MG TAB PO SCH (09:58)
[2021-12-15 12:55] VITALS: BP 112/64
[2021-12-15 17:02] VITALS: BP 101/64
[2021-12-15 17:04] VITALS: BP 122/88
[2021-12-15] MEDS: LATANOPROST 0.005 % OPTH(EYE) SOL 2.5ML EACHEYE SCH (17:47)
[2021-12-15] MEDS: ATORVASTATIN 20 MG TAB PO SCH (21:26)
[2021-12-15] MEDS: CINACALCET HYDROCHLORIDE 30 MG TAB PO SCH (21:26)
[2021-12-15 22:00] VITALS: BP 106/75
[2021-12-16] VITALS (9 sets, daily range): BP systolic 100–129; BP diastolic 55–82
[2021-12-16] MEDS: PIPERACILLIN-TAZOB 2.25GM 50 ML IV SCH ×3 (05:33→22:02)
[2021-12-16] MEDS: CALCIUM ACETATE 667 MG CAP PO SCH ×3 (06:00→17:10)
[2021-12-16] MEDS ORDERED: SODIUM CHL 0.9% 1000 ML BAG XX ONE (07:00)
[2021-12-16] MEDS: GABAPENTIN 100 MG CAP PO SCH ×2 (10:21→22:05)
[2021-12-16] MEDS: B-COMPLEX W/ C & FOLIC ACID(NEPHROVITE TAB) PO SCH (10:21)
[2021-12-16] MEDS: CARVEDILOL 3.125 MG TAB PO SCH (10:28)
[2021-12-16] MEDS: HYDROcodone-ACET 5/325MG TAB PO PRN ×2 (10:30→22:38)
[2021-12-16] MEDS: BRIMONIDINE 0.2% OPTH Soln 5ml EACHEYE SCH ×2 (10:31→22:04)
[2021-12-16] MEDS ORDERED: VANCOMYCIN 1GM/250ML 250 ML IV ONE ×3 (12:00→17:00)
[2021-12-16] MEDS: LATANOPROST 0.005 % OPTH(EYE) SOL 2.5ML EACHEYE SCH (17:10)
[2021-12-16 20:16] LABS: Basophils # (auto) 0.1 10 ^3/uL (0-0.2); Red Cell Distribution Width 22.1 % (11.8-14.3); White Blood Cell 7.5 10^3/uL (4.4-10.8)
[2021-12-16 20:18] LABS: Basophils % (auto) 1.7 % (0.0-2.0); Eosinophils # (auto) 0.6 10 ^3/uL (0-0.8); Eosinophils % (auto) 7.7 % (0.0-7.0); Hematocrit 22.5 % (41.0-53.0); Hemoglobin 7.5 g/dL (13.5-17.5); Lymphocytes # (auto) 0.8 10 ^3/uL (0.4-5.4); Lymphocytes % (auto) 11.1 % (10.0-50.0); Mean Corpuscular Hemoglobin 24.7 pg (28.0-32.0); Mean Corpuscular Hgb Conc. 33.6 g/dL (32.0-36.0); Monocytes # (auto) 0.9 10 ^3/uL (0-1.3); Monocytes % (auto) 11.8 % (0.0-12.0); Neutrophils % (auto) 67.7 % (37.0-80.0); Red Blood Cells 3.06 10^6/uL (4.5-5.90)
[2021-12-16 20:19] LABS: Alanine Aminotransferase 14 U/L (16-61); Albumin 2.2 g/dL (3.4-5.0); Anion Gap 12 (5-15); Aspartate Aminotransferase 18 U/L (15-37); BUN/Creatinine Ratio 5.4; Blood Urea Nitrogen 30 mg/dL (7-18); Calcium 7.6 mg/dL (8.5-10.1); Carbon Dioxide 28 mmol/L (21-32); Chloride 99 mmol/L (98-107); GFR African American 13 mL/min; GFR Non-African American 11 mL/min; Glucose 118 mg/dL (74-106); Sodium 139 mmol/L (136-145)
[2021-12-16 20:22] LABS: Alkaline Phosphatase 82 U/L (45-117); Bilirubin, Total 0.8 mg/dL (0.2-1.0); Total Protein 8.1 g/dL (6.4-8.2)
[2021-12-16 20:48] LABS: Mean Corpuscular Volume 73.4 fL (80.0-100.0)
[2021-12-16] MEDS ORDERED: EPOETIN ALFA-EPBX 10,000 UNIT/1ML VIAL SC ONE (21:00)
[2021-12-16] MEDS: DAKINS HALF STR 0.25% (NaHypochlorite) 473 ML TOPICAL SOL TOP SCH (22:03)
[2021-12-16] MEDS: ATORVASTATIN 20 MG TAB PO SCH (22:04)
[2021-12-16] MEDS: CINACALCET HYDROCHLORIDE 30 MG TAB PO SCH (22:05)
[2021-12-17 05:00] VITALS: BP 106/56
[2021-12-17] MEDS: HYDROcodone-ACET 5/325MG TAB PO PRN ×2 (05:27→20:57)
[2021-12-17] MEDS: PIPERACILLIN-TAZOB 2.25GM 50 ML IV SCH ×3 (05:49→21:56)
[2021-12-17] MEDS: CALCIUM ACETATE 667 MG CAP PO SCH ×3 (06:19→17:51)
[2021-12-17 08:00] VITALS: BP 120/62
[2021-12-17 09:00] VITALS: BP 113/59
[2021-12-17 09:37] LABS: % Iron Saturation 21.4 % (20-55)
[2021-12-17] MEDS: CARVEDILOL 3.125 MG TAB PO SCH (10:20)
[2021-12-17] MEDS: B-COMPLEX W/ C & FOLIC ACID(NEPHROVITE TAB) PO SCH (10:21)
[2021-12-17] MEDS: GABAPENTIN 100 MG CAP PO SCH ×2 (10:21→21:56)
[2021-12-17] MEDS: DAKINS HALF STR 0.25% (NaHypochlorite) 473 ML TOPICAL SOL TOP SCH (10:21)
[2021-12-17] MEDS: BRIMONIDINE 0.2% OPTH Soln 5ml EACHEYE SCH ×2 (10:30→21:55)
[2021-12-17 13:00] VITALS: BP 120/62
[2021-12-17 17:00] VITALS: BP 131/71
[2021-12-17] MEDS: LATANOPROST 0.005 % OPTH(EYE) SOL 2.5ML EACHEYE SCH (17:51)
[2021-12-17] MEDS: CINACALCET HYDROCHLORIDE 30 MG TAB PO SCH (21:56)
[2021-12-17] MEDS: ATORVASTATIN 20 MG TAB PO SCH (21:56)
[2021-12-17 22:00] VITALS: BP 119/61
[2021-12-18 05:00] VITALS: BP 113/66
[2021-12-18] MEDS: HYDROcodone-ACET 5/325MG TAB PO PRN ×3 (05:05→21:55)
[2021-12-18] MEDS: CALCIUM ACETATE 667 MG CAP PO SCH ×3 (07:03→18:04)
[2021-12-18] MEDS: PIPERACILLIN-TAZOB 2.25GM 50 ML IV SCH ×3 (07:03→21:54)
[2021-12-18 08:00] VITALS: BP 111/65
[2021-12-18 09:00] VITALS: BP 111/65
[2021-12-18] MEDS: CARVEDILOL 3.125 MG TAB PO SCH (10:17)
[2021-12-18] MEDS: BRIMONIDINE 0.2% OPTH Soln 5ml EACHEYE SCH ×2 (10:17→21:54)
[2021-12-18] MEDS: DAKINS HALF STR 0.25% (NaHypochlorite) 473 ML TOPICAL SOL TOP SCH (10:18)
[2021-12-18] MEDS: GABAPENTIN 100 MG CAP PO SCH ×2 (10:18→21:55)
[2021-12-18] MEDS: B-COMPLEX W/ C & FOLIC ACID(NEPHROVITE TAB) PO SCH (10:18)
[2021-12-18] MEDS: PANTOPRAZOLE 40 MG TAB PO SCH (10:50)
[2021-12-18 13:00] VITALS: BP 103/51
[2021-12-18 17:00] VITALS: BP 104/71
[2021-12-18] MEDS: LATANOPROST 0.005 % OPTH(EYE) SOL 2.5ML EACHEYE SCH (18:04)
[2021-12-18] MEDS: ATORVASTATIN 20 MG TAB PO SCH (21:55)
[2021-12-18] MEDS: CINACALCET HYDROCHLORIDE 30 MG TAB PO SCH (21:58)
[2021-12-18 22:00] VITALS: BP 135/71
[2021-12-19] VITALS (9 sets, daily range): BP systolic 110–137; BP diastolic 61–81
[2021-12-19] MEDS: HYDROcodone-ACET 5/325MG TAB PO PRN ×3 (06:33→23:57)
[2021-12-19] MEDS: PIPERACILLIN-TAZOB 2.25GM 50 ML IV SCH ×3 (06:58→21:24)
[2021-12-19] MEDS: CALCIUM ACETATE 667 MG CAP PO SCH ×3 (06:59→17:01)
[2021-12-19] MEDS ORDERED: SODIUM CHL 0.9% 1000 ML BAG XX ONE (07:00)
[2021-12-19 08:35] LABS: Basophils # (auto) 0.1 10 ^3/uL (0-0.2); Lymphocytes # (auto) 1.1 10 ^3/uL (0.4-5.4); Neutrophils % (auto) 65.1 % (37.0-80.0)
[2021-12-19 08:38] LABS: Basophils % (auto) 1.9 % (0.0-2.0); Eosinophils # (auto) 0.4 10 ^3/uL (0-0.8); Eosinophils % (auto) 5.9 % (0.0-7.0); Hematocrit 20.7 % (41.0-53.0); Hemoglobin 7.1 g/dL (13.5-17.5); Lymphocytes % (auto) 15.5 % (10.0-50.0); Mean Corpuscular Hgb Conc. 34.2 g/dL (32.0-36.0); Monocytes # (auto) 0.8 10 ^3/uL (0-1.3); Monocytes % (auto) 11.6 % (0.0-12.0); Neutrophils # (auto) 4.7 10 ^3/uL (1.6-8.6); Red Blood Cells 2.84 10^6/uL (4.5-5.90); White Blood Cell 7.2 10^3/uL (4.4-10.8)
[2021-12-19 08:41] LABS: Potassium 5.2 mmol/L (3.5-5.1)
[2021-12-19 08:42] LABS: Calcium 7.2 mg/dL (8.5-10.1)
[2021-12-19 08:52] LABS: Red Cell Distribution Width 22.3 % (11.8-14.3)
[2021-12-19] MEDS: B-COMPLEX W/ C & FOLIC ACID(NEPHROVITE TAB) PO SCH (09:20)
[2021-12-19] MEDS: CARVEDILOL 3.125 MG TAB PO SCH (09:20)
[2021-12-19] MEDS: GABAPENTIN 100 MG CAP PO SCH ×2 (09:20→21:27)
[2021-12-19] MEDS: PANTOPRAZOLE 40 MG TAB PO SCH (09:20)
[2021-12-19] MEDS: BRIMONIDINE 0.2% OPTH Soln 5ml EACHEYE SCH ×2 (11:06→21:23)
[2021-12-19] MEDS: DAKINS HALF STR 0.25% (NaHypochlorite) 473 ML TOPICAL SOL TOP SCH (11:23)
[2021-12-19] MEDS ORDERED: VANCOMYCIN 500 MG in D5W 5% 100 ML IV ONE (16:30)
[2021-12-19] MEDS: LATANOPROST 0.005 % OPTH(EYE) SOL 2.5ML EACHEYE SCH (18:00)
[2021-12-19] MEDS ORDERED: EPOETIN ALFA-EPBX 4,000 UNIT/ML VIAL SC ONE (21:00)
[2021-12-19] MEDS: ATORVASTATIN 20 MG TAB PO SCH (21:26)
[2021-12-19] MEDS: CINACALCET HYDROCHLORIDE 30 MG TAB PO SCH (21:28)
[2021-12-20 05:00] VITALS: BP 114/59
[2021-12-20] MEDS: PIPERACILLIN-TAZOB 2.25GM 50 ML IV SCH ×3 (06:14→21:48)
[2021-12-20] MEDS: CALCIUM ACETATE 667 MG CAP PO SCH ×3 (07:00→17:31)
[2021-12-20] MEDS ORDERED: LIDOCAINE VISCOUS 2% 15ML UD ONE (08:12)
[2021-12-20] MEDS ORDERED: MIDAZOLAM HCL 5 MG/ML-1ML VIAL ONE (08:13)
[2021-12-20] MEDS ORDERED: fentaNYL CITRATE 100 MCG/2 ML VL ONE (08:13)
[2021-12-20] MEDS ORDERED: diphenhdrAMINE HCL 50 MG/1 ML VL ONE (08:13)
[2021-12-20] MEDS: PANTOPRAZOLE 40 MG TAB PO SCH (10:12)
[2021-12-20] MEDS: B-COMPLEX W/ C & FOLIC ACID(NEPHROVITE TAB) PO SCH (10:12)
[2021-12-20] MEDS: BRIMONIDINE 0.2% OPTH Soln 5ml EACHEYE SCH ×2 (10:13→21:48)
[2021-12-20] MEDS: GABAPENTIN 100 MG CAP PO SCH ×2 (10:13→21:49)
[2021-12-20] MEDS: CARVEDILOL 3.125 MG TAB PO SCH (10:13)
[2021-12-20] MEDS: DAKINS HALF STR 0.25% (NaHypochlorite) 473 ML TOPICAL SOL TOP SCH (10:14)
[2021-12-20 17:00] VITALS: BP 103/64
[2021-12-20] MEDS: LATANOPROST 0.005 % OPTH(EYE) SOL 2.5ML EACHEYE SCH (17:31)
[2021-12-20] MEDS: ATORVASTATIN 20 MG TAB PO SCH (21:48)
[2021-12-20] MEDS: CINACALCET HYDROCHLORIDE 30 MG TAB PO SCH (21:50)
[2021-12-20 22:00] VITALS: BP 123/70
[2021-12-21 05:00] VITALS: BP 122/77
[2021-12-21] MEDS: PIPERACILLIN-TAZOB 2.25GM 50 ML IV SCH ×2 (05:43→16:50)
[2021-12-21] MEDS: CALCIUM ACETATE 667 MG CAP PO SCH ×3 (06:53→16:50)
[2021-12-21] MEDS ORDERED: SODIUM CHL 0.9% 1000 ML BAG XX ONE (07:00)
[2021-12-21] MEDS ORDERED: IOHEXOL 350 MG/ML 100ML IJ ONE (07:03)
[2021-12-21] MEDS: GABAPENTIN 100 MG CAP PO SCH ×2 (10:00→20:50)
[2021-12-21] MEDS: B-COMPLEX W/ C & FOLIC ACID(NEPHROVITE TAB) PO SCH (10:00)
[2021-12-21] MEDS: CARVEDILOL 3.125 MG TAB PO SCH (10:00)
[2021-12-21] MEDS: PANTOPRAZOLE 40 MG TAB PO SCH (10:00)
[2021-12-21] MEDS ORDERED: LIDOCAINE VISCOUS 2% 15ML UD ONE (12:09)
[2021-12-21] MEDS ORDERED: MIDAZOLAM HCL 5 MG/ML-1ML VIAL ONE (12:09)
[2021-12-21] MEDS ORDERED: fentaNYL CITRATE 100 MCG/2 ML VL ONE (12:09)
[2021-12-21] MEDS: BRIMONIDINE 0.2% OPTH Soln 5ml EACHEYE SCH ×2 (12:09→21:15)
[2021-12-21] MEDS ORDERED: diphenhdrAMINE HCL 50 MG/1 ML VL ONE (12:09)
[2021-12-21] MEDS ORDERED: SODIUM CHLORIDE LOCK 10 ML ONE (12:09)
[2021-12-21] MEDS: DAKINS HALF STR 0.25% (NaHypochlorite) 473 ML TOPICAL SOL TOP SCH (12:10)
[2021-12-21] MEDS: HYDROcodone-ACET 5/325MG TAB PO PRN ×2 (12:39→21:16)
[2021-12-21 13:00] VITALS: BP 113/56
[2021-12-21 13:24] LABS: Basophils # (auto) 0.1 10 ^3/uL (0-0.2); Basophils % (auto) 1.5 % (0.0-2.0); Eosinophils # (auto) 0.3 10 ^3/uL (0-0.8); Eosinophils % (auto) 4.5 % (0.0-7.0); Hematocrit 21.7 % (41.0-53.0); Lymphocytes # (auto) 1.2 10 ^3/uL (0.4-5.4); Lymphocytes % (auto) 15.6 % (10.0-50.0); Mean Corpuscular Hgb Conc. 33.6 g/dL (32.0-36.0); Monocytes # (auto) 0.8 10 ^3/uL (0-1.3); Monocytes % (auto) 10.9 % (0.0-12.0); Neutrophils # (auto) 5.3 10 ^3/uL (1.6-8.6); Neutrophils % (auto) 67.5 % (37.0-80.0); Red Blood Cells 2.92 10^6/uL (4.5-5.90); White Blood Cell 7.8 10^3/uL (4.4-10.8)
[2021-12-21 13:25] LABS: Red Cell Distribution Width 22.8 % (11.8-14.3)
[2021-12-21 13:26] LABS: Hemoglobin 7.3 g/dL (13.5-17.5); Mean Corpuscular Hemoglobin 24.9 pg (28.0-32.0); Mean Corpuscular Volume 74.2 fL (80.0-100.0)
[2021-12-21 13:32] LABS: BUN/Creatinine Ratio 6.6; Calcium 8.4 mg/dL (8.5-10.1); Potassium 4.4 mmol/L (3.5-5.1)
[2021-12-21 17:00] VITALS: BP 123/77
[2021-12-21] MEDS ORDERED: VANCOMYCIN 1GM/250ML 250 ML IV ONE (18:00)
[2021-12-21] MEDS: LATANOPROST 0.005 % OPTH(EYE) SOL 2.5ML EACHEYE SCH (18:44)
[2021-12-21] MEDS: ATORVASTATIN 20 MG TAB PO SCH (20:50)
[2021-12-21] MEDS: CINACALCET HYDROCHLORIDE 30 MG TAB PO SCH (20:55)
[2021-12-21] MEDS ORDERED: EPOETIN ALFA-EPBX 10,000 UNIT/1ML VIAL SC ONE (21:00)
[2021-12-21 22:00] VITALS: BP 109/67
[2021-12-22] MEDS: PIPERACILLIN-TAZOB 2.25GM 50 ML IV SCH ×4 (01:08→20:45)
[2021-12-22 05:00] VITALS: BP 125/75
[2021-12-22] MEDS: CALCIUM ACETATE 667 MG CAP PO SCH ×3 (06:26→17:50)
[2021-12-22 08:48] VITALS: BP 119/62
[2021-12-22] MEDS: DAKINS HALF STR 0.25% (NaHypochlorite) 473 ML TOPICAL SOL TOP SCH (10:00)
[2021-12-22] MEDS: BRIMONIDINE 0.2% OPTH Soln 5ml EACHEYE SCH ×3 (10:31→20:44)
[2021-12-22] MEDS: B-COMPLEX W/ C & FOLIC ACID(NEPHROVITE TAB) PO SCH (10:32)
[2021-12-22] MEDS: GABAPENTIN 100 MG CAP PO SCH ×2 (10:32→20:45)
[2021-12-22] MEDS: PANTOPRAZOLE 40 MG TAB PO SCH (10:32)
[2021-12-22] MEDS: CARVEDILOL 3.125 MG TAB PO SCH (10:33)
[2021-12-22 13:00] VITALS: BP 125/69
[2021-12-22 14:19] LABS: Eosinophils # (auto) 0.4 10 ^3/uL (0-0.8); Hemoglobin 7.4 g/dL (13.5-17.5); Nucleated Red Blood Cells % 0.1 %
[2021-12-22 14:22] LABS: Basophils # (auto) 0.2 10 ^3/uL (0-0.2); Basophils % (auto) 1.7 % (0.0-2.0); Eosinophils % (auto) 4.5 % (0.0-7.0); Hematocrit 22.7 % (41.0-53.0); Lymphocytes # (auto) 1.2 10 ^3/uL (0.4-5.4); Lymphocytes % (auto) 13.1 % (10.0-50.0); Mean Corpuscular Hemoglobin 24.7 pg (28.0-32.0); Mean Corpuscular Hgb Conc. 32.7 g/dL (32.0-36.0); Mean Corpuscular Volume 75.4 fL (80.0-100.0); Monocytes # (auto) 1.1 10 ^3/uL (0-1.3); Neutrophils # (auto) 6.2 10 ^3/uL (1.6-8.6); Neutrophils % (auto) 68.7 % (37.0-80.0); Red Blood Cells 3.01 10^6/uL (4.5-5.90); Red Cell Distribution Width 23.1 % (11.8-14.3)
[2021-12-22 14:42] LABS: BUN/Creatinine Ratio 6.6; Calcium 7.6 mg/dL (8.5-10.1)
[2021-12-22 17:00] VITALS: BP 117/65
[2021-12-22] MEDS: LATANOPROST 0.005 % OPTH(EYE) SOL 2.5ML EACHEYE SCH (17:51)
[2021-12-22] MEDS: CINACALCET HYDROCHLORIDE 30 MG TAB PO SCH (20:45)
[2021-12-22] MEDS: ATORVASTATIN 20 MG TAB PO SCH (20:45)
[2021-12-22 22:00] VITALS: BP 130/74
[2021-12-23] MEDS: PIPERACILLIN-TAZOB 2.25GM 50 ML IV SCH ×3 (06:17→22:42)
[2021-12-23] MEDS: CALCIUM ACETATE 667 MG CAP PO SCH ×3 (06:18→18:09)
[2021-12-23] MEDS ORDERED: SODIUM CHL 0.9% 1000 ML BAG XX ONE (07:00)
[2021-12-23 09:00] VITALS: BP 125/74
[2021-12-23] MEDS: CARVEDILOL 3.125 MG TAB PO SCH (10:00)
[2021-12-23] MEDS: DAKINS HALF STR 0.25% (NaHypochlorite) 473 ML TOPICAL SOL TOP SCH (10:00)
[2021-12-23] MEDS: BRIMONIDINE 0.2% OPTH Soln 5ml EACHEYE SCH ×2 (10:31→22:41)
[2021-12-23] MEDS: PANTOPRAZOLE 40 MG TAB PO SCH (10:31)
[2021-12-23] MEDS: B-COMPLEX W/ C & FOLIC ACID(NEPHROVITE TAB) PO SCH (10:31)
[2021-12-23] MEDS: GABAPENTIN 100 MG CAP PO SCH ×2 (10:31→22:42)
[2021-12-23 16:14] LABS: Basophils # (auto) 0.2 10 ^3/uL (0-0.2); Basophils % (auto) 2.2 % (0.0-2.0); Eosinophils # (auto) 0.4 10 ^3/uL (0-0.8); Eosinophils % (auto) 4.7 % (0.0-7.0); Hematocrit 21.5 % (41.0-53.0); Hemoglobin 7.3 g/dL (13.5-17.5); Lymphocytes % (auto) 10.7 % (10.0-50.0); Mean Corpuscular Hemoglobin 25.3 pg (28.0-32.0); Mean Corpuscular Volume 74.3 fL (80.0-100.0); Monocytes % (auto) 10.9 % (0.0-12.0); Neutrophils # (auto) 6.4 10 ^3/uL (1.6-8.6); Neutrophils % (auto) 71.5 % (37.0-80.0); Nucleated Red Blood Cells % 0.1 %; Red Blood Cells 2.89 10^6/uL (4.5-5.90); Red Cell Distribution Width 22.4 % (11.8-14.3)
[2021-12-23 16:31] LABS: BUN/Creatinine Ratio 6.6; Calcium 7.4 mg/dL (8.5-10.1); Potassium 4.8 mmol/L (3.5-5.1)
[2021-12-23 17:00] VITALS: BP 128/78
[2021-12-23] MEDS: LATANOPROST 0.005 % OPTH(EYE) SOL 2.5ML EACHEYE SCH (18:09)
[2021-12-23] MEDS ORDERED: VANCOMYCIN 500 MG in D5W 5% 100 ML IV ONE (21:00)
[2021-12-23] MEDS ORDERED: EPOETIN ALFA-EPBX 10,000 UNIT/1ML VIAL SC ONE (21:00)
[2021-12-23 22:00] VITALS: BP 104/56
[2021-12-23] MEDS: CINACALCET HYDROCHLORIDE 30 MG TAB PO SCH (22:42)
[2021-12-23] MEDS: ATORVASTATIN 20 MG TAB PO SCH (22:42)
[2021-12-24 05:00] VITALS: BP 121/70
[2021-12-24] MEDS: CALCIUM ACETATE 667 MG CAP PO SCH ×3 (06:13→17:08)
[2021-12-24] MEDS: PIPERACILLIN-TAZOB 2.25GM 50 ML IV SCH ×3 (06:13→21:45)
[2021-12-24] MEDS: HYDROcodone-ACET 5/325MG TAB PO PRN (06:13)
[2021-12-24 09:00] VITALS: BP 120/62
[2021-12-24] MEDS: BRIMONIDINE 0.2% OPTH Soln 5ml EACHEYE SCH ×2 (09:34→21:45)
[2021-12-24] MEDS: CARVEDILOL 3.125 MG TAB PO SCH (09:35)
[2021-12-24] MEDS: DAKINS HALF STR 0.25% (NaHypochlorite) 473 ML TOPICAL SOL TOP SCH (09:35)
[2021-12-24] MEDS: GABAPENTIN 100 MG CAP PO SCH ×2 (09:35→21:46)
[2021-12-24] MEDS: PANTOPRAZOLE 40 MG TAB PO SCH (09:35)
[2021-12-24] MEDS: B-COMPLEX W/ C & FOLIC ACID(NEPHROVITE TAB) PO SCH (09:35)
[2021-12-24 13:00] VITALS: BP 110/64
[2021-12-24 13:15] LABS: Basophils # (auto) 0.2 10 ^3/uL (0-0.2); Hemoglobin 7.6 g/dL (13.5-17.5); Mean Corpuscular Hemoglobin 24.8 pg (28.0-32.0); Neutrophils # (auto) 4.9 10 ^3/uL (1.6-8.6); Nucleated Red Blood Cells % 0.1 %
[2021-12-24 13:16] LABS: Basophils % (auto) 2.3 % (0.0-2.0); Eosinophils # (auto) 0.4 10 ^3/uL (0-0.8); Eosinophils % (auto) 5.7 % (0.0-7.0); Hematocrit 22.8 % (41.0-53.0); Lymphocytes % (auto) 12.9 % (10.0-50.0); Mean Corpuscular Hgb Conc. 33.3 g/dL (32.0-36.0); Mean Corpuscular Volume 74.4 fL (80.0-100.0); Monocytes # (auto) 1.1 10 ^3/uL (0-1.3); Monocytes % (auto) 14.7 % (0.0-12.0); Neutrophils % (auto) 64.4 % (37.0-80.0); Red Blood Cells 3.07 10^6/uL (4.5-5.90); Red Cell Distribution Width 23.1 % (11.8-14.3); White Blood Cell 7.6 10^3/uL (4.4-10.8)
[2021-12-24 13:35] LABS: BUN/Creatinine Ratio 6.2; Calcium 7.5 mg/dL (8.5-10.1); Potassium 4.3 mmol/L (3.5-5.1)
[2021-12-24 17:00] VITALS: BP 115/65
[2021-12-24] MEDS: LATANOPROST 0.005 % OPTH(EYE) SOL 2.5ML EACHEYE SCH (18:05)
[2021-12-24] MEDS: CINACALCET HYDROCHLORIDE 30 MG TAB PO SCH (21:46)
[2021-12-24] MEDS: ATORVASTATIN 20 MG TAB PO SCH (21:46)
[2021-12-24 21:50] VITALS: BP 109/58
[2021-12-25 05:14] VITALS: BP 112/69
[2021-12-25] MEDS: PIPERACILLIN-TAZOB 2.25GM 50 ML IV SCH ×4 (06:37→21:53)
[2021-12-25] MEDS: CALCIUM ACETATE 667 MG CAP PO SCH ×3 (06:38→16:48)
[2021-12-25 08:50] VITALS: BP 126/67
[2021-12-25] MEDS: B-COMPLEX W/ C & FOLIC ACID(NEPHROVITE TAB) PO SCH (10:01)
[2021-12-25] MEDS: BRIMONIDINE 0.2% OPTH Soln 5ml EACHEYE SCH ×2 (10:01→21:22)
[2021-12-25] MEDS: PANTOPRAZOLE 40 MG TAB PO SCH (10:01)
[2021-12-25] MEDS: GABAPENTIN 100 MG CAP PO SCH ×2 (10:01→21:14)
[2021-12-25] MEDS: CARVEDILOL 3.125 MG TAB PO SCH (10:02)
[2021-12-25] MEDS: DAKINS HALF STR 0.25% (NaHypochlorite) 473 ML TOPICAL SOL TOP SCH (10:55)
[2021-12-25 13:00] VITALS: BP 109/50
[2021-12-25 17:00] VITALS: BP 112/75
[2021-12-25] MEDS: LATANOPROST 0.005 % OPTH(EYE) SOL 2.5ML EACHEYE SCH (18:10)
[2021-12-25] MEDS: ATORVASTATIN 20 MG TAB PO SCH (21:13)
[2021-12-25] MEDS: CINACALCET HYDROCHLORIDE 30 MG TAB PO SCH (21:21)
[2021-12-25 22:00] VITALS: BP 113/72
[2021-12-26 05:00] VITALS: BP 130/78
[2021-12-26] MEDS: PIPERACILLIN-TAZOB 2.25GM 50 ML IV SCH ×3 (05:09→21:19)
[2021-12-26] MEDS: CALCIUM ACETATE 667 MG CAP PO SCH ×3 (06:06→17:42)
[2021-12-26] MEDS ORDERED: SODIUM CHL 0.9% 1000 ML BAG XX ONE (07:00)
[2021-12-26 08:30] VITALS: BP 121/52
[2021-12-26 09:00] VITALS: BP 121/52
[2021-12-26] MEDS: BRIMONIDINE 0.2% OPTH Soln 5ml EACHEYE SCH ×2 (10:57→21:19)
[2021-12-26] MEDS: GABAPENTIN 100 MG CAP PO SCH ×2 (10:59→21:20)
[2021-12-26] MEDS: CARVEDILOL 3.125 MG TAB PO SCH (11:00)
[2021-12-26] MEDS: PANTOPRAZOLE 40 MG TAB PO SCH (11:01)
[2021-12-26] MEDS: B-COMPLEX W/ C & FOLIC ACID(NEPHROVITE TAB) PO SCH (11:01)
[2021-12-26 13:21] VITALS: BP 109/63
[2021-12-26] MEDS: ACETAMINOPHEN 325 MG TAB PO PRN (14:14)
[2021-12-26 15:17] LABS: Calcium 7.7 mg/dL (8.5-10.1); Potassium 5.3 mmol/L (3.5-5.1)
[2021-12-26 15:19] LABS: BUN/Creatinine Ratio 6.8
[2021-12-26 15:41] LABS: Hematocrit 20.6 % (41.0-53.0); Hemoglobin 7.1 g/dL (13.5-17.5)
[2021-12-26 17:00] VITALS: BP 101/65
[2021-12-26] MEDS: LATANOPROST 0.005 % OPTH(EYE) SOL 2.5ML EACHEYE SCH (17:37)
[2021-12-26] MEDS ORDERED: EPOETIN ALFA-EPBX 10,000 UNIT/1ML VIAL SC ONE (21:00)
[2021-12-26] MEDS: ATORVASTATIN 20 MG TAB PO SCH (21:20)
[2021-12-26] MEDS: CINACALCET HYDROCHLORIDE 30 MG TAB PO SCH (21:22)
[2021-12-26] MEDS: DAKINS HALF STR 0.25% (NaHypochlorite) 473 ML TOPICAL SOL TOP SCH (21:49)
[2021-12-26 22:00] VITALS: BP 136/69
[2021-12-26] MEDS ORDERED: VANCOMYCIN 1GM/250ML 250 ML IV ONE (23:15)
[2021-12-27 05:00] VITALS: BP 116/49
[2021-12-27] MEDS: PIPERACILLIN-TAZOB 2.25GM 50 ML IV SCH ×3 (06:32→21:00)
[2021-12-27] MEDS: CALCIUM ACETATE 667 MG CAP PO SCH ×3 (06:32→17:00)
[2021-12-27 08:00] VITALS: BP_DIAS 52
[2021-12-27 09:00] VITALS: BP 128/75
[2021-12-27] MEDS: GABAPENTIN 100 MG CAP PO SCH ×2 (10:00→21:01)
[2021-12-27] MEDS: DAKINS HALF STR 0.25% (NaHypochlorite) 473 ML TOPICAL SOL TOP SCH (10:00)
[2021-12-27] MEDS: BRIMONIDINE 0.2% OPTH Soln 5ml EACHEYE SCH ×2 (10:00→21:00)
[2021-12-27] MEDS: B-COMPLEX W/ C & FOLIC ACID(NEPHROVITE TAB) PO SCH (10:00)
[2021-12-27] MEDS: CARVEDILOL 3.125 MG TAB PO SCH (10:00)
[2021-12-27] MEDS: PANTOPRAZOLE 40 MG TAB PO SCH (10:00)
[2021-12-27 13:00] VITALS: BP 112/74
[2021-12-27 17:00] VITALS: BP 98/60
[2021-12-27] MEDS: LATANOPROST 0.005 % OPTH(EYE) SOL 2.5ML EACHEYE SCH (18:00)
[2021-12-27] MEDS: ATORVASTATIN 20 MG TAB PO SCH (21:01)
[2021-12-27] MEDS: CINACALCET HYDROCHLORIDE 30 MG TAB PO SCH (21:33)
[2021-12-27 22:00] VITALS: BP 94/48
[2021-12-28] VITALS (14 sets, daily range): BP systolic 86–129; BP diastolic 36–74
[2021-12-28] MEDS: PIPERACILLIN-TAZOB 2.25GM 50 ML IV SCH ×3 (05:34→22:37)
[2021-12-28] MEDS: CALCIUM ACETATE 667 MG CAP PO SCH ×3 (06:10→17:00)
[2021-12-28] MEDS ORDERED: SODIUM CHL 0.9% 1000 ML BAG XX ONE (07:00)
[2021-12-28 09:41] LABS: Basophils # (auto) 0.1 10 ^3/uL (0-0.2); Eosinophils # (auto) 0.2 10 ^3/uL (0-0.8); Monocytes # (auto) 1.7 10 ^3/uL (0-1.3); Neutrophils # (auto) 9.3 10 ^3/uL (1.6-8.6); Red Blood Cells 2.75 10^6/uL (4.5-5.90)
[2021-12-28 09:43] LABS: Eosinophils % (auto) 1.6 % (0.0-7.0); Hematocrit 20.9 % (41.0-53.0); Lymphocytes # (auto) 0.9 10 ^3/uL (0.4-5.4); Lymphocytes % (auto) 7.1 % (10.0-50.0); Mean Corpuscular Hemoglobin 24.3 pg (28.0-32.0); Mean Corpuscular Volume 75.9 fL (80.0-100.0); Monocytes % (auto) 13.9 % (0.0-12.0); Neutrophils % (auto) 76.4 % (37.0-80.0)
[2021-12-28 09:56] LABS: INR 1.41 (0.9-1.15); Partial Thromboplastin Time 38.2 sec (23.6-33.0)
[2021-12-28] MEDS: CARVEDILOL 3.125 MG TAB PO SCH (10:00)
[2021-12-28] MEDS: PANTOPRAZOLE 40 MG TAB PO SCH (10:00)
[2021-12-28] MEDS: B-COMPLEX W/ C & FOLIC ACID(NEPHROVITE TAB) PO SCH (10:00)
[2021-12-28] MEDS: BRIMONIDINE 0.2% OPTH Soln 5ml EACHEYE SCH ×2 (10:00→21:30)
[2021-12-28] MEDS: DAKINS HALF STR 0.25% (NaHypochlorite) 473 ML TOPICAL SOL TOP SCH (10:00)
[2021-12-28] MEDS: GABAPENTIN 100 MG CAP PO SCH ×2 (10:00→21:30)
[2021-12-28 10:12] LABS: BUN/Creatinine Ratio 5.8; Calcium 7.6 mg/dL (8.5-10.1); Potassium 3.9 mmol/L (3.5-5.1)
[2021-12-28 10:15] LABS: Hemoglobin 6.7 g/dL (13.5-17.5); Red Cell Distribution Width 23.5 % (11.8-14.3); White Blood Cell 12.1 10^3/uL (4.4-10.8)
[2021-12-28] MEDS ORDERED: VANCOMYCIN 500 MG in D5W 5% 100 ML IV ONE (15:00)
[2021-12-28] MEDS: LATANOPROST 0.005 % OPTH(EYE) SOL 2.5ML EACHEYE SCH (18:00)
[2021-12-28] MEDS ORDERED: EPOETIN ALFA-EPBX 10,000 UNIT/1ML VIAL SC ONE (21:00)
[2021-12-28] MEDS: ATORVASTATIN 20 MG TAB PO SCH (21:30)
[2021-12-28] MEDS: CINACALCET HYDROCHLORIDE 30 MG TAB PO SCH (22:35)
[2021-12-29] VITALS (13 sets, daily range): BP systolic 94–114; BP diastolic 43–68
[2021-12-29] MEDS ORDERED: VANCOMYCIN 500 MG in D5W 5% 100 ML IV ONE (02:00)
[2021-12-29] MEDS: PIPERACILLIN-TAZOB 2.25GM 50 ML IV SCH ×3 (05:37→23:07)
[2021-12-29] MEDS: CALCIUM ACETATE 667 MG CAP PO SCH ×3 (06:04→18:50)
[2021-12-29] MEDS ORDERED: SODIUM CHL 0.9% 1000 ML BAG XX ONE (07:00)
[2021-12-29 08:01] LABS: Eosinophils # (auto) 0.3 10 ^3/uL (0-0.8); Hemoglobin 7.1 g/dL (13.5-17.5); Lymphocytes # (auto) 0.9 10 ^3/uL (0.4-5.4); Mean Corpuscular Hemoglobin 25.2 pg (28.0-32.0)
[2021-12-29 08:05] LABS: Basophils # (auto) 0.1 10 ^3/uL (0-0.2); Basophils % (auto) 1.1 % (0.0-2.0); Eosinophils % (auto) 2.1 % (0.0-7.0); Hematocrit 21.3 % (41.0-53.0); Lymphocytes % (auto) 6.4 % (10.0-50.0); Mean Corpuscular Hgb Conc. 33.2 g/dL (32.0-36.0); Mean Corpuscular Volume 75.6 fL (80.0-100.0); Monocytes % (auto) 14.8 % (0.0-12.0); Neutrophils # (auto) 10.1 10 ^3/uL (1.6-8.6); Neutrophils % (auto) 75.6 % (37.0-80.0); Red Blood Cells 2.81 10^6/uL (4.5-5.90); White Blood Cell 13.3 10^3/uL (4.4-10.8)
[2021-12-29] MEDS: DAKINS HALF STR 0.25% (NaHypochlorite) 473 ML TOPICAL SOL TOP SCH (10:00)
[2021-12-29] MEDS: CARVEDILOL 3.125 MG TAB PO SCH (10:00)
[2021-12-29 10:16] LABS: INR 1.49 (0.9-1.15); Partial Thromboplastin Time 38.4 sec (23.6-33.0)
[2021-12-29] MEDS: GABAPENTIN 100 MG CAP PO SCH ×2 (10:20→23:07)
[2021-12-29] MEDS: BRIMONIDINE 0.2% OPTH Soln 5ml EACHEYE SCH ×2 (10:20→23:15)
[2021-12-29] MEDS: B-COMPLEX W/ C & FOLIC ACID(NEPHROVITE TAB) PO SCH (10:21)
[2021-12-29] MEDS: PANTOPRAZOLE 40 MG TAB PO SCH (10:21)
[2021-12-29] MEDS: ACETAMINOPHEN 325 MG TAB PO PRN (14:00)
[2021-12-29 15:37] LABS: % Iron Saturation 10.5 % (20-55)
[2021-12-29] MEDS: LATANOPROST 0.005 % OPTH(EYE) SOL 2.5ML EACHEYE SCH (18:50)
[2021-12-29] MEDS ORDERED: EPOETIN ALFA-EPBX 10,000 UNIT/1ML VIAL SC ONE (21:00)
[2021-12-29] MEDS: CINACALCET HYDROCHLORIDE 30 MG TAB PO SCH (22:00)
[2021-12-29] MEDS: ATORVASTATIN 20 MG TAB PO SCH (23:06)
[2021-12-30] VITALS (8 sets, daily range): BP systolic 101–112; BP diastolic 62–73
[2021-12-30] MEDS: ACETAMINOPHEN 325 MG TAB PO PRN ×2 (01:11→22:29)
[2021-12-30] MEDS ORDERED: METOPROLOL TARTRATE 25 MG TAB PO ONE (01:45)
[2021-12-30] MEDS ORDERED: METOPROLOL TARTRATE 1MG/1ML-5ML VIAL IV PRN (06:30)
[2021-12-30] MEDS: PIPERACILLIN-TAZOB 2.25GM 50 ML IV SCH ×3 (07:18→22:30)
[2021-12-30] MEDS: CALCIUM ACETATE 667 MG CAP PO SCH ×3 (07:18→16:32)
[2021-12-30 08:59] LABS: Hemoglobin 8.7 g/dL (13.5-17.5)
[2021-12-30 09:01] LABS: Hematocrit 26.9 % (41.0-53.0)
[2021-12-30 09:16] LABS: INR 1.36 (0.9-1.15); Partial Thromboplastin Time 35.2 sec (23.6-33.0)
[2021-12-30] MEDS: BRIMONIDINE 0.2% OPTH Soln 5ml EACHEYE SCH ×2 (09:18→22:34)
[2021-12-30] MEDS: CARVEDILOL 3.125 MG TAB PO SCH (09:18)
[2021-12-30] MEDS: B-COMPLEX W/ C & FOLIC ACID(NEPHROVITE TAB) PO SCH (09:19)
[2021-12-30] MEDS: DAKINS HALF STR 0.25% (NaHypochlorite) 473 ML TOPICAL SOL TOP SCH (09:19)
[2021-12-30] MEDS: GABAPENTIN 100 MG CAP PO SCH ×2 (09:19→22:30)
[2021-12-30] MEDS: PANTOPRAZOLE 40 MG TAB PO SCH (09:19)
[2021-12-30] MEDS: LATANOPROST 0.005 % OPTH(EYE) SOL 2.5ML EACHEYE SCH (16:32)
[2021-12-30] MEDS ORDERED: IPRATROPIUM BROM 0.5 MG/2.5ML INH SOL NEB PRN (20:00)
[2021-12-30] MEDS ORDERED: ALBUTEROL SULF 2.5 MG/0.5ML(0.5%) NEB SOLN NEB PRN (20:00)
[2021-12-30] MEDS: ATORVASTATIN 20 MG TAB PO SCH (22:28)
[2021-12-30] MEDS: CINACALCET HYDROCHLORIDE 30 MG TAB PO SCH (22:30)
[2021-12-30] MEDS: HYDROcodone-ACET 10/325MG TAB PO PRN (23:48)
[2021-12-31 05:00] VITALS: BP 109/59
[2021-12-31] MEDS: PIPERACILLIN-TAZOB 2.25GM 50 ML IV SCH ×3 (06:00→23:38)
[2021-12-31] MEDS: CALCIUM ACETATE 667 MG CAP PO SCH ×3 (06:00→17:51)
[2021-12-31] MEDS: HYDROcodone-ACET 10/325MG TAB PO PRN (06:12)
[2021-12-31 06:47] LABS: INR 1.34 (0.9-1.15)
[2021-12-31 07:37] VITALS: BP 107/73
[2021-12-31 09:00] VITALS: BP 105/55
[2021-12-31] MEDS: B-COMPLEX W/ C & FOLIC ACID(NEPHROVITE TAB) PO SCH (09:54)
[2021-12-31] MEDS: CARVEDILOL 3.125 MG TAB PO SCH (09:56)
[2021-12-31] MEDS: GABAPENTIN 100 MG CAP PO SCH ×2 (09:56→23:38)
[2021-12-31] MEDS: PANTOPRAZOLE 40 MG TAB PO SCH (09:56)
[2021-12-31] MEDS: BRIMONIDINE 0.2% OPTH Soln 5ml EACHEYE SCH ×2 (10:08→23:39)
[2021-12-31 13:00] VITALS: BP 74/32
[2021-12-31] MEDS: DAKINS HALF STR 0.25% (NaHypochlorite) 473 ML TOPICAL SOL TOP SCH (13:28)
[2021-12-31 14:53] LABS: Basophils # (auto) 0.1 10 ^3/uL (0-0.2); Eosinophils # (auto) 0.5 10 ^3/uL (0-0.8); Hemoglobin 7.9 g/dL (13.5-17.5); Lymphocytes # (auto) 0.9 10 ^3/uL (0.4-5.4); Neutrophils # (auto) 6.9 10 ^3/uL (1.6-8.6); White Blood Cell 9.3 10^3/uL (4.4-10.8)
[2021-12-31 14:55] LABS: Basophils % (auto) 1.4 % (0.0-2.0); Eosinophils % (auto) 5.7 % (0.0-7.0); Hematocrit 23.5 % (41.0-53.0); Lymphocytes % (auto) 9.6 % (10.0-50.0); Mean Corpuscular Hemoglobin 25.9 pg (28.0-32.0); Mean Corpuscular Hgb Conc. 33.5 g/dL (32.0-36.0); Mean Corpuscular Volume 77.2 fL (80.0-100.0); Monocytes # (auto) 0.9 10 ^3/uL (0-1.3); Monocytes % (auto) 9.7 % (0.0-12.0); Neutrophils % (auto) 73.6 % (37.0-80.0); Nucleated Red Blood Cells % 0.1 %; Red Blood Cells 3.04 10^6/uL (4.5-5.90); Red Cell Distribution Width 22.2 % (11.8-14.3)
[2021-12-31 17:00] VITALS: BP 94/61
[2021-12-31] MEDS: LATANOPROST 0.005 % OPTH(EYE) SOL 2.5ML EACHEYE SCH ×2 (17:51→18:00)
[2021-12-31 22:00] VITALS: BP 113/68
[2021-12-31] MEDS: ATORVASTATIN 20 MG TAB PO SCH (23:38)
[2021-12-31] MEDS: CINACALCET HYDROCHLORIDE 30 MG TAB PO SCH (23:44)
[2022-01-01 05:00] VITALS: BP 97/60
[2022-01-01] MEDS: CALCIUM ACETATE 667 MG CAP PO SCH ×3 (06:02→17:59)
[2022-01-01] MEDS: PIPERACILLIN-TAZOB 2.25GM 50 ML IV SCH ×3 (06:02→22:05)
[2022-01-01] MEDS: HYDROcodone-ACET 10/325MG TAB PO PRN (06:13)
[2022-01-01 09:00] VITALS: BP 106/64
[2022-01-01] MEDS: CARVEDILOL 3.125 MG TAB PO SCH (09:29)
[2022-01-01] MEDS: BRIMONIDINE 0.2% OPTH Soln 5ml EACHEYE SCH ×2 (09:39→22:05)
[2022-01-01] MEDS: B-COMPLEX W/ C & FOLIC ACID(NEPHROVITE TAB) PO SCH (09:39)
[2022-01-01] MEDS: PANTOPRAZOLE 40 MG TAB PO SCH (09:40)
[2022-01-01] MEDS: GABAPENTIN 100 MG CAP PO SCH ×2 (09:40→22:06)
[2022-01-01] MEDS: DAKINS HALF STR 0.25% (NaHypochlorite) 473 ML TOPICAL SOL TOP SCH (09:41)
[2022-01-01 12:40] VITALS: BP 97/59
[2022-01-01 17:00] VITALS: BP 96/67
[2022-01-01] MEDS: LATANOPROST 0.005 % OPTH(EYE) SOL 2.5ML EACHEYE SCH (18:00)
[2022-01-01 22:00] VITALS: BP 100/65
[2022-01-01] MEDS: ATORVASTATIN 20 MG TAB PO SCH (22:05)
[2022-01-01] MEDS: CINACALCET HYDROCHLORIDE 30 MG TAB PO SCH (22:06)
[2022-01-02 05:00] VITALS: BP 106/61
[2022-01-02] MEDS: CALCIUM ACETATE 667 MG CAP PO SCH ×3 (06:12→16:39)
[2022-01-02] MEDS ORDERED: SODIUM CHL 0.9% 1000 ML BAG XX ONE (07:00)
[2022-01-02 09:00] VITALS: BP 115/73
[2022-01-02] MEDS: CARVEDILOL 3.125 MG TAB PO SCH (10:00)
[2022-01-02] MEDS: BRIMONIDINE 0.2% OPTH Soln 5ml EACHEYE SCH ×2 (10:00→22:39)
[2022-01-02] MEDS: B-COMPLEX W/ C & FOLIC ACID(NEPHROVITE TAB) PO SCH (10:05)
[2022-01-02] MEDS: PANTOPRAZOLE 40 MG TAB PO SCH (10:05)
[2022-01-02] MEDS: GABAPENTIN 100 MG CAP PO SCH ×2 (10:05→22:39)
[2022-01-02] MEDS: DAKINS HALF STR 0.25% (NaHypochlorite) 473 ML TOPICAL SOL TOP SCH (10:06)
[2022-01-02 11:27] LABS: Basophils # (auto) 0.1 10 ^3/uL (0-0.2); Basophils % (auto) 1.5 % (0.0-2.0); Eosinophils # (auto) 0.6 10 ^3/uL (0-0.8); Eosinophils % (auto) 7.1 % (0.0-7.0); Hematocrit 24.7 % (41.0-53.0); Hemoglobin 8.1 g/dL (13.5-17.5); Lymphocytes # (auto) 0.9 10 ^3/uL (0.4-5.4); Lymphocytes % (auto) 10.5 % (10.0-50.0); Mean Corpuscular Hemoglobin 25.3 pg (28.0-32.0); Mean Corpuscular Volume 76.6 fL (80.0-100.0); Monocytes % (auto) 11.8 % (0.0-12.0); Neutrophils # (auto) 5.8 10 ^3/uL (1.6-8.6); Neutrophils % (auto) 69.1 % (37.0-80.0); Red Blood Cells 3.22 10^6/uL (4.5-5.90); Red Cell Distribution Width 22.9 % (11.8-14.3); White Blood Cell 8.4 10^3/uL (4.4-10.8)
[2022-01-02 11:46] LABS: Calcium 7.2 mg/dL (8.5-10.1); Potassium 4.8 mmol/L (3.5-5.1)
[2022-01-02 11:50] LABS: BUN/Creatinine Ratio 5.3
[2022-01-02 13:00] VITALS: BP 120/78
[2022-01-02] MEDS: HYDROcodone-ACET 10/325MG TAB PO PRN ×3 (16:39→22:44)
[2022-01-02 17:07] VITALS: BP 128/74
[2022-01-02] MEDS: LATANOPROST 0.005 % OPTH(EYE) SOL 2.5ML EACHEYE SCH ×2 (17:53→17:56)
[2022-01-02 22:00] VITALS: BP 144/84
[2022-01-02] MEDS: ATORVASTATIN 20 MG TAB PO SCH (22:39)
[2022-01-02] MEDS: CINACALCET HYDROCHLORIDE 30 MG TAB PO SCH (22:39)
[2022-01-03 05:00] VITALS: BP 131/73
[2022-01-03 05:37] LABS: Basophils # (auto) 0.1 10 ^3/uL (0-0.2); Eosinophils # (auto) 0.6 10 ^3/uL (0-0.8); Hematocrit 24.7 % (41.0-53.0); Hemoglobin 8.2 g/dL (13.5-17.5); Neutrophils # (auto) 5.6 10 ^3/uL (1.6-8.6); Red Blood Cells 3.24 10^6/uL (4.5-5.90); White Blood Cell 8.3 10^3/uL (4.4-10.8)
[2022-01-03 05:39] LABS: Basophils % (auto) 1.4 % (0.0-2.0); Mean Corpuscular Hemoglobin 25.3 pg (28.0-32.0); Mean Corpuscular Hgb Conc. 33.2 g/dL (32.0-36.0); Mean Corpuscular Volume 76.1 fL (80.0-100.0); Neutrophils % (auto) 67.6 % (37.0-80.0); Nucleated Red Blood Cells % 0.1 %
[2022-01-03 05:51] LABS: Red Cell Distribution Width 23.4 % (11.8-14.3)
[2022-01-03 05:54] LABS: INR 1.29 (0.9-1.15); Partial Thromboplastin Time 39.9 sec (23.6-33.0)
[2022-01-03] MEDS: CALCIUM ACETATE 667 MG CAP PO SCH ×3 (06:43→17:51)
[2022-01-03 08:00] VITALS: BP 129/76
[2022-01-03 08:59] VITALS: BP 129/76
[2022-01-03] MEDS: B-COMPLEX W/ C & FOLIC ACID(NEPHROVITE TAB) PO SCH (10:02)
[2022-01-03] MEDS: GABAPENTIN 100 MG CAP PO SCH ×2 (10:02→21:06)
[2022-01-03] MEDS: CARVEDILOL 3.125 MG TAB PO SCH (10:03)
[2022-01-03] MEDS: BRIMONIDINE 0.2% OPTH Soln 5ml EACHEYE SCH ×2 (10:06→21:06)
[2022-01-03] MEDS: DAKINS HALF STR 0.25% (NaHypochlorite) 473 ML TOPICAL SOL TOP SCH (10:10)
[2022-01-03 13:00] VITALS: BP 137/86
[2022-01-03] MEDS: LATANOPROST 0.005 % OPTH(EYE) SOL 2.5ML EACHEYE SCH (17:14)
[2022-01-03] MEDS: ATORVASTATIN 20 MG TAB PO SCH (21:06)
[2022-01-03] MEDS: CINACALCET HYDROCHLORIDE 30 MG TAB PO SCH (21:07)
[2022-01-03 22:00] VITALS: BP 111/68
[2022-01-04 05:00] VITALS: BP 90/51
[2022-01-04] MEDS: CALCIUM ACETATE 667 MG CAP PO SCH ×3 (07:00→18:28)
[2022-01-04] MEDS ORDERED: SODIUM CHL 0.9% 1000 ML BAG XX ONE (07:00)
[2022-01-04 09:29] VITALS: BP 122/79
[2022-01-04] MEDS: CARVEDILOL 3.125 MG TAB PO SCH (09:58)
[2022-01-04] MEDS: B-COMPLEX W/ C & FOLIC ACID(NEPHROVITE TAB) PO SCH (09:58)
[2022-01-04] MEDS: BRIMONIDINE 0.2% OPTH Soln 5ml EACHEYE SCH ×3 (10:00→21:50)
[2022-01-04] MEDS: DAKINS HALF STR 0.25% (NaHypochlorite) 473 ML TOPICAL SOL TOP SCH (10:00)
[2022-01-04] MEDS: GABAPENTIN 100 MG CAP PO SCH ×2 (10:24→21:49)
[2022-01-04] MEDS ORDERED: BUPIVACAINE W/ EPINEPH 0.25% INJ 50ML MDV ONE (10:25)
[2022-01-04] MEDS: HYDROcodone-ACET 10/325MG TAB PO PRN (16:16)
[2022-01-04 16:42] VITALS: BP 112/59
[2022-01-04] MEDS: LATANOPROST 0.005 % OPTH(EYE) SOL 2.5ML EACHEYE SCH (18:00)
[2022-01-04] MEDS: ATORVASTATIN 20 MG TAB PO SCH (21:49)
[2022-01-04] MEDS: CINACALCET HYDROCHLORIDE 30 MG TAB PO SCH (21:49)
[2022-01-04 22:00] VITALS: BP 129/84
[2022-01-04 23:40] LABS: Basophils # (auto) 0.1 10 ^3/uL (0-0.2); Eosinophils # (auto) 0.5 10 ^3/uL (0-0.8); Hematocrit 26.2 % (41.0-53.0); Mean Corpuscular Volume 75.7 fL (80.0-100.0); Red Blood Cells 3.46 10^6/uL (4.5-5.90)
[2022-01-04 23:41] LABS: Basophils % (auto) 1.2 % (0.0-2.0); Eosinophils % (auto) 4.6 % (0.0-7.0); Hemoglobin 8.8 g/dL (13.5-17.5); Lymphocytes # (auto) 1.1 10 ^3/uL (0.4-5.4); Lymphocytes % (auto) 10.4 % (10.0-50.0); Mean Corpuscular Hemoglobin 25.4 pg (28.0-32.0); Mean Corpuscular Hgb Conc. 33.5 g/dL (32.0-36.0); Monocytes # (auto) 1.3 10 ^3/uL (0-1.3); Monocytes % (auto) 12.3 % (0.0-12.0); Neutrophils # (auto) 7.6 10 ^3/uL (1.6-8.6); Neutrophils % (auto) 71.5 % (37.0-80.0); Nucleated Red Blood Cells % 0.1 %; Red Cell Distribution Width 22.7 % (11.8-14.3); White Blood Cell 10.6 10^3/uL (4.4-10.8)
[2022-01-04 23:51] LABS: INR 1.32 (0.9-1.15); Partial Thromboplastin Time 40.4 sec (23.6-33.0)
[2022-01-04 23:59] LABS: BUN/Creatinine Ratio 3.8; Calcium 7.3 mg/dL (8.5-10.1); Potassium 4.2 mmol/L (3.5-5.1)
[2022-01-05] VITALS (14 sets, daily range): BP systolic 105–123; BP diastolic 66–77
[2022-01-05] MEDS: CALCIUM ACETATE 667 MG CAP PO SCH ×3 (07:00→17:30)
[2022-01-05] MEDS ORDERED: ceFAZolin 1GM/50ML 100 ML IV ONE (07:19)
[2022-01-05] MEDS ORDERED: MIDAZOLAM HCL 2MG/2ML 2ml VIAL (1mg/ml) ONE (07:26)
[2022-01-05] MEDS ORDERED: GLYCOPYRROLATE 0.2 MG/ML 1ML VIAL ONE (07:27)
[2022-01-05] MEDS ORDERED: PHENYLEPHRINE HCL 10 MG/ML VL ONE (07:27)
[2022-01-05] MEDS ORDERED: ePHEDrine SULFATE 50 MG/ML AMP ONE (07:27)
[2022-01-05] MEDS ORDERED: fentaNYL CITRATE 100 MCG/2 ML VL ONE (07:27)
[2022-01-05] MEDS ORDERED: MORPHINE SULF PF 5 MG/10 ML VIAL ONE (07:27)
[2022-01-05] MEDS ORDERED: ONDANSETRON HCL 4 MG/2 ML VIAL ONE (07:27)
[2022-01-05] MEDS ORDERED: KETAMINE HCL 10 ML ONE (07:30)
[2022-01-05] MEDS ORDERED: BUPIVACAINE/DEXTROSE MPF 0.75% 2 ML AMP IT ONE (07:47)
[2022-01-05] MEDS ORDERED: PROPOFOL 10 MG/ML 20 ML IV ONE (07:47)
[2022-01-05] MEDS ORDERED: DexAMETHasone SOD PHOS 10MG/1ML VIAL INJ IV PRN (09:15)
[2022-01-05] MEDS ORDERED: ONDANSETRON HCL 4 MG/2 ML VIAL IV PRN ×2 (09:15)
[2022-01-05] MEDS ORDERED: NALOXONE HCL 0.4 MG/ML VIAL IV PRN ×2 (09:15)
[2022-01-05] MEDS ORDERED: ACCU-CHEK COMFORT CURVE STRIP VI ONE (09:15)
[2022-01-05] MEDS ORDERED: diphenhdrAMINE HCL 50 MG/1 ML VL IV PRN (09:15)
[2022-01-05] MEDS: DAKINS HALF STR 0.25% (NaHypochlorite) 473 ML TOPICAL SOL TOP SCH (10:00)
[2022-01-05] MEDS: GABAPENTIN 100 MG CAP PO SCH ×2 (11:30→22:10)
[2022-01-05] MEDS: B-COMPLEX W/ C & FOLIC ACID(NEPHROVITE TAB) PO SCH (11:30)
[2022-01-05] MEDS: CARVEDILOL 3.125 MG TAB PO SCH (11:30)
[2022-01-05] MEDS: BRIMONIDINE 0.2% OPTH Soln 5ml EACHEYE SCH ×2 (11:30→22:10)
[2022-01-05 15:06] LABS: Eosinophils # (auto) 0.1 10 ^3/uL (0-0.8); Hematocrit 24.6 % (41.0-53.0); Mean Corpuscular Volume 77.6 fL (80.0-100.0); Monocytes # (auto) 0.2 10 ^3/uL (0-1.3); Red Blood Cells 3.17 10^6/uL (4.5-5.90)
[2022-01-05 15:08] LABS: Basophils # (auto) 0.3 10 ^3/uL (0-0.2); Basophils % (auto) 2.8 % (0.0-2.0); Eosinophils % (auto) 1.3 % (0.0-7.0); Lymphocytes # (auto) 0.4 10 ^3/uL (0.4-5.4); Lymphocytes % (auto) 3.7 % (10.0-50.0); Mean Corpuscular Hemoglobin 25.3 pg (28.0-32.0); Mean Corpuscular Hgb Conc. 32.6 g/dL (32.0-36.0); Monocytes % (auto) 1.9 % (0.0-12.0); Neutrophils # (auto) 9.8 10 ^3/uL (1.6-8.6); Neutrophils % (auto) 90.3 % (37.0-80.0); Nucleated Red Blood Cells % 0.1 %; White Blood Cell 10.9 10^3/uL (4.4-10.8)
[2022-01-05 15:21] LABS: INR 1.35 (0.9-1.15); Partial Thromboplastin Time 40.4 sec (23.6-33.0)
[2022-01-05 15:22] LABS: Red Cell Distribution Width 22.5 % (11.8-14.3)
[2022-01-05] MEDS: LATANOPROST 0.005 % OPTH(EYE) SOL 2.5ML EACHEYE SCH (18:14)
[2022-01-05] MEDS: CINACALCET HYDROCHLORIDE 30 MG TAB PO SCH (22:10)
[2022-01-06] VITALS (17 sets, daily range): BP systolic 94–121; BP diastolic 51–82
[2022-01-06] MEDS ORDERED: SODIUM CHL 0.9% 1000 ML BAG XX ONE (07:00)
[2022-01-06] MEDS: CALCIUM ACETATE 667 MG CAP PO SCH ×3 (08:06→17:07)
[2022-01-06] MEDS: DAKINS HALF STR 0.25% (NaHypochlorite) 473 ML TOPICAL SOL TOP SCH (10:00)
[2022-01-06] MEDS: BRIMONIDINE 0.2% OPTH Soln 5ml EACHEYE SCH ×2 (10:00→21:53)
[2022-01-06] MEDS: CARVEDILOL 3.125 MG TAB PO SCH (10:00)
[2022-01-06] MEDS: B-COMPLEX W/ C & FOLIC ACID(NEPHROVITE TAB) PO SCH (12:55)
[2022-01-06] MEDS: HYDROcodone-ACET 10/325MG TAB PO PRN ×2 (12:55→18:57)
[2022-01-06] MEDS: GABAPENTIN 100 MG CAP PO SCH ×2 (12:55→21:53)
[2022-01-06] MEDS: LATANOPROST 0.005 % OPTH(EYE) SOL 2.5ML EACHEYE SCH (18:00)
[2022-01-06] MEDS ORDERED: EPOETIN ALFA-EPBX 10,000 UNIT/1ML VIAL SC ONE (21:00)
[2022-01-06] MEDS: CINACALCET HYDROCHLORIDE 30 MG TAB PO SCH (21:53)
[2022-01-07 00:10] LABS: Hemoglobin 7.2 g/dL (13.5-17.5)
[2022-01-07 00:12] LABS: Hematocrit 21.7 % (41.0-53.0)
[2022-01-07] MEDS: HYDROcodone-ACET 10/325MG TAB PO PRN ×2 (05:39→22:47)
[2022-01-07 05:49] VITALS: BP 94/57
[2022-01-07] MEDS: CALCIUM ACETATE 667 MG CAP PO SCH ×3 (06:41→17:06)
[2022-01-07 09:00] VITALS: BP 120/57
[2022-01-07] MEDS: DAKINS HALF STR 0.25% (NaHypochlorite) 473 ML TOPICAL SOL TOP SCH (09:08)
[2022-01-07] MEDS: B-COMPLEX W/ C & FOLIC ACID(NEPHROVITE TAB) PO SCH (09:45)
[2022-01-07] MEDS: BRIMONIDINE 0.2% OPTH Soln 5ml EACHEYE SCH ×2 (09:45→21:47)
[2022-01-07] MEDS: ASCORBIC ACID 500 MG TAB PO SCH (09:46)
[2022-01-07] MEDS: GABAPENTIN 100 MG CAP PO SCH ×2 (09:46→21:47)
[2022-01-07] MEDS: CARVEDILOL 3.125 MG TAB PO SCH (11:19)
[2022-01-07 17:47] VITALS: BP 147/64
[2022-01-07] MEDS: FERROUS SULFATE 325mg EC TAB PO SCH (18:12)
[2022-01-07] MEDS: LATANOPROST 0.005 % OPTH(EYE) SOL 2.5ML EACHEYE SCH (18:12)
[2022-01-07] MEDS: CINACALCET HYDROCHLORIDE 30 MG TAB PO SCH (21:55)
[2022-01-07 22:00] VITALS: BP 104/64
[2022-01-08] VITALS (8 sets, daily range): BP systolic 101–126; BP diastolic 59–77
[2022-01-08] MEDS: CALCIUM ACETATE 667 MG CAP PO SCH ×3 (06:52→16:29)
[2022-01-08 07:05] LABS: Basophils # (auto) 0.2 10 ^3/uL (0-0.2); Monocytes # (auto) 1.1 10 ^3/uL (0-1.3)
[2022-01-08 07:18] LABS: Basophils % (auto) 2.4 % (0.0-2.0); Eosinophils # (auto) 0.5 10 ^3/uL (0-0.8); Eosinophils % (auto) 5.4 % (0.0-7.0); Hematocrit 21.1 % (41.0-53.0); Hemoglobin 7.1 g/dL (13.5-17.5); Lymphocytes # (auto) 1.4 10 ^3/uL (0.4-5.4); Lymphocytes % (auto) 13.9 % (10.0-50.0); Mean Corpuscular Hemoglobin 25.1 pg (28.0-32.0); Mean Corpuscular Hgb Conc. 33.5 g/dL (32.0-36.0); Mean Corpuscular Volume 74.9 fL (80.0-100.0); Neutrophils # (auto) 6.8 10 ^3/uL (1.6-8.6); Neutrophils % (auto) 67.3 % (37.0-80.0); Nucleated Red Blood Cells % 0.1 %; Red Blood Cells 2.82 10^6/uL (4.5-5.90); Red Cell Distribution Width 22.5 % (11.8-14.3); White Blood Cell 10.1 10^3/uL (4.4-10.8)
[2022-01-08 07:31] LABS: BUN/Creatinine Ratio 3.4; Calcium 6.7 mg/dL (8.5-10.1); Potassium 4.2 mmol/L (3.5-5.1)
[2022-01-08] MEDS: FERROUS SULFATE 325mg EC TAB PO SCH ×2 (09:45→17:19)
[2022-01-08] MEDS: GABAPENTIN 100 MG CAP PO SCH ×2 (09:45→21:08)
[2022-01-08] MEDS: B-COMPLEX W/ C & FOLIC ACID(NEPHROVITE TAB) PO SCH (09:46)
[2022-01-08] MEDS: ASCORBIC ACID 500 MG TAB PO SCH (09:46)
[2022-01-08] MEDS: DAKINS HALF STR 0.25% (NaHypochlorite) 473 ML TOPICAL SOL TOP SCH (09:47)
[2022-01-08] MEDS: BRIMONIDINE 0.2% OPTH Soln 5ml EACHEYE SCH ×2 (09:47→21:08)
[2022-01-08] MEDS: CARVEDILOL 3.125 MG TAB PO SCH (09:47)
[2022-01-08] MEDS: LATANOPROST 0.005 % OPTH(EYE) SOL 2.5ML EACHEYE SCH (17:19)
[2022-01-08] MEDS: CINACALCET HYDROCHLORIDE 30 MG TAB PO SCH (21:08)
[2022-01-08] MEDS: HYDROcodone-ACET 10/325MG TAB PO PRN (21:09)
[2022-01-09 05:00] VITALS: BP 117/76
[2022-01-09] MEDS: CALCIUM ACETATE 667 MG CAP PO SCH ×3 (06:36→18:40)
[2022-01-09] MEDS ORDERED: SODIUM CHL 0.9% 1000 ML BAG XX ONE (07:00)
[2022-01-09 09:00] VITALS: BP 118/76
[2022-01-09] MEDS: FERROUS SULFATE 325mg EC TAB PO SCH ×2 (09:15→18:40)
[2022-01-09] MEDS: CARVEDILOL 3.125 MG TAB PO SCH (09:16)
[2022-01-09] MEDS: B-COMPLEX W/ C & FOLIC ACID(NEPHROVITE TAB) PO SCH (09:16)
[2022-01-09] MEDS: GABAPENTIN 100 MG CAP PO SCH (09:16)
[2022-01-09] MEDS: ASCORBIC ACID 500 MG TAB PO SCH (09:17)
[2022-01-09] MEDS: DAKINS HALF STR 0.25% (NaHypochlorite) 473 ML TOPICAL SOL TOP SCH (09:55)
[2022-01-09] MEDS: BRIMONIDINE 0.2% OPTH Soln 5ml EACHEYE SCH (09:56)
[2022-01-09 13:04] VITALS: BP 120/86
[2022-01-09 13:31] LABS: Hematocrit 24.2 % (41.0-53.0); Hemoglobin 7.8 g/dL (13.5-17.5)
[2022-01-09 16:24] VITALS: BP 120/86
[2022-01-09 17:50] VITALS: BP 126/77
[2022-01-09] MEDS: LATANOPROST 0.005 % OPTH(EYE) SOL 2.5ML EACHEYE SCH (18:00)
[2022-01-09] MEDS ORDERED: EPOETIN ALFA-EPBX 4,000 UNIT/ML VIAL SC ONE (21:00)
== END 2022-01-09 21:15 | DRG 239 ==
LOC: EDBD 10:51 → ER 10:51 → TELE 12:51 → TELE-WESTW 15:44
PROVIDERS: ADMIT Nurse Practitioner; ATTEND Nurse Practitioner
PROC: 30233N1 Transfusion of Nonautologous Red Blood Cells into Peripheral Vein, Percutaneous Approach (ICD-10-PCS; principal; 2021-12-13)
PROC: 5A1D70Z Performance of Urinary Filtration, Intermittent, Less than 6 Hours Per Day (ICD-10-PCS; 2021-12-14)
PROC: 5A1D70Z Performance of Urinary Filtration, Intermittent, Less than 6 Hours Per Day (ICD-10-PCS; 2021-12-16)
PROC: 5A1D70Z Performance of Urinary Filtration, Intermittent, Less than 6 Hours Per Day (ICD-10-PCS; 2021-12-19)
PROC: 5A1D70Z Performance of Urinary Filtration, Intermittent, Less than 6 Hours Per Day (ICD-10-PCS; 2021-12-21)
PROC: 5A1D70Z Performance of Urinary Filtration, Intermittent, Less than 6 Hours Per Day (ICD-10-PCS; 2021-12-23)
PROC: 5A1D70Z Performance of Urinary Filtration, Intermittent, Less than 6 Hours Per Day (ICD-10-PCS; 2021-12-26)
PROC: 5A1D70Z Performance of Urinary Filtration, Intermittent, Less than 6 Hours Per Day (ICD-10-PCS; 2021-12-28)
PROC: 30233K1 Transfusion of Nonautologous Frozen Plasma into Peripheral Vein, Percutaneous Approach (ICD-10-PCS; 2021-12-28)
PROC: 5A1D70Z Performance of Urinary Filtration, Intermittent, Less than 6 Hours Per Day (ICD-10-PCS; 2021-12-30)
PROC: 5A1D70Z Performance of Urinary Filtration, Intermittent, Less than 6 Hours Per Day (ICD-10-PCS; 2022-01-02)
PROC: 5A1D70Z Performance of Urinary Filtration, Intermittent, Less than 6 Hours Per Day (ICD-10-PCS; 2022-01-04)
PROC: 0Y6J0Z3 Detachment at Left Lower Leg, Low, Open Approach (ICD-10-PCS; 2022-01-05)
PROC: 5A1D70Z Performance of Urinary Filtration, Intermittent, Less than 6 Hours Per Day (ICD-10-PCS; 2022-01-06)
DX: I13.2 Hypertensive heart and chronic kidney disease with heart failure and with stage 5 chronic kidney disease, or end stage renal disease (principal); I50.21 Acute systolic (congestive) heart failure; N18.6 End stage renal disease; D62 Acute posthemorrhagic anemia; M86.172 Other acute osteomyelitis, left ankle and foot; L03.116 Cellulitis of left lower limb; R65.10 Systemic inflammatory response syndrome (SIRS) of non-infectious origin without acute organ dysfunction; E11.69 Type 2 diabetes mellitus with other specified complication; E11.621 Type 2 diabetes mellitus with foot ulcer; I42.8 Other cardiomyopathies; Z20.822 Contact with and (suspected) exposure to COVID-19; E83.39 Other disorders of phosphorus metabolism; D63.1 Anemia in chronic kidney disease; E11.22 Type 2 diabetes mellitus with diabetic chronic kidney disease; I48.0 Paroxysmal atrial fibrillation; H40.9 Unspecified glaucoma; I35.0 Nonrheumatic aortic (valve) stenosis; E11.51 Type 2 diabetes mellitus with diabetic peripheral angiopathy without gangrene; E11.42 Type 2 diabetes mellitus with diabetic polyneuropathy; Z79.84 Long term (current) use of oral hypoglycemic drugs
CPT/HCPCS: 36415; 36430; 71045; 73700; 75635; 80048; 80053; 80202; 82270; 82607; 82728; 82746; 82962; 83540; 83550; 83880; 84484; 85014; 85018; 85025; 85610; 85730; 86850; 86870; 86900; 86901; 86902; 86922; 87081; 87340; 87493; 90935; 93005; 93926; 94640; 96374; 97110; 97163; 97530; 99291; G0378; J0690; J1642; J2250; J2405; J2543; J2704; J7060

== ENCOUNTER 2023-01-27 16:03 | Inpatient (IN) | payer MEDICARE, MEDICAID ==
[~2023-01-27] VITALS: Ht 180.3 cm; Wt 97.5 kg
[~2023-01-27 16:03] MED LIST changes: -ACET-1156 PO; +ACET-1881 PO; -LATA0.0019 EACHEYE; +LATA0.008 EACHEYE
[2023-01-27 16:44] LABS: Basophils # (auto) 0.1 10 ^3/uL (0-0.2); Lymphocytes # (auto) 0.6 10 ^3/uL (0.4-5.4); Nucleated Red Blood Cells % 0.1 %
[2023-01-27 16:45] LABS: Eosinophils # (auto) 0.2 10 ^3/uL (0-0.8); Eosinophils % (auto) 3.7 % (0.0-7.0); Hematocrit 16.7 % (41.0-53.0); Lymphocytes % (auto) 9.3 % (10.0-50.0); Mean Corpuscular Hemoglobin 26.4 pg (28.0-32.0); Mean Corpuscular Hgb Conc. 33.3 g/dL (32.0-36.0); Monocytes # (auto) 0.6 10 ^3/uL (0-1.3); Monocytes % (auto) 9.9 % (0.0-12.0); Neutrophils % (auto) 76.1 % (37.0-80.0); Red Blood Cells 2.12 10^6/uL (4.5-5.90); White Blood Cell 6.5 10^3/uL (4.4-10.8)
[2023-01-27 16:58] LABS: Hemoglobin 5.6 g/dL (13.5-17.5); Red Cell Distribution Width 23.6 % (11.8-14.3)
[2023-01-27 17:01] LABS: Albumin 3.5 g/dL (3.4-5.0); Calcium 8.4 mg/dL (8.5-10.1); Potassium 4.1 mmol/L (3.5-5.1)
[2023-01-27 17:04] LABS: BUN/Creatinine Ratio 6.1 (10.0-20.0); Bilirubin, Total 0.6 mg/dL (0.2-1.0); Total Protein 8.7 g/dL (6.4-8.2)
[2023-01-27] MEDS ORDERED: HYDROcodone-ACET 5/325MG TAB ONE (17:42)
[2023-01-27] MEDS ORDERED: HYDROcodone-ACET 5/325MG TAB PO ONE ×2 (18:00→21:45)
[2023-01-27] MEDS ORDERED: ONDANSETRON HCL 4 MG/2 ML VIAL IV PRN (21:45)
[2023-01-27] MEDS ORDERED: NITROGLYCERIN 0.4 MG SL TAB SL PRN (21:45)
[2023-01-27] MEDS ORDERED: hydrALAZINE HCL 20 MG/ML VL IV PRN (21:45)
[2023-01-27] MEDS ORDERED: DOCUSATE SOD 100 MG CAP PO PRN (21:45)
[2023-01-27] MEDS ORDERED: MORPHINE SULFATE INJ 2 MG/ml SYRG IV PRN (21:45)
[2023-01-27] MEDS ORDERED: ACETAMINOPHEN 325 MG TAB PO PRN (21:45)
[2023-01-27] MEDS: SODIUM CHLOR 0.9% PF (SALINE LOCK) 10ML VIAL/SYR IV SCH (22:00)
[2023-01-27] MEDS: ATORVASTATIN 20 MG TAB PO SCH (23:00)
[2023-01-27] MEDS: HYDROcodone-ACET 5/325MG TAB PO PRN (23:01)
[2023-01-27] MEDS: FAMOTIDINE (10MG/ML) 2ML VL IV SCH (23:01)
[2023-01-28] VITALS (7 sets, daily range): BP systolic 131–156; BP diastolic 53–80
[2023-01-28] MEDS: HYDROcodone-ACET 5/325MG TAB PO PRN (03:10)
[2023-01-28] MEDS ORDERED: MORPHINE SULFATE INJ 2 MG/ml SYRG IV PRN (03:15)
[2023-01-28] MEDS: SODIUM CHLOR 0.9% PF (SALINE LOCK) 10ML VIAL/SYR IV SCH ×3 (06:00→23:51)
[2023-01-28] MEDS: SEVELAMER 800 MG TAB PO SCH ×3 (08:39→12:38)
[2023-01-28] MEDS ORDERED: cloNIDine HCL 0.1 MG TAB PO PRN (10:30)
[2023-01-28] MEDS ORDERED: prednisoLONE ACETATE 1% OPTH SUSP 5ML OP PRN (10:30)
[2023-01-28] MEDS: B-COMPLEX W/ C & FOLIC ACID(NEPHROVITE TAB) PO SCH (11:10)
[2023-01-28] MEDS: BRIMONIDINE 0.2% OPTH Soln 5ml EACHEYE SCH ×2 (11:10→22:30)
[2023-01-28] MEDS: FAMOTIDINE (10MG/ML) 2ML VL IV SCH ×2 (11:10→23:44)
[2023-01-28 14:43] LABS: Basophils # (auto) 0.1 10 ^3/uL (0-0.2); Eosinophils # (auto) 0 10 ^3/uL (0-0.8); Lymphocytes # (auto) 0.7 10 ^3/uL (0.4-5.4); Mean Corpuscular Hemoglobin 26.3 pg (28.0-32.0); Monocytes # (auto) 0.7 10 ^3/uL (0-1.3); Monocytes % (auto) 10.5 % (0.0-12.0); Neutrophils % (auto) 76.5 % (37.0-80.0)
[2023-01-28 14:45] LABS: Basophils % (auto) 0.9 % (0.0-2.0); Eosinophils % (auto) 0.6 % (0.0-7.0); Hemoglobin 8.9 g/dL (13.5-17.5); Lymphocytes % (auto) 11.5 % (10.0-50.0); Mean Corpuscular Volume 79.8 fL (80.0-100.0); Neutrophils # (auto) 4.9 10 ^3/uL (1.6-8.6); Nucleated Red Blood Cells % 0.1 %; Red Blood Cells 3.39 10^6/uL (4.5-5.90); White Blood Cell 6.4 10^3/uL (4.4-10.8)
[2023-01-28 14:54] LABS: Albumin 3.4 g/dL (3.4-5.0); Calcium 7.8 mg/dL (8.5-10.1); Potassium 5.3 mmol/L (3.5-5.1); Red Cell Distribution Width 20.6 % (11.8-14.3)
[2023-01-28 14:58] LABS: Bilirubin, Total 0.8 mg/dL (0.2-1.0); Total Protein 7.9 g/dL (6.4-8.2)
[2023-01-28] MEDS: [UNRECOGNIZED DRUG - OTHER] EACHEYE SCH (18:00)
[2023-01-28] MEDS: LATANOPROST 0.005 % OPTH(EYE) SOL 2.5ML EACHEYE SCH (18:00)
[2023-01-28] MEDS ORDERED: PATIENTS OWN MEDICATION (Atorvastatin Calcium (Lipitor) 1 TAB) PO SCH (18:00)
[2023-01-28] MEDS ORDERED: ATORVASTATIN 20 MG TAB PO SCH (22:00)
[2023-01-28] MEDS: ATORVASTATIN 20 MG TAB PO SCH (22:00)
[2023-01-28] MEDS: GABAPENTIN 100 MG CAP PO SCH (23:44)
[2023-01-29 05:00] VITALS: BP 138/70
[2023-01-29] MEDS: SODIUM CHLOR 0.9% PF (SALINE LOCK) 10ML VIAL/SYR IV SCH ×3 (06:48→21:22)
[2023-01-29] MEDS: SEVELAMER 800 MG TAB PO SCH ×3 (08:00→18:24)
[2023-01-29 08:30] VITALS: BP 142/65
[2023-01-29] MEDS: FAMOTIDINE (10MG/ML) 2ML VL IV SCH ×2 (09:38→21:21)
[2023-01-29] MEDS: CARVEDILOL 3.125 MG TAB PO SCH (09:39)
[2023-01-29] MEDS: B-COMPLEX W/ C & FOLIC ACID(NEPHROVITE TAB) PO SCH (09:39)
[2023-01-29] MEDS: GABAPENTIN 100 MG CAP PO SCH ×2 (09:40→21:22)
[2023-01-29] MEDS ORDERED: PATIENTS OWN MEDICATION (Carvedilol 6.25 MG) PO SCH (10:00)
[2023-01-29] MEDS: PATIENTS OWN MEDICATION (Cholecalciferol (Vitamin D3) 1 TAB) PO SCH (10:10)
[2023-01-29] MEDS: BRIMONIDINE 0.2% OPTH Soln 5ml EACHEYE SCH ×2 (10:30→22:30)
[2023-01-29 12:30] VITALS: BP 138/64
[2023-01-29 16:30] VITALS: BP 132/58
[2023-01-29] MEDS: [UNRECOGNIZED DRUG - OTHER] EACHEYE SCH (18:00)
[2023-01-29] MEDS: LATANOPROST 0.005 % OPTH(EYE) SOL 2.5ML EACHEYE SCH (18:24)
[2023-01-29] MEDS: ATORVASTATIN 20 MG TAB PO SCH (21:22)
[2023-01-29 22:00] VITALS: BP 122/32
[2023-01-30 05:00] VITALS: BP 135/65
[2023-01-30] MEDS: SODIUM CHLOR 0.9% PF (SALINE LOCK) 10ML VIAL/SYR IV SCH ×3 (05:46→22:44)
[2023-01-30] MEDS ORDERED: SODIUM CHL 0.9% 1000 ML BAG XX ONE (07:00)
[2023-01-30] MEDS: SEVELAMER 800 MG TAB PO SCH ×3 (08:40→17:56)
[2023-01-30 09:00] VITALS: BP 116/41
[2023-01-30] MEDS: PATIENTS OWN MEDICATION (Cholecalciferol (Vitamin D3) 1 TAB) PO SCH (10:00)
[2023-01-30] MEDS: B-COMPLEX W/ C & FOLIC ACID(NEPHROVITE TAB) PO SCH (10:04)
[2023-01-30] MEDS: GABAPENTIN 100 MG CAP PO SCH ×2 (10:05→21:22)
[2023-01-30] MEDS: CARVEDILOL 3.125 MG TAB PO SCH (10:05)
[2023-01-30] MEDS: FAMOTIDINE (10MG/ML) 2ML VL IV SCH ×2 (10:05→22:43)
[2023-01-30] MEDS: LATANOPROST 0.005 % OPTH(EYE) SOL 2.5ML EACHEYE SCH (10:05)
[2023-01-30 13:00] VITALS: BP 137/56
[2023-01-30] MEDS: BRIMONIDINE 0.2% OPTH Soln 5ml EACHEYE SCH ×2 (14:14→21:22)
[2023-01-30 15:52] LABS: Basophils # (auto) 0.1 10 ^3/uL (0-0.2); Eosinophils # (auto) 0.2 10 ^3/uL (0-0.8); Hemoglobin 7.2 g/dL (13.5-17.5); Neutrophils # (auto) 4.7 10 ^3/uL (1.6-8.6); Nucleated Red Blood Cells % 0.2 %
[2023-01-30 15:54] LABS: Basophils % (auto) 1.2 % (0.0-2.0); Eosinophils % (auto) 2.2 % (0.0-7.0); Hematocrit 21.7 % (41.0-53.0); Lymphocytes % (auto) 13.9 % (10.0-50.0); Mean Corpuscular Hemoglobin 26.3 pg (28.0-32.0); Mean Corpuscular Hgb Conc. 33.1 g/dL (32.0-36.0); Mean Corpuscular Volume 79.5 fL (80.0-100.0); Monocytes % (auto) 14.8 % (0.0-12.0); Neutrophils % (auto) 67.9 % (37.0-80.0); Red Blood Cells 2.74 10^6/uL (4.5-5.90)
[2023-01-30 16:09] LABS: BUN/Creatinine Ratio 5.9 (10.0-20.0); Calcium 7.9 mg/dL (8.5-10.1); Potassium 5.2 mmol/L (3.5-5.1)
[2023-01-30 17:42] VITALS: BP 155/69
[2023-01-30] MEDS: [UNRECOGNIZED DRUG - OTHER] EACHEYE SCH (17:56)
[2023-01-30] MEDS ORDERED: EPOETIN ALFA-EPBX 10,000 UNIT/1ML VIAL SC ONE (21:00)
[2023-01-30] MEDS: ATORVASTATIN 20 MG TAB PO SCH (21:22)
[2023-01-30 22:00] VITALS: BP 132/57
[2023-01-31 05:00] VITALS: BP 154/66
[2023-01-31] MEDS: SODIUM CHLOR 0.9% PF (SALINE LOCK) 10ML VIAL/SYR IV SCH ×3 (06:20→20:43)
[2023-01-31] MEDS ORDERED: SODIUM CHL 0.9% 1000 ML BAG XX ONE (07:15)
[2023-01-31] MEDS: SEVELAMER 800 MG TAB PO SCH ×4 (08:00→18:42)
[2023-01-31 09:00] VITALS: BP 130/61
[2023-01-31] MEDS: FAMOTIDINE (10MG/ML) 2ML VL IV SCH ×2 (09:42→20:42)
[2023-01-31] MEDS: B-COMPLEX W/ C & FOLIC ACID(NEPHROVITE TAB) PO SCH (09:43)
[2023-01-31] MEDS: GABAPENTIN 100 MG CAP PO SCH ×2 (09:44→20:43)
[2023-01-31] MEDS: CARVEDILOL 3.125 MG TAB PO SCH (09:44)
[2023-01-31] MEDS: PATIENTS OWN MEDICATION (Cholecalciferol (Vitamin D3) 1 TAB) PO SCH (10:00)
[2023-01-31] MEDS: BRIMONIDINE 0.2% OPTH Soln 5ml EACHEYE SCH ×2 (10:30→22:30)
[2023-01-31 13:00] VITALS: BP 129/60
[2023-01-31 14:44] LABS: Basophils # (auto) 0.1 10 ^3/uL (0-0.2); Lymphocytes # (auto) 0.8 10 ^3/uL (0.4-5.4); Nucleated Red Blood Cells % 0.1 %
[2023-01-31 14:48] LABS: Basophils % (auto) 1.1 % (0.0-2.0); Eosinophils # (auto) 0.1 10 ^3/uL (0-0.8); Eosinophils % (auto) 2.6 % (0.0-7.0); Hematocrit 20.4 % (41.0-53.0); Lymphocytes % (auto) 14.1 % (10.0-50.0); Mean Corpuscular Hemoglobin 26.5 pg (28.0-32.0); Mean Corpuscular Hgb Conc. 33.3 g/dL (32.0-36.0); Mean Corpuscular Volume 79.5 fL (80.0-100.0); Monocytes # (auto) 0.9 10 ^3/uL (0-1.3); Monocytes % (auto) 17.1 % (0.0-12.0); Neutrophils # (auto) 3.5 10 ^3/uL (1.6-8.6); Neutrophils % (auto) 65.1 % (37.0-80.0); Red Blood Cells 2.57 10^6/uL (4.5-5.90); White Blood Cell 5.4 10^3/uL (4.4-10.8)
[2023-01-31 14:54] LABS: Red Cell Distribution Width 20.6 % (11.8-14.3)
[2023-01-31 14:56] LABS: Hemoglobin 6.8 g/dL (13.5-17.5)
[2023-01-31 15:26] LABS: Albumin 2.8 g/dL (3.4-5.0); Potassium 3.9 mmol/L (3.5-5.1)
[2023-01-31 15:32] LABS: Bilirubin, Total 0.7 mg/dL (0.2-1.0); Total Protein 7.4 g/dL (6.4-8.2)
[2023-01-31] MEDS: HYDROcodone-ACET 5/325MG TAB PO PRN (16:36)
[2023-01-31 16:58] VITALS: BP 143/60
[2023-01-31] MEDS: [UNRECOGNIZED DRUG - OTHER] EACHEYE SCH (18:00)
[2023-01-31] MEDS: LATANOPROST 0.005 % OPTH(EYE) SOL 2.5ML EACHEYE SCH (18:42)
[2023-01-31 20:00] VITALS: BP 146/78
[2023-01-31] MEDS: ATORVASTATIN 20 MG TAB PO SCH (20:43)
[2023-01-31] MEDS ORDERED: EPOETIN ALFA-EPBX 10,000 UNIT/1ML VIAL SC ONE (21:00)
[2023-01-31 21:47] VITALS: BP 142/67
[2023-02-01 05:00] VITALS: BP 140/68
[2023-02-01] MEDS: SODIUM CHLOR 0.9% PF (SALINE LOCK) 10ML VIAL/SYR IV SCH ×2 (05:59→17:43)
[2023-02-01] MEDS: SEVELAMER 800 MG TAB PO SCH ×3 (08:27→18:00)
[2023-02-01 09:01] LABS: Basophils # (auto) 0.1 10 ^3/uL (0-0.2); Basophils % (auto) 1.1 % (0.0-2.0); Eosinophils # (auto) 0.3 10 ^3/uL (0-0.8); Eosinophils % (auto) 4.3 % (0.0-7.0); Hematocrit 22.6 % (41.0-53.0); Hemoglobin 7.6 g/dL (13.5-17.5); Lymphocytes # (auto) 1.2 10 ^3/uL (0.4-5.4); Lymphocytes % (auto) 16.1 % (10.0-50.0); Mean Corpuscular Hemoglobin 26.8 pg (28.0-32.0); Mean Corpuscular Hgb Conc. 33.5 g/dL (32.0-36.0); Monocytes # (auto) 1.2 10 ^3/uL (0-1.3); Monocytes % (auto) 15.7 % (0.0-12.0); Neutrophils # (auto) 4.6 10 ^3/uL (1.6-8.6); Neutrophils % (auto) 62.8 % (37.0-80.0); Nucleated Red Blood Cells % 0.2 %; Red Blood Cells 2.82 10^6/uL (4.5-5.90); White Blood Cell 7.3 10^3/uL (4.4-10.8)
[2023-02-01 09:41] LABS: BUN/Creatinine Ratio 5.1 (10.0-20.0); Potassium 4.5 mmol/L (3.5-5.1)
[2023-02-01 09:42] LABS: Calcium 8.2 mg/dL (8.5-10.1)
[2023-02-01] MEDS: PATIENTS OWN MEDICATION (Cholecalciferol (Vitamin D3) 1 TAB) PO SCH (10:00)
[2023-02-01] MEDS: BRIMONIDINE 0.2% OPTH Soln 5ml EACHEYE SCH (10:30)
[2023-02-01] MEDS: B-COMPLEX W/ C & FOLIC ACID(NEPHROVITE TAB) PO SCH (10:30)
[2023-02-01] MEDS: GABAPENTIN 100 MG CAP PO SCH (10:30)
[2023-02-01] MEDS: CARVEDILOL 3.125 MG TAB PO SCH (10:33)
[2023-02-01] MEDS: FAMOTIDINE (10MG/ML) 2ML VL IV SCH (10:34)
[2023-02-01 13:30] VITALS: BP 104/47
[2023-02-01 15:57] VITALS: BP 104/47
[2023-02-01 17:00] VITALS: BP 115/50
[2023-02-01] MEDS: LATANOPROST 0.005 % OPTH(EYE) SOL 2.5ML EACHEYE SCH (18:00)
[2023-02-01] MEDS: [UNRECOGNIZED DRUG - OTHER] EACHEYE SCH (18:00)
[2023-02-02] MEDS ORDERED: SODIUM CHL 0.9% 1000 ML BAG XX ONE (07:00)
[2023-02-02] MEDS ORDERED: EPOETIN ALFA-EPBX 10,000 UNIT/1ML VIAL SC ONE (21:00)
== END 2023-02-01 19:18 | DRG 291 ==
LOC: EDBD 16:03 → ER 16:03 → TELE 21:45 → TELE-WESTW 01-28 18:18
PROVIDERS: ADMIT Nurse Practitioner Family; ATTEND Nurse Practitioner
PROC: 30233N1 Transfusion of Nonautologous Red Blood Cells into Peripheral Vein, Percutaneous Approach (ICD-10-PCS; principal; 2023-01-28)
PROC: 5A1D70Z Performance of Urinary Filtration, Intermittent, Less than 6 Hours Per Day (ICD-10-PCS; 2023-01-31)
DX: I13.2 Hypertensive heart and chronic kidney disease with heart failure and with stage 5 chronic kidney disease, or end stage renal disease (principal); G93.41 Metabolic encephalopathy; N18.6 End stage renal disease; I50.23 Acute on chronic systolic (congestive) heart failure; E87.20 Acidosis, unspecified; N25.81 Secondary hyperparathyroidism of renal origin; D64.9 Anemia, unspecified; I42.8 Other cardiomyopathies; D63.1 Anemia in chronic kidney disease; E83.39 Other disorders of phosphorus metabolism; G89.4 Chronic pain syndrome; R79.89 Other specified abnormal findings of blood chemistry; E11.22 Type 2 diabetes mellitus with diabetic chronic kidney disease; I35.0 Nonrheumatic aortic (valve) stenosis; R26.81 Unsteadiness on feet; E11.51 Type 2 diabetes mellitus with diabetic peripheral angiopathy without gangrene; Z99.2 Dependence on renal dialysis; Z91.199 Patient's noncompliance with other medical treatment and regimen due to unspecified reason
CPT/HCPCS: 36415; 71045; 80048; 80053; 83880; 84484; 85025; 86850; 86900; 86901; 86922; 90935; 93306; 99291; G0378; J3490

== ENCOUNTER 2023-02-03 22:54 | Inpatient (IN) | payer MEDICARE, MEDICAID ==
[~2023-02-03] VITALS: Ht 160 cm; Wt 100.0 kg
[2023-02-04 10:38] LABS: Basophils # (auto) 0.1 10 ^3/uL (0-0.2); Basophils % (auto) 1.1 % (0.0-2.0); Eosinophils # (auto) 0.3 10 ^3/uL (0-0.8); Eosinophils % (auto) 4.2 % (0.0-7.0); Hematocrit 23.2 % (41.0-53.0); Hemoglobin 7.8 g/dL (13.5-17.5); Lymphocytes # (auto) 1.3 10 ^3/uL (0.4-5.4); Mean Corpuscular Hemoglobin 26.2 pg (28.0-32.0); Mean Corpuscular Hgb Conc. 33.4 g/dL (32.0-36.0); Mean Corpuscular Volume 78.5 fL (80.0-100.0); Monocytes % (auto) 13.7 % (0.0-12.0); Neutrophils # (auto) 4.4 10 ^3/uL (1.6-8.6); Red Blood Cells 2.96 10^6/uL (4.5-5.90); Red Cell Distribution Width 19.6 % (11.8-14.3)
[2023-02-04 10:49] LABS: Calcium 8.1 mg/dL (8.5-10.1); Potassium 4.4 mmol/L (3.5-5.1)
[2023-02-04 10:55] LABS: BUN/Creatinine Ratio 4.7 (10.0-20.0); Bilirubin, Total 0.7 mg/dL (0.2-1.0); Total Protein 7.7 g/dL (6.4-8.2)
[2023-02-04] MEDS ORDERED: cloNIDine HCL 0.1 MG TAB PO PRN (11:00)
[2023-02-04] MEDS ORDERED: HYDROcodone-ACET 5/325MG TAB PO PRN (11:00)
[2023-02-04] MEDS: BRIMONIDINE 0.2% OPTH Soln 5ml EACHEYE SCH (11:00)
[2023-02-04] MEDS ORDERED: NITROGLYCERIN 0.4 MG SL TAB SL PRN (11:00)
[2023-02-04] MEDS ORDERED: MORPHINE SULFATE INJ 2 MG/ml SYRG IV PRN ×2 (11:00)
[2023-02-04] MEDS ORDERED: ACETAMINOPHEN 325 MG TAB PO PRN (11:00)
[2023-02-04] MEDS ORDERED: prednisoLONE ACETATE 1% OPTH SUSP 5ML OP PRN (11:00)
[2023-02-04] MEDS ORDERED: HALOPERIDOL LACTATE 5 MG/ML INJ VIAL IM PRN (18:00)
[2023-02-04] MEDS ORDERED: PATIENTS OWN MEDICATION (Atorvastatin Calcium (Lipitor) 1 TAB) PO SCH (18:00)
[2023-02-04] MEDS: LATANOPROST 0.005 % OPTH(EYE) SOL 2.5ML EACHEYE SCH (19:59)
[2023-02-04] MEDS: CINACALCET HYDROCHLORIDE 30 MG TAB PO SCH (22:00)
[2023-02-04] MEDS: ATORVASTATIN 20 MG TAB PO SCH (22:51)
[2023-02-04] MEDS: GABAPENTIN 100 MG CAP PO SCH (22:51)
[2023-02-04] MEDS: HEPARIN SODIUM (PORCINE) 5000 UNITS/ML 1ML VIAL SC SCH (22:52)
[2023-02-05] MEDS: BRIMONIDINE 0.2% OPTH Soln 5ml EACHEYE SCH ×3 (00:29→22:24)
[2023-02-05 06:30] LABS: Basophils # (auto) 0.1 10 ^3/uL (0-0.2); Eosinophils # (auto) 0.3 10 ^3/uL (0-0.8); Mean Corpuscular Volume 79.6 fL (80.0-100.0); Neutrophils # (auto) 3.7 10 ^3/uL (1.6-8.6); Nucleated Red Blood Cells % 0.1 %
[2023-02-05 06:33] LABS: Basophils % (auto) 1.4 % (0.0-2.0); Hematocrit 22.3 % (41.0-53.0); Hemoglobin 7.5 g/dL (13.5-17.5); Lymphocytes # (auto) 1.1 10 ^3/uL (0.4-5.4); Lymphocytes % (auto) 19.4 % (10.0-50.0); Mean Corpuscular Hgb Conc. 33.8 g/dL (32.0-36.0); Monocytes # (auto) 0.6 10 ^3/uL (0-1.3); Monocytes % (auto) 10.7 % (0.0-12.0); Neutrophils % (auto) 63.5 % (37.0-80.0); Red Cell Distribution Width 19.7 % (11.8-14.3); White Blood Cell 5.9 10^3/uL (4.4-10.8)
[2023-02-05 07:04] LABS: Potassium 4.6 mmol/L (3.5-5.1)
[2023-02-05 07:15] LABS: Albumin 2.7 g/dL (3.4-5.0); BUN/Creatinine Ratio 4.6 (10.0-20.0); Bilirubin, Total 0.8 mg/dL (0.2-1.0); Calcium 7.9 mg/dL (8.5-10.1); Total Protein 7.5 g/dL (6.4-8.2)
[2023-02-05] MEDS ORDERED: PATIENTS OWN MEDICATION (Carvedilol 6.25 MG) PO SCH (10:00)
[2023-02-05] MEDS: amLODIPine BESYLATE 5 MG TAB PO SCH (11:08)
[2023-02-05] MEDS: GABAPENTIN 100 MG CAP PO SCH ×2 (11:08→22:16)
[2023-02-05] MEDS: CARVEDILOL 3.125 MG TAB PO SCH (11:08)
[2023-02-05] MEDS: NICOTINE 21MG/24 HR TOPICAL PATCH TD SCH (11:09)
[2023-02-05] MEDS: HEPARIN SODIUM (PORCINE) 5000 UNITS/ML 1ML VIAL SC SCH ×2 (11:09→22:19)
[2023-02-05] MEDS: prednisoLONE ACETATE 1% OPTH SUSP 5ML OP SCH ×3 (14:17→22:24)
[2023-02-05] MEDS ORDERED: LORazepam 2MG/ML-1ML VIAL IV ONE (16:15)
[2023-02-05] MEDS: LATANOPROST 0.005 % OPTH(EYE) SOL 2.5ML EACHEYE SCH (18:10)
[2023-02-05 22:00] VITALS: BP 159/65
[2023-02-05] MEDS ORDERED: CYCLOPENTOLATE HCL 1% OPTH(EYE) SOL 2ML LEFTEYE PRN (22:00)
[2023-02-05] MEDS: CINACALCET HYDROCHLORIDE 30 MG TAB PO SCH (22:00)
[2023-02-05] MEDS: ATORVASTATIN 20 MG TAB PO SCH (22:16)
[2023-02-06 05:00] VITALS: BP 158/64
[2023-02-06] MEDS: prednisoLONE ACETATE 1% OPTH SUSP 5ML OP SCH ×4 (05:42→23:15)
[2023-02-06] MEDS ORDERED: SODIUM CHL 0.9% 1000 ML BAG XX ONE (07:00)
[2023-02-06 08:52] VITALS: BP 149/71
[2023-02-06] MEDS: NICOTINE 21MG/24 HR TOPICAL PATCH TD SCH (09:53)
[2023-02-06] MEDS: CARVEDILOL 3.125 MG TAB PO SCH (10:00)
[2023-02-06] MEDS: GABAPENTIN 100 MG CAP PO SCH ×2 (10:00→23:16)
[2023-02-06] MEDS: HEPARIN SODIUM (PORCINE) 5000 UNITS/ML 1ML VIAL SC SCH ×2 (10:00→23:26)
[2023-02-06] MEDS: amLODIPine BESYLATE 5 MG TAB PO SCH (10:00)
[2023-02-06] MEDS: BRIMONIDINE 0.2% OPTH Soln 5ml EACHEYE SCH ×2 (11:45→23:15)
[2023-02-06 13:09] VITALS: BP 131/60
[2023-02-06] MEDS ORDERED: LIDOCAINE HCL 5 % TOP OINT 35 GM TOP ONE (14:00)
[2023-02-06] MEDS ORDERED: LIDOCAINE 2% (LOCAL ANESTH.) PF 5ml SDV IJ PRN (15:15)
[2023-02-06 16:47] LABS: BUN/Creatinine Ratio 4.6 (10.0-20.0); Calcium 7.8 mg/dL (8.5-10.1); Potassium 5.1 mmol/L (3.5-5.1)
[2023-02-06 16:54] LABS: % Iron Saturation 25.7 % (20-55)
[2023-02-06 17:11] VITALS: BP 145/92
[2023-02-06] MEDS: LATANOPROST 0.005 % OPTH(EYE) SOL 2.5ML EACHEYE SCH (18:12)
[2023-02-06] MEDS ORDERED: EPOETIN ALFA-EPBX 10,000 UNIT/1ML VIAL SC ONE (21:00)
[2023-02-06 22:00] VITALS: BP 166/78
[2023-02-06] MEDS: CINACALCET HYDROCHLORIDE 30 MG TAB PO SCH (23:00)
[2023-02-06] MEDS: MUPIROCIN 2% OINT 15gm or 22gm FOR MRSA NARES EACHNOSTRI SCH (23:15)
[2023-02-06] MEDS: ATORVASTATIN 20 MG TAB PO SCH (23:16)
[2023-02-07 05:00] VITALS: BP 144/58
[2023-02-07] MEDS: prednisoLONE ACETATE 1% OPTH SUSP 5ML OP SCH ×3 (06:00→19:52)
[2023-02-07 09:00] VITALS: BP 135/44
[2023-02-07] MEDS: GABAPENTIN 100 MG CAP PO SCH (09:02)
[2023-02-07] MEDS: CARVEDILOL 3.125 MG TAB PO SCH (09:02)
[2023-02-07] MEDS: amLODIPine BESYLATE 5 MG TAB PO SCH (09:03)
[2023-02-07] MEDS: HEPARIN SODIUM (PORCINE) 5000 UNITS/ML 1ML VIAL SC SCH (09:05)
[2023-02-07] MEDS: NICOTINE 21MG/24 HR TOPICAL PATCH TD SCH (09:06)
[2023-02-07 09:21] VITALS: BP 151/69
[2023-02-07] MEDS: MUPIROCIN 2% OINT 15gm or 22gm FOR MRSA NARES EACHNOSTRI SCH (09:48)
[2023-02-07] MEDS: BRIMONIDINE 0.2% OPTH Soln 5ml EACHEYE SCH (11:34)
[2023-02-07 13:00] VITALS: BP 141/66
[2023-02-07 17:00] VITALS: BP 144/66
[2023-02-07 18:41] VITALS: BP 141/66
[2023-02-07] MEDS: LATANOPROST 0.005 % OPTH(EYE) SOL 2.5ML EACHEYE SCH (19:52)
== END 2023-02-07 20:34 | DRG 70 ==
LOC: EDBD 22:54 → ER 22:54 → OBSVTOIN 02-04 10:58 → TELE 02-04 10:58 → TELE-EAST 02-05 18:20
PROVIDERS: ADMIT Nurse Practitioner Family; ATTEND Nurse Practitioner Family
PROC: 5A1D70Z Performance of Urinary Filtration, Intermittent, Less than 6 Hours Per Day (ICD-10-PCS; principal; 2023-02-06)
DX: G93.41 Metabolic encephalopathy (principal); N18.6 End stage renal disease; I12.0 Hypertensive chronic kidney disease with stage 5 chronic kidney disease or end stage renal disease; E44.0 Moderate protein-calorie malnutrition; E66.01 Morbid (severe) obesity due to excess calories; E78.5 Hyperlipidemia, unspecified; F03.90 Unspecified dementia, unspecified severity, without behavioral disturbance, psychotic disturbance, mood disturbance, and anxiety; F17.200 Nicotine dependence, unspecified, uncomplicated; I73.9 Peripheral vascular disease, unspecified; H40.9 Unspecified glaucoma; H54.7 Unspecified visual loss; F12.90 Cannabis use, unspecified, uncomplicated; Z99.2 Dependence on renal dialysis; D63.1 Anemia in chronic kidney disease; Z68.39 Body mass index [BMI] 39.0-39.9, adult; Z89.511 Acquired absence of right leg below knee; Z89.512 Acquired absence of left leg below knee
CPT/HCPCS: 36415; 70450; 70486; 70551; 71045; 80048; 80053; 82140; 82728; 82962; 83540; 83550; 83605; 85025; 87040; 87081; 87340; 90935; 97110; 97163; 97530; G0378; J2001

== ENCOUNTER 2023-07-28 13:31 | Inpatient (IN) | payer MEDICARE, MEDICAID ==
[~2023-07-28] VITALS: Ht 172.7 cm; Wt 97.0 kg
[2023-07-28] MEDS ORDERED: SODIUM CHLORIDE 0.9% 1,000 ML IV ONE (14:00)
[2023-07-28 14:45] VITALS: PULSE 75; RESP 14; O2SAT 98
[2023-07-28 18:15] LABS: Basophils # (auto) 0.1 10 ^3/uL (0-0.2); Lymphocytes # (auto) 0.7 10 ^3/uL (0.4-5.4); Neutrophils # (auto) 6.6 10 ^3/uL (1.6-8.6); Red Blood Cells 1.93 10^6/uL (4.5-5.90)
[2023-07-28 18:16] LABS: Basophils % (auto) 0.7 % (0.0-2.0); Eosinophils # (auto) 0.9 10 ^3/uL (0-0.8); Eosinophils % (auto) 10.1 % (0.0-7.0); Lymphocytes % (auto) 8.1 % (10.0-50.0); Monocytes # (auto) 0.7 10 ^3/uL (0-1.3); Monocytes % (auto) 7.7 % (0.0-12.0); Neutrophils % (auto) 73.4 % (37.0-80.0); Nucleated Red Blood Cells % 0.1 %
[2023-07-28 18:35] LABS: Albumin 3.1 g/dL (3.2-4.8); Alkaline Phosphatase 72 U/L (46-116); Anion Gap 11 (5-15); Aspartate Aminotransferase 9 U/L (13-40); BUN/Creatinine Ratio 10.8 (10.0-20.0); Calcium 8.2 mg/dL (8.7-10.4); Carbon Dioxide 29 mmol/L (20-30); Chloride 99 mmol/L (98-107); Glucose 89 mg/dL (74-106); INR 1.24 (0.9-1.15); Magnesium 1.9 mg/dL (1.6-2.6); Partial Thromboplastin Time 32.1 SEC (24.5-34.5); Potassium 4.8 mmol/L (3.5-5.1); Prothrombin Time 12.8 sec (9.3-11.8); Sodium 139 mmol/L (136-145)
[2023-07-28 18:36] LABS: Bilirubin, Total 0.3 mg/dL (0.2-1.0); Total Protein 6.3 g/dL (5.7-8.2)
[2023-07-28 19:04] LABS: Alanine Aminotransferase 9 U/L (7-40)
[2023-07-28 19:06] LABS: Blood Urea Nitrogen 82 mg/dL (9-23); Hemoglobin 4.8 g/dL (13.5-17.5); Red Cell Distribution Width 20.1 % (11.8-14.3)
[2023-07-28 19:30] VITALS: PULSE 80; RESP 18; O2SAT 100
[2023-07-28 20:15] LABS: % Iron Saturation 14.7 % (20-55)
[2023-07-28] MEDS ORDERED: ACETAMINOPHEN IV 1000 MG/100ML (10MG/ML) IV ONE (22:00)
[2023-07-28] MEDS ORDERED: HYDROcodone-ACET 5/325MG TAB PO PRN (22:15)
[2023-07-28] MEDS ORDERED: DOCUSATE SOD 100 MG CAP PO PRN (22:15)
[2023-07-28] MEDS ORDERED: MORPHINE SULFATE INJ 2 MG/ml SYRG IV PRN (22:15)
[2023-07-28] MEDS ORDERED: ONDANSETRON HCL 4 MG/2 ML VIAL IV PRN (22:15)
[2023-07-28] MEDS ORDERED: ACETAMINOPHEN 325 MG TAB PO PRN (22:15)
[2023-07-28 22:35] VITALS: BP 110/32; PULSE 79; RESP 20; TEMP 98.6
[2023-07-28 23:05] VITALS: BP 96/46; PULSE 79; RESP 18; TEMP 97.5
[2023-07-29] VITALS (20 sets, daily range): BP systolic 94–120; BP diastolic 49–64; PULSE 73–83; RESP 14–18; TEMP 97.4–98.5; O2SAT 95–100
[2023-07-29] MEDS ORDERED: NITR0.4S29 SL (01:35)
[2023-07-29] MEDS ORDERED: CRAN125T PO (01:35)
[2023-07-29] MEDS ORDERED: ZINC220T6 PO (01:35)
[2023-07-29] MEDS ORDERED: DOCU-94 PO (01:35)
[2023-07-29] MEDS ORDERED: FER325T PO (01:35)
[2023-07-29 02:10] LABS: Potassium 3.1 mmol/L (3.5-5.1)
[2023-07-29 02:11] LABS: Anion Gap 11 (5-15)
[2023-07-29 02:16] LABS: Glucose 64 mg/dL (74-106)
[2023-07-29 02:17] LABS: Blood Urea Nitrogen 46 mg/dL (9-23)
[2023-07-29 02:18] LABS: BUN/Creatinine Ratio 9.5 (10.0-20.0); Carbon Dioxide 19 mmol/L (20-30); Chloride 116 mmol/L (98-107); Sodium 146 mmol/L (136-145)
[2023-07-29 02:19] LABS: Calcium 5.1 mg/dL (8.7-10.4)
[2023-07-29] MEDS: ENOXAPARIN SOD 30 MG/0.3 ML SYRINGE SC SCH (08:54)
[2023-07-29] MEDS ORDERED: POTASSIUM CHL 20MEQ/100ML 100 ML IV SCH (11:30)
[2023-07-29] MEDS ORDERED: SODIUM BICARBONATE 50ML VIAL 50 ML in D5W 5% 1,000 ML IV SCH (11:30)
[2023-07-29 12:27] LABS: Basophils # (auto) 0.1 10 ^3/uL (0-0.2); Lymphocytes # (auto) 0.7 10 ^3/uL (0.4-5.4); Nucleated Red Blood Cells % 0.1 %
[2023-07-29 12:30] LABS: Basophils % (auto) 0.8 % (0.0-2.0); Eosinophils # (auto) 0.9 10 ^3/uL (0-0.8); Eosinophils % (auto) 10.1 % (0.0-7.0); Lymphocytes % (auto) 7.6 % (10.0-50.0); Mean Corpuscular Hemoglobin 25.7 pg (28.0-32.0); Mean Corpuscular Hgb Conc. 32.7 g/dL (32.0-36.0); Mean Corpuscular Volume 78.4 fL (80.0-100.0); Monocytes # (auto) 0.9 10 ^3/uL (0-1.3); Neutrophils # (auto) 6.7 10 ^3/uL (1.6-8.6); Neutrophils % (auto) 71.5 % (37.0-80.0); Red Blood Cells 2.55 10^6/uL (4.5-5.90); Red Cell Distribution Width 19.6 % (11.8-14.3); White Blood Cell 9.3 10^3/uL (4.4-10.8)
[2023-07-29 12:36] LABS: Hemoglobin 6.5 g/dL (13.5-17.5)
[2023-07-29 12:38] LABS: Albumin 3.2 g/dL (3.2-4.8); Alkaline Phosphatase 70 U/L (46-116); Anion Gap 14 (5-15); Aspartate Aminotransferase 14 U/L (13-40); BUN/Creatinine Ratio 6.5 (10.0-20.0); Blood Urea Nitrogen 51 mg/dL (9-23); Calcium 8.3 mg/dL (8.7-10.4); Carbon Dioxide 24 mmol/L (20-30); Chloride 99 mmol/L (98-107); Glucose 88 mg/dL (74-106); Sodium 137 mmol/L (136-145)
[2023-07-29 12:39] LABS: Bilirubin, Total 0.2 mg/dL (0.2-1.0); Phosphorus 5.6 mg/dL (2.4-5.1)
[2023-07-29 12:47] LABS: Potassium 5.3 mmol/L (3.5-5.1)
[2023-07-29 12:48] LABS: Alanine Aminotransferase < 9 U/L (7-40)
[2023-07-30] VITALS (8 sets, daily range): BP systolic 104–126; BP diastolic 52–77; PULSE 72–83; RESP 16–20; TEMP 97.4–98.5; O2SAT 96–100
[2023-07-30] MEDS ORDERED: OMNIPAQUE 12mg/ml 500ml ORAL SOLUTION PO ONE (07:48)
[2023-07-30] MEDS: ENOXAPARIN SOD 30 MG/0.3 ML SYRINGE SC SCH (11:34)
[2023-07-30] MEDS ORDERED: SODIUM CHL 0.9% 1000 ML BAG XX ONE (13:00)
[2023-07-30] MEDS ORDERED: LIDOCAINE 1% HCL (LOCAL ANESTH.) INJ 20ML MDV ID ONE (13:00)
[2023-07-30 13:13] LABS: Basophils # (auto) 0.1 10 ^3/uL (0-0.2); Eosinophils # (auto) 0.6 10 ^3/uL (0-0.8); Hemoglobin 7.6 g/dL (13.5-17.5); Lymphocytes # (auto) 0.6 10 ^3/uL (0.4-5.4); Mean Corpuscular Hgb Conc. 32.6 g/dL (32.0-36.0); Monocytes # (auto) 0.4 10 ^3/uL (0-1.3); Neutrophils # (auto) 3.8 10 ^3/uL (1.6-8.6)
[2023-07-30 13:14] LABS: Eosinophils % (auto) 11.4 % (0.0-7.0); Hematocrit 23.3 % (41.0-53.0); Lymphocytes % (auto) 10.5 % (10.0-50.0); Mean Corpuscular Hemoglobin 26.1 pg (28.0-32.0); Mean Corpuscular Volume 80.1 fL (80.0-100.0); Monocytes % (auto) 7.3 % (0.0-12.0); Neutrophils % (auto) 69.8 % (37.0-80.0); Red Blood Cells 2.91 10^6/uL (4.5-5.90); White Blood Cell 5.5 10^3/uL (4.4-10.8)
[2023-07-30] MEDS ORDERED: HYDROcodone-ACET 5/325MG TAB PO PRN (13:15)
[2023-07-30] MEDS ORDERED: cloNIDine HCL 0.1 MG TAB PO PRN (13:15)
[2023-07-30 13:16] LABS: Red Cell Distribution Width 20.8 % (11.8-14.3)
[2023-07-30 13:19] LABS: Albumin 3.2 g/dL (3.2-4.8); Alkaline Phosphatase 59 U/L (46-116); Anion Gap 9 (5-15); Aspartate Aminotransferase < 8 U/L (13-40); BUN/Creatinine Ratio 10.1 (10.0-20.0); Bilirubin, Total 0.5 mg/dL (0.2-1.0); Calcium 8.1 mg/dL (8.7-10.4); Carbon Dioxide 28 mmol/L (20-30); Chloride 100 mmol/L (98-107); Glucose 78 mg/dL (74-106); Potassium 4.9 mmol/L (3.5-5.1); Sodium 137 mmol/L (136-145); Total Protein 6.7 g/dL (5.7-8.2)
[2023-07-30 13:20] LABS: Alanine Aminotransferase < 9 U/L (7-40); Blood Urea Nitrogen 74 mg/dL (9-23)
[2023-07-30] MEDS: LACTULOSE 20Gm/30ML SOLN PO SCH (17:55)
[2023-07-30] MEDS: LATANOPROST 0.005 % OPTH(EYE) SOL 2.5ML EACHEYE SCH (19:34)
[2023-07-30] MEDS ORDERED: EPOETIN ALFA-EPBX 10,000 UNIT/1ML VIAL SC ONE (21:00)
[2023-07-30] MEDS: MUPIROCIN 2% OINT 15gm or 22gm FOR MRSA NARES EACHNOSTRI SCH (21:05)
[2023-07-30] MEDS: FERROUS SULFATE 325mg EC TAB PO SCH (21:28)
[2023-07-30] MEDS: DOCUSATE SOD 100 MG CAP PO SCH (21:28)
[2023-07-30] MEDS: GABAPENTIN 100 MG CAP PO SCH (21:28)
[2023-07-31] VITALS (8 sets, daily range): BP systolic 100–114; BP diastolic 48–59; PULSE 75–82; RESP 17–21; TEMP 97.7–98.6; O2SAT 98–100
[2023-07-31] MEDS: LACTULOSE 20Gm/30ML SOLN PO SCH ×5 (05:15→22:27)
[2023-07-31 06:53] LABS: Hemoglobin 8.7 g/dL (13.5-17.5); Mean Corpuscular Hemoglobin 26.1 pg (28.0-32.0); Monocytes # (auto) 0.8 10 ^3/uL (0-1.3)
[2023-07-31 07:02] LABS: Basophils # (auto) 0.1 10 ^3/uL (0-0.2); Basophils % (auto) 0.8 % (0.0-2.0); Eosinophils # (auto) 0.7 10 ^3/uL (0-0.8); Eosinophils % (auto) 10.2 % (0.0-7.0); Hematocrit 27.4 % (41.0-53.0); Lymphocytes # (auto) 0.6 10 ^3/uL (0.4-5.4); Lymphocytes % (auto) 8.4 % (10.0-50.0); Mean Corpuscular Hgb Conc. 31.7 g/dL (32.0-36.0); Mean Corpuscular Volume 82.5 fL (80.0-100.0); Monocytes % (auto) 11.7 % (0.0-12.0); Neutrophils # (auto) 4.7 10 ^3/uL (1.6-8.6); Neutrophils % (auto) 68.9 % (37.0-80.0); Red Blood Cells 3.32 10^6/uL (4.5-5.90); White Blood Cell 6.9 10^3/uL (4.4-10.8)
[2023-07-31 07:06] LABS: Albumin 3.3 g/dL (3.2-4.8); Alkaline Phosphatase 64 U/L (46-116); Anion Gap 10 (5-15); Aspartate Aminotransferase 8 U/L (13-40); BUN/Creatinine Ratio 7.8 (10.0-20.0); Bilirubin, Total 0.4 mg/dL (0.2-1.0); Calcium 8.9 mg/dL (8.5-10.1); Carbon Dioxide 30 mmol/L (20-30); Chloride 99 mmol/L (98-107); Glucose 68 mg/dL (74-106); Potassium 4.9 mmol/L (3.5-5.1); Sodium 139 mmol/L (136-145)
[2023-07-31 07:08] LABS: Alanine Aminotransferase < 9 U/L (7-40); Blood Urea Nitrogen 53 mg/dL (9-23)
[2023-07-31] MEDS: ENOXAPARIN SOD 30 MG/0.3 ML SYRINGE SC SCH (09:37)
[2023-07-31] MEDS: DOCUSATE SOD 100 MG CAP PO SCH ×2 (10:00→22:00)
[2023-07-31] MEDS: GABAPENTIN 100 MG CAP PO SCH ×2 (10:30→22:21)
[2023-07-31] MEDS: PANTOPRAZOLE 40 MG/10 ML VIAL INJ IV SCH (10:30)
[2023-07-31] MEDS: CARVEDILOL 3.125 MG TAB PO SCH (10:30)
[2023-07-31] MEDS: FERROUS SULFATE 325mg EC TAB PO SCH ×2 (10:30→22:21)
[2023-07-31] MEDS: MUPIROCIN 2% OINT 15gm or 22gm FOR MRSA NARES EACHNOSTRI SCH ×2 (10:34→22:27)
[2023-07-31 14:27] LABS: Body Fluid Polymorphonuclear 18 % (0-25)
[2023-07-31 15:02] LABS: Body Fluid Red Blood Cells 56500 CUMM (0-2000)
[2023-07-31 15:03] LABS: Body Fluid White Blood Cells 450 CUMM (0-200)
[2023-07-31] MEDS: LATANOPROST 0.005 % OPTH(EYE) SOL 2.5ML EACHEYE SCH (17:58)
[2023-08-01] VITALS (7 sets, daily range): BP systolic 97–114; BP diastolic 44–59; PULSE 74–83; RESP 16–18; TEMP 97.7–98.9; O2SAT 97–100
[2023-08-01] MEDS: LACTULOSE 20Gm/30ML SOLN PO SCH ×3 (04:35→17:47)
[2023-08-01] MEDS ORDERED: SODIUM CHL 0.9% 1000 ML BAG XX ONE (07:00)
[2023-08-01 09:06] LABS: Protein, Body Fluid 3.6 g/dL (.)
[2023-08-01] MEDS: DOCUSATE SOD 100 MG CAP PO SCH ×4 (09:55→22:46)
[2023-08-01] MEDS: ENOXAPARIN SOD 30 MG/0.3 ML SYRINGE SC SCH (09:55)
[2023-08-01] MEDS: PANTOPRAZOLE 40 MG/10 ML VIAL INJ IV SCH (09:55)
[2023-08-01] MEDS: CARVEDILOL 3.125 MG TAB PO SCH (09:57)
[2023-08-01] MEDS: GABAPENTIN 100 MG CAP PO SCH ×2 (09:58→22:46)
[2023-08-01] MEDS: FERROUS SULFATE 325mg EC TAB PO SCH ×2 (09:58→22:47)
[2023-08-01] MEDS: MUPIROCIN 2% OINT 15gm or 22gm FOR MRSA NARES EACHNOSTRI SCH ×3 (10:05→22:46)
[2023-08-01] MEDS ORDERED: MAGNESIUM CITRATE SOLUTION 300 ML BTL PO ONE ×2 (14:00→20:00)
[2023-08-01] MEDS ORDERED: LIDOCAINE HCL 2% TOP JELLY 5ML TOP ONE (15:00)
[2023-08-01] MEDS ORDERED: LIDOCAINE HCL 5 % TOP OINT 35 GM TOP ONE (16:45)
[2023-08-01] MEDS: LATANOPROST 0.005 % OPTH(EYE) SOL 2.5ML EACHEYE SCH (17:46)
[2023-08-01] MEDS ORDERED: ALBUMIN 25% 100 ML IV STA ×2 (18:53→19:07)
[2023-08-01] MEDS: EPOETIN ALFA-EPBX 10,000 UNIT/1ML VIAL SC ONE ×2 (21:00→22:46)
[2023-08-02] VITALS (9 sets, daily range): BP systolic 111–134; BP diastolic 25–63; PULSE 72–87; RESP 17–20; TEMP 97.8–99.1; O2SAT 96–100
[2023-08-02] MEDS ORDERED: GOLYTELY 4L KIT PO ONE ×2 (06:00→14:00)
[2023-08-02] MEDS: LACTULOSE 20Gm/30ML SOLN PO SCH ×4 (06:00→18:00)
[2023-08-02 09:32] LABS: Basophils # (auto) 0.1 10 ^3/uL (0-0.2); Lymphocytes # (auto) 0.5 10 ^3/uL (0.4-5.4); Monocytes # (auto) 0.7 10 ^3/uL (0-1.3); Nucleated Red Blood Cells % 0.1 %
[2023-08-02 09:34] LABS: Basophils % (auto) 1.1 % (0.0-2.0); Eosinophils # (auto) 0.7 10 ^3/uL (0-0.8); Eosinophils % (auto) 12.7 % (0.0-7.0); Hematocrit 21.6 % (41.0-53.0); Lymphocytes % (auto) 8.5 % (10.0-50.0); Mean Corpuscular Hemoglobin 25.9 pg (28.0-32.0); Mean Corpuscular Hgb Conc. 32.3 g/dL (32.0-36.0); Mean Corpuscular Volume 80.3 fL (80.0-100.0); Monocytes % (auto) 11.7 % (0.0-12.0); Neutrophils # (auto) 3.8 10 ^3/uL (1.6-8.6); Red Blood Cells 2.69 10^6/uL (4.5-5.90); White Blood Cell 5.8 10^3/uL (4.4-10.8)
[2023-08-02 09:37] LABS: Red Cell Distribution Width 21.1 % (11.8-14.3)
[2023-08-02 09:57] LABS: Albumin 3.4 g/dL (3.2-4.8); Alkaline Phosphatase 52 U/L (46-116); Anion Gap 10 (5-15); Aspartate Aminotransferase 9 U/L (13-40); BUN/Creatinine Ratio 7.7 (10.0-20.0); Bilirubin, Total 0.4 mg/dL (0.2-1.0); Blood Urea Nitrogen 41 mg/dL (9-23); Calcium 8.8 mg/dL (8.5-10.1); Carbon Dioxide 29 mmol/L (20-30); Chloride 98 mmol/L (98-107); Glucose 81 mg/dL (74-106); Potassium 4.4 mmol/L (3.5-5.1); Sodium 137 mmol/L (136-145); Total Protein 6.7 g/dL (5.7-8.2)
[2023-08-02 10:08] LABS: Alanine Aminotransferase < 9 U/L (7-40)
[2023-08-02] MEDS: PANTOPRAZOLE 40 MG/10 ML VIAL INJ IV SCH (10:44)
[2023-08-02] MEDS: MUPIROCIN 2% OINT 15gm or 22gm FOR MRSA NARES EACHNOSTRI SCH ×2 (10:44→22:00)
[2023-08-02] MEDS: GABAPENTIN 100 MG CAP PO SCH ×2 (10:45→22:00)
[2023-08-02] MEDS: FERROUS SULFATE 325mg EC TAB PO SCH ×2 (10:45→22:00)
[2023-08-02] MEDS: CARVEDILOL 3.125 MG TAB PO SCH (10:47)
[2023-08-02] MEDS: ENOXAPARIN SOD 30 MG/0.3 ML SYRINGE SC SCH (10:49)
[2023-08-02] MEDS: DOCUSATE SOD 100 MG CAP PO SCH ×2 (10:50→22:00)
[2023-08-02] MEDS: LATANOPROST 0.005 % OPTH(EYE) SOL 2.5ML EACHEYE SCH (18:00)
[2023-08-03] VITALS (18 sets, daily range): BP systolic 102–132; BP diastolic 52–82; PULSE 76–102; RESP 15–19; TEMP 97.7–99.4; O2SAT 93–100
[2023-08-03] MEDS: LACTULOSE 20Gm/30ML SOLN PO SCH ×5 (06:00→23:32)
[2023-08-03] MEDS ORDERED: GOLYTELY 4L KIT PO ONE (06:00)
[2023-08-03] MEDS ORDERED: MAGNESIUM CITRATE SOLUTION 300 ML BTL PO ONE ×2 (06:00)
[2023-08-03] MEDS ORDERED: NALOXONE HCL 0.4 MG/ML VIAL ONE (08:07)
[2023-08-03] MEDS ORDERED: FLUMAZENIL 0.1 MG/ML INJ 10ML MDV IV ONE (08:07)
[2023-08-03] MEDS: FERROUS SULFATE 325mg EC TAB PO SCH ×2 (10:00→22:16)
[2023-08-03] MEDS: DOCUSATE SOD 100 MG CAP PO SCH ×2 (11:18→22:16)
[2023-08-03] MEDS: GABAPENTIN 100 MG CAP PO SCH ×2 (11:18→22:16)
[2023-08-03] MEDS: MUPIROCIN 2% OINT 15gm or 22gm FOR MRSA NARES EACHNOSTRI SCH ×2 (11:18→22:16)
[2023-08-03] MEDS: PANTOPRAZOLE 40 MG/10 ML VIAL INJ IV SCH (11:18)
[2023-08-03] MEDS: CARVEDILOL 3.125 MG TAB PO SCH (11:19)
[2023-08-03 11:41] LABS: Basophils # (auto) 0.1 10 ^3/uL (0-0.2); Lymphocytes # (auto) 0.6 10 ^3/uL (0.4-5.4); Neutrophils # (auto) 3.9 10 ^3/uL (1.6-8.6)
[2023-08-03 11:43] LABS: Basophils % (auto) 1.5 % (0.0-2.0); Eosinophils # (auto) 0.7 10 ^3/uL (0-0.8); Eosinophils % (auto) 12.2 % (0.0-7.0); Hematocrit 23.2 % (41.0-53.0); Hemoglobin 7.4 g/dL (13.5-17.5); Lymphocytes % (auto) 10.6 % (10.0-50.0); Mean Corpuscular Hemoglobin 25.7 pg (28.0-32.0); Mean Corpuscular Volume 80.2 fL (80.0-100.0); Monocytes # (auto) 0.6 10 ^3/uL (0-1.3); Monocytes % (auto) 10.8 % (0.0-12.0); Neutrophils % (auto) 64.9 % (37.0-80.0); Red Blood Cells 2.89 10^6/uL (4.5-5.90); Red Cell Distribution Width 20.1 % (11.8-14.3)
[2023-08-03] MEDS ORDERED: PROPOFOL 10 MG/ML 20 ML IV ONE (14:15)
[2023-08-03] MEDS ORDERED: LIDOCAINE 2% (LOCAL ANESTH.) PF 5ml SDV ONE (14:15)
[2023-08-03] MEDS ORDERED: ePHEDrine SULFATE 50 MG/ML AMP ONE (14:48)
[2023-08-03] MEDS ORDERED: LABETALOL HCL 5 MG/ML 4ML SYRINGE IV PRN (15:45)
[2023-08-03] MEDS ORDERED: MORPHINE SULFATE INJ 2 MG/ml SYRG IV PRN (15:45)
[2023-08-03] MEDS ORDERED: MIDAZOLAM HCL 2MG/2ML 2ml VIAL (1mg/ml) IV PRN (15:45)
[2023-08-03] MEDS ORDERED: ONDANSETRON HCL 4 MG/2 ML VIAL IV PRN (15:45)
[2023-08-03] MEDS ORDERED: ePHEDrine SULFATE 50 MG/ML AMP IV PRN (15:45)
[2023-08-03] MEDS: SUCRALFATE 1 GM/10 ML ORAL SUSP GT SCH ×2 (18:50→22:16)
[2023-08-03] MEDS: LATANOPROST 0.005 % OPTH(EYE) SOL 2.5ML EACHEYE SCH (18:50)
[2023-08-04 05:00] VITALS: BP 101/44; PULSE 80; RESP 18; TEMP 97.9; O2SAT 95
[2023-08-04] MEDS: LACTULOSE 20Gm/30ML SOLN PO SCH ×2 (05:56→12:00)
[2023-08-04] MEDS: SUCRALFATE 1 GM/10 ML ORAL SUSP GT SCH ×2 (06:08→11:30)
[2023-08-04] MEDS ORDERED: SODIUM CHL 0.9% 1000 ML BAG XX ONE (07:00)
[2023-08-04 08:00] VITALS: BP 109/56; PULSE 77; RESP 21; TEMP 98.4; O2SAT 100
[2023-08-04] MEDS: PANTOPRAZOLE 40 MG/10 ML VIAL INJ IV SCH (10:00)
[2023-08-04] MEDS: CARVEDILOL 3.125 MG TAB PO SCH (10:00)
[2023-08-04] MEDS: MUPIROCIN 2% OINT 15gm or 22gm FOR MRSA NARES EACHNOSTRI SCH (10:00)
[2023-08-04] MEDS: GABAPENTIN 100 MG CAP PO SCH (10:00)
[2023-08-04] MEDS: DOCUSATE SOD 100 MG CAP PO SCH (10:00)
[2023-08-04] MEDS: FERROUS SULFATE 325mg EC TAB PO SCH (10:00)
[2023-08-04 12:00] VITALS: BP 118/61; PULSE 76; RESP 20; TEMP 97.7; O2SAT 93
[2023-08-04 15:24] VITALS: BP 118/57; PULSE 74; RESP 20; TEMP 97.7; O2SAT 100
[2023-08-04 15:50] LABS: Basophils # (auto) 0 10 ^3/uL (0-0.2); Basophils % (auto) 0.9 % (0.0-2.0); Eosinophils # (auto) 0.5 10 ^3/uL (0-0.8); Eosinophils % (auto) 10.1 % (0.0-7.0); Hematocrit 23.1 % (41.0-53.0); Hemoglobin 7.5 g/dL (13.5-17.5); Lymphocytes # (auto) 0.4 10 ^3/uL (0.4-5.4); Lymphocytes % (auto) 8.1 % (10.0-50.0); Mean Corpuscular Hemoglobin 26.4 pg (28.0-32.0); Mean Corpuscular Hgb Conc. 32.3 g/dL (32.0-36.0); Mean Corpuscular Volume 81.7 fL (80.0-100.0); Monocytes # (auto) 0.7 10 ^3/uL (0-1.3); Monocytes % (auto) 12.8 % (0.0-12.0); Neutrophils # (auto) 3.5 10 ^3/uL (1.6-8.6); Neutrophils % (auto) 68.1 % (37.0-80.0); Nucleated Red Blood Cells % 0.1 %; Red Blood Cells 2.83 10^6/uL (4.5-5.90); White Blood Cell 5.2 10^3/uL (4.4-10.8)
[2023-08-04 15:51] LABS: Red Cell Distribution Width 20.3 % (11.8-14.3)
[2023-08-04 16:00] VITALS: BP 109/58; PULSE 76; RESP 20; TEMP 98.6; O2SAT 100
[2023-08-04 16:52] LABS: Anisocytosis Slight; Platelet Estimate Adequate
[2023-08-04] MEDS ORDERED: EPOETIN ALFA-EPBX 10,000 UNIT/1ML VIAL SC ONE (21:00)
== END 2023-08-04 18:50 | DRG 377 ==
LOC: ER 13:31 → EDBD 13:31 → TELE 22:15 → TELE-EAST 23:49
PROVIDERS: ADMIT Internal Medicine; ATTEND Nurse Practitioner
PROC: 30233N1 Transfusion of Nonautologous Red Blood Cells into Peripheral Vein, Percutaneous Approach (ICD-10-PCS; 2023-07-28)
PROC: 5A1D70Z Performance of Urinary Filtration, Intermittent, Less than 6 Hours Per Day (ICD-10-PCS; 2023-07-30)
PROC: 0W993ZZ Drainage of Right Pleural Cavity, Percutaneous Approach (ICD-10-PCS; 2023-07-31)
PROC: 5A1D70Z Performance of Urinary Filtration, Intermittent, Less than 6 Hours Per Day (ICD-10-PCS; 2023-08-01)
PROC: 0DB78ZX Excision of Stomach, Pylorus, Via Natural or Artificial Opening Endoscopic, Diagnostic (ICD-10-PCS; 2023-08-03)
PROC: 30233K1 Transfusion of Nonautologous Frozen Plasma into Peripheral Vein, Percutaneous Approach (ICD-10-PCS; 2023-08-03)
PROC: 0DBH8ZX Excision of Cecum, Via Natural or Artificial Opening Endoscopic, Diagnostic (ICD-10-PCS; principal; 2023-08-03 14:33)
PROC: 0DBL8ZX Excision of Transverse Colon, Via Natural or Artificial Opening Endoscopic, Diagnostic (ICD-10-PCS; 2023-08-03 14:33)
PROC: 5A1D70Z Performance of Urinary Filtration, Intermittent, Less than 6 Hours Per Day (ICD-10-PCS; 2023-08-04)
DX: K29.01 Acute gastritis with bleeding (principal); N18.6 End stage renal disease; I12.0 Hypertensive chronic kidney disease with stage 5 chronic kidney disease or end stage renal disease; J81.1 Chronic pulmonary edema; E87.20 Acidosis, unspecified; J90 Pleural effusion, not elsewhere classified; E87.5 Hyperkalemia; D63.1 Anemia in chronic kidney disease; E11.22 Type 2 diabetes mellitus with diabetic chronic kidney disease; E78.5 Hyperlipidemia, unspecified; E83.39 Other disorders of phosphorus metabolism; F17.210 Nicotine dependence, cigarettes, uncomplicated; H54.7 Unspecified visual loss; H91.90 Unspecified hearing loss, unspecified ear; I48.91 Unspecified atrial fibrillation; I95.9 Hypotension, unspecified; R09.89 Other specified symptoms and signs involving the circulatory and respiratory systems; R79.89 Other specified abnormal findings of blood chemistry; B95.62 Methicillin resistant Staphylococcus aureus infection as the cause of diseases classified elsewhere; K44.9 Diaphragmatic hernia without obstruction or gangrene; K63.5 Polyp of colon; M89.8X9 Other specified disorders of bone, unspecified site; Z82.49 Family history of ischemic heart disease and other diseases of the circulatory system; Z83.3 Family history of diabetes mellitus; Z89.511 Acquired absence of right leg below knee; Z89.512 Acquired absence of left leg below knee; Z99.2 Dependence on renal dialysis; Z91.158 Patient's noncompliance with renal dialysis for other reason; K29.80 Duodenitis without bleeding
CPT/HCPCS: 36415; 71045; 71250; 74176; 76604; 76705; 76942; 80048; 80053; 82270; 82378; 82728; 83540; 83550; 83615; 83735; 83986; 84100; 85025; 85045; 85610; 85730; 86850; 86900; 86901; 86922; 87070; 87081; 87205; 87340; 89051; 90935; 93005; 99291; C9113; G0378; J2001; J2704; P9047

== ENCOUNTER 2023-11-15 10:22 | Inpatient (IN) | payer MEDICARE, MEDICAID ==
[~2023-11-15] VITALS: Ht 152.4 cm; Wt 86.0 kg
[~2023-11-15 10:22] MED LIST changes: -ACET-1881 PO; -AML5T PO; -ATO40T PO; -BISA10SU45 RE; -BRIM0.2S17 EACHEYE; -CHOL20007 PO; -CINA30TA2 PO; +CRAN125T PO; +DOCU-94 PO; +FER325T PO; -MAGNSUS48 PO; -NETA0.02 EACHEYE; +NITR0.4S29 SL; -OMEGCAP2 PO; -PRED1SUS4 OP; +ZINC220T6 PO
[2023-11-15 13:00] VITALS: PULSE 55; RESP 21; O2SAT 100
[2023-11-15 14:54] LABS: Basophils # (auto) 0 10 ^3/uL (0-0.2); Eosinophils # (auto) 0.2 10 ^3/uL (0-0.8); Monocytes # (auto) 0.6 10 ^3/uL (0-1.3); Neutrophils # (auto) 3.6 10 ^3/uL (1.6-8.6); White Blood Cell 5.2 10^3/uL (4.4-10.8)
[2023-11-15 14:56] LABS: Basophils % (auto) 0.5 % (0.0-2.0); Eosinophils % (auto) 4.8 % (0.0-7.0); Hematocrit 16.7 % (41.0-53.0); Lymphocytes # (auto) 0.8 10 ^3/uL (0.4-5.4); Lymphocytes % (auto) 14.7 % (10.0-50.0); Mean Corpuscular Volume 75.8 fL (80.0-100.0); Monocytes % (auto) 11.8 % (0.0-12.0); Neutrophils % (auto) 68.2 % (37.0-80.0); Nucleated Red Blood Cells % 0.1 %; Red Blood Cells 2.21 10^6/uL (4.5-5.90); Red Cell Distribution Width 23.4 % (11.8-14.3)
[2023-11-15 14:58] LABS: Hemoglobin 5.5 g/dL (13.5-17.5)
[2023-11-15 15:28] LABS: INR 1.26 (0.9-1.15); Partial Thromboplastin Time 36.2 SEC (24.5-34.5)
[2023-11-15 16:29] LABS: Chloride 100 mmol/L (98-107); Sodium 136 mmol/L (136-145)
[2023-11-15 16:32] LABS: Anion Gap 5 (5-15); Calcium 8.7 mg/dL (8.5-10.1); Carbon Dioxide 31 mmol/L (20-30)
[2023-11-15 16:37] LABS: Alkaline Phosphatase 110 U/L (46-116); BUN/Creatinine Ratio 14.2 (10.0-20.0); Glucose 70 mg/dL (74-106)
[2023-11-15 16:39] LABS: Alanine Aminotransferase 51 U/L (7-40); Albumin 3.5 g/dL (3.2-4.8); Aspartate Aminotransferase 39 U/L (13-40); Bilirubin, Total 0.3 mg/dL (0.2-1.0); Total Protein 7.1 g/dL (5.7-8.2)
[2023-11-15 16:43] LABS: Potassium 8.4 mmol/L (3.5-5.1)
[2023-11-15 16:44] LABS: Blood Urea Nitrogen 84 mg/dL (9-23)
[2023-11-15] MEDS: SODIUM ZIRCONIUM CYCL 10 GM PAK PO ONE (17:11)
[2023-11-15] MEDS: CALCIUM GLUC 1,000mg/50ml-NS 50 ML IV ONE (17:11)
[2023-11-15] MEDS: InsuLIN REG 1unit/0.01ml Soln (100units/ml) IV ONE (17:13)
[2023-11-15] MEDS: DEXTROSE (50%) 50ML SYRG IV ONE (17:14)
[2023-11-15] MEDS: SODIUM BICARB 8.4% 50Meq/50ml SYR INJ IV ONE (17:14)
[2023-11-15] MEDS: ALBUTEROL SULF 2.5 MG/0.5ML(0.5%) NEB SOLN NEB ONE (17:29)
[2023-11-15] MEDS: LIDOCAINE 1% HCL (LOCAL ANESTH.) INJ 20ML MDV ID ONE (17:30)
[2023-11-15] MEDS ORDERED: cloNIDine HCL 0.1 MG TAB PO PRN (18:00)
[2023-11-15] MEDS: FERROUS SULFATE 325mg EC TAB PO SCH (18:46)
[2023-11-15] MEDS ORDERED: HYDROcodone-ACET 5/325MG TAB PO PRN (19:00)
[2023-11-15] MEDS ORDERED: ACETAMINOPHEN 325 MG TAB PO PRN (19:00)
[2023-11-15] MEDS ORDERED: ONDANSETRON HCL 4 MG/2 ML VIAL IV PRN ×2 (19:00→19:15)
[2023-11-15] MEDS ORDERED: DOCUSATE SOD 100 MG CAP PO PRN (19:00)
[2023-11-15] MEDS ORDERED: MORPHINE SULFATE INJ 2 MG/ml SYRG IV PRN ×2 (19:00→19:15)
[2023-11-15] MEDS ORDERED: NITROGLYCERIN 0.4 MG SL TAB SL PRN ×2 (19:00→19:15)
[2023-11-15 19:15] VITALS: PULSE 94; RESP 14; O2SAT 98
[2023-11-15 20:19] VITALS: BP 127/55; PULSE 98; RESP 20; TEMP 98.6
[2023-11-15 20:34] VITALS: BP 133/58; PULSE 100; RESP 14; TEMP 98.2
[2023-11-15] MEDS: SODIUM CHL 0.9% 1000 ML BAG XX ONE (21:06)
[2023-11-15] MEDS: EPOETIN ALFA-EPBX 10,000 UNIT/1ML VIAL SC ONE (21:35)
[2023-11-15] MEDS ORDERED: DOCUSATE SOD 100 MG CAP PO SCH (22:00)
[2023-11-15] MEDS ORDERED: SODIUM CHLOR 0.9% PF (SALINE LOCK) 10ML VIAL/SYR IV SCH (22:00)
[2023-11-15] MEDS: SODIUM CHLOR 0.9% PF (SALINE LOCK) 10ML VIAL/SYR IV SCH (22:02)
[2023-11-15] MEDS: GABAPENTIN 100 MG CAP PO SCH (22:17)
[2023-11-15 22:30] VITALS: BP 125/52; PULSE 99; RESP 14; TEMP 98.3
[2023-11-16] VITALS (18 sets, daily range): BP systolic 111–138; BP diastolic 46–59; PULSE 73–108; RESP 14–22; TEMP 97.7–98.7; O2SAT 86–100
[2023-11-16 00:36] LABS: Hematocrit 21.9 % (41.0-53.0); Hemoglobin 7.3 g/dL (13.5-17.5)
[2023-11-16 04:56] LABS: Basophils # (auto) 0 10 ^3/uL (0-0.2); Basophils % (auto) 0.9 % (0.0-2.0); Eosinophils # (auto) 0.2 10 ^3/uL (0-0.8); Eosinophils % (auto) 3.3 % (0.0-7.0); Hematocrit 21.8 % (41.0-53.0); Hemoglobin 7.2 g/dL (13.5-17.5); Lymphocytes # (auto) 0.5 10 ^3/uL (0.4-5.4); Lymphocytes % (auto) 10.6 % (10.0-50.0); Mean Corpuscular Hemoglobin 26.2 pg (28.0-32.0); Mean Corpuscular Hgb Conc. 33.1 g/dL (32.0-36.0); Mean Corpuscular Volume 79.2 fL (80.0-100.0); Monocytes # (auto) 0.7 10 ^3/uL (0-1.3); Monocytes % (auto) 13.9 % (0.0-12.0); Neutrophils # (auto) 3.4 10 ^3/uL (1.6-8.6); Neutrophils % (auto) 71.3 % (37.0-80.0); Nucleated Red Blood Cells % 0.1 %; Red Blood Cells 2.76 10^6/uL (4.5-5.90); White Blood Cell 4.7 10^3/uL (4.4-10.8)
[2023-11-16 04:58] LABS: Red Cell Distribution Width 20.8 % (11.8-14.3)
[2023-11-16 05:10] LABS: Alanine Aminotransferase 39 U/L (7-40); Albumin 3.2 g/dL (3.2-4.8); Alkaline Phosphatase 97 U/L (46-116); Anion Gap 3 (5-15); Aspartate Aminotransferase 23 U/L (13-40); BUN/Creatinine Ratio 11.6 (10.0-20.0); Bilirubin, Total 0.5 mg/dL (0.2-1.0); Calcium 9.2 mg/dL (8.7-10.4); Carbon Dioxide 34 mmol/L (20-30); Chloride 101 mmol/L (98-107); Glucose 76 mg/dL (74-106); Sodium 138 mmol/L (136-145); Total Protein 7.5 g/dL (5.7-8.2)
[2023-11-16 05:16] LABS: Blood Urea Nitrogen 50 mg/dL (9-23)
[2023-11-16 05:17] LABS: Potassium 5.6 mmol/L (3.5-5.1)
[2023-11-16] MEDS: CALCIUM ACETATE 667 MG CAP PO SCH (08:00)
[2023-11-16] MEDS: HYDROcodone-ACET 5/325MG TAB PO PRN (08:42)
[2023-11-16] MEDS ORDERED: CARVEDILOL 3.125 MG TAB PO SCH (10:00)
[2023-11-16] MEDS: ZINC SULFATE 220mg CAP or TAB PO SCH (10:00)
[2023-11-16] MEDS: ACETAMINOPHEN 325 MG TAB PO PRN (12:30)
[2023-11-16] MEDS: B-COMPLEX W/ C & FOLIC ACID(NEPHROVITE TAB) PO SCH (12:31)
[2023-11-16] MEDS: PANTOPRAZOLE 40 MG TAB PO ONE (12:31)
[2023-11-16] MEDS: CARVEDILOL 3.125 MG TAB PO SCH (21:29)
[2023-11-16] MEDS: MUPIROCIN 2% OINT 15gm or 22gm FOR MRSA NARES EACHNOSTRI SCH (21:45)
[2023-11-17] VITALS (12 sets, daily range): BP systolic 90–134; BP diastolic 47–54; PULSE 60–82; RESP 12–20; TEMP 97.5–98.7; O2SAT 93–100
[2023-11-17] MEDS: PANTOPRAZOLE 40 MG TAB PO SCH (09:19)
[2023-11-17 09:32] LABS: Basophils # (auto) 0 10 ^3/uL (0-0.2); Basophils % (auto) 0.8 % (0.0-2.0); Eosinophils # (auto) 0.2 10 ^3/uL (0-0.8); Hematocrit 22.3 % (41.0-53.0); Hemoglobin 7.3 g/dL (13.5-17.5); Monocytes # (auto) 0.5 10 ^3/uL (0-1.3); White Blood Cell 3.8 10^3/uL (4.4-10.8)
[2023-11-17 09:34] LABS: Eosinophils % (auto) 6.3 % (0.0-7.0); Lymphocytes # (auto) 0.5 10 ^3/uL (0.4-5.4); Lymphocytes % (auto) 12.3 % (10.0-50.0); Mean Corpuscular Hemoglobin 26.1 pg (28.0-32.0); Mean Corpuscular Hgb Conc. 32.6 g/dL (32.0-36.0); Mean Corpuscular Volume 80.2 fL (80.0-100.0); Monocytes % (auto) 13.7 % (0.0-12.0); Neutrophils # (auto) 2.6 10 ^3/uL (1.6-8.6); Neutrophils % (auto) 66.9 % (37.0-80.0); Nucleated Red Blood Cells % 0.1 %; Red Blood Cells 2.78 10^6/uL (4.5-5.90); Red Cell Distribution Width 21.1 % (11.8-14.3)
[2023-11-17 09:36] LABS: Anion Gap 9 (5-15); Carbon Dioxide 31 mmol/L (20-30); Chloride 99 mmol/L (98-107); Potassium 4.5 mmol/L (3.5-5.1); Sodium 139 mmol/L (136-145)
[2023-11-17 09:42] LABS: BUN/Creatinine Ratio 9.1 (10.0-20.0); Glucose 67 mg/dL (74-106)
[2023-11-17 09:50] LABS: Blood Urea Nitrogen 37 mg/dL (9-23)
[2023-11-18] VITALS (17 sets, daily range): BP systolic 100–130; BP diastolic 47–70; PULSE 68–92; RESP 10–18; TEMP 97.8–98.7; O2SAT 2–100
[2023-11-18 11:31] LABS: Alanine Aminotransferase 22 U/L (7-40); Albumin 3.4 g/dL (3.2-4.8); Alkaline Phosphatase 97 U/L (46-116); Anion Gap 7 (5-15); Aspartate Aminotransferase 13 U/L (13-40); BUN/Creatinine Ratio 8.1 (10.0-20.0); Bilirubin, Total 0.4 mg/dL (0.2-1.0); Blood Urea Nitrogen 42 mg/dL (9-23); Carbon Dioxide 31 mmol/L (20-30); Chloride 98 mmol/L (98-107); Glucose 95 mg/dL (74-106); Potassium 4.5 mmol/L (3.5-5.1); Sodium 136 mmol/L (136-145); Total Protein 7.4 g/dL (5.7-8.2)
[2023-11-18 11:42] LABS: Basophils # (auto) 0 10 ^3/uL (0-0.2); Eosinophils # (auto) 0.3 10 ^3/uL (0-0.8); Hemoglobin 7.4 g/dL (13.5-17.5); Lymphocytes # (auto) 0.7 10 ^3/uL (0.4-5.4); Monocytes # (auto) 0.5 10 ^3/uL (0-1.3); Neutrophils # (auto) 3.1 10 ^3/uL (1.6-8.6); Nucleated Red Blood Cells % 0.2 %
[2023-11-18 11:44] LABS: Basophils % (auto) 0.8 % (0.0-2.0); Eosinophils % (auto) 7.3 % (0.0-7.0); Lymphocytes % (auto) 14.8 % (10.0-50.0); Mean Corpuscular Hemoglobin 25.6 pg (28.0-32.0); Mean Corpuscular Hgb Conc. 32.3 g/dL (32.0-36.0); Mean Corpuscular Volume 79.3 fL (80.0-100.0); Monocytes % (auto) 11.3 % (0.0-12.0); Neutrophils % (auto) 65.8 % (37.0-80.0); White Blood Cell 4.7 10^3/uL (4.4-10.8)
[2023-11-18 11:45] LABS: Red Cell Distribution Width 21.4 % (11.8-14.3)
[2023-11-19] VITALS (8 sets, daily range): BP systolic 106–131; BP diastolic 48–64; PULSE 66–73; RESP 17–22; TEMP 97.5–98.8; O2SAT 2–100
[2023-11-19] MEDS ORDERED: SODIUM CHL 0.9% 1000 ML BAG XX ONE (07:00)
[2023-11-19 09:15] LABS: Hepatitis B Surface Antigen Negative (Negative)
[2023-11-19 09:18] LABS: Hepatitis B Surface Antibody Negative (Negative)
[2023-11-19] MEDS: EPOETIN ALFA-EPBX 10,000 UNIT/1ML VIAL SC ONE (21:00)
[2023-11-20] VITALS (10 sets, daily range): BP systolic 127–137; BP diastolic 49–61; PULSE 67–74; RESP 17–19; TEMP 97–98.7; O2SAT 94–100
[2023-11-20] MEDS: DOCUSATE SOD 100 MG CAP PO PRN (08:00)
[2023-11-20] MEDS: LACTULOSE 20Gm/30ML SOLN PO SCH (16:43)
[2023-11-21] VITALS (11 sets, daily range): BP systolic 114–145; BP diastolic 56–71; PULSE 65–76; RESP 16–20; TEMP 97.7–98.5; O2SAT 100
[2023-11-21 06:41] LABS: Basophils # (auto) 0 10 ^3/uL (0-0.2); Eosinophils # (auto) 0.3 10 ^3/uL (0-0.8); Lymphocytes # (auto) 0.7 10 ^3/uL (0.4-5.4); Monocytes # (auto) 0.6 10 ^3/uL (0-1.3); Neutrophils # (auto) 2.9 10 ^3/uL (1.6-8.6); White Blood Cell 4.5 10^3/uL (4.4-10.8)
[2023-11-21 06:45] LABS: Eosinophils % (auto) 6.1 % (0.0-7.0); Hematocrit 19.3 % (41.0-53.0); Lymphocytes % (auto) 15.7 % (10.0-50.0); Mean Corpuscular Hgb Conc. 32.8 g/dL (32.0-36.0); Mean Corpuscular Volume 79.1 fL (80.0-100.0); Neutrophils % (auto) 64.2 % (37.0-80.0); Red Blood Cells 2.44 10^6/uL (4.5-5.90)
[2023-11-21 06:52] LABS: Red Cell Distribution Width 21.3 % (11.8-14.3)
[2023-11-21 06:53] LABS: Hemoglobin 6.3 g/dL (13.5-17.5)
[2023-11-21] MEDS ORDERED: SODIUM CHL 0.9% 1000 ML BAG XX ONE (07:00)
[2023-11-21 08:43] LABS: Anisocytosis Slight; Platelet Estimate Adequate
[2023-11-21] MEDS: EPOETIN ALFA-EPBX 10,000 UNIT/1ML VIAL SC ONE (22:08)
[2023-11-22] VITALS (7 sets, daily range): BP systolic 95–151; BP diastolic 56–63; PULSE 64–70; RESP 17–19; TEMP 97.5–98.4; O2SAT 99–100
[2023-11-22 09:49] LABS: Eosinophils % (auto) 5.3 % (0.0-7.0); Hemoglobin 7.9 g/dL (13.5-17.5); Lymphocytes # (auto) 0.6 10 ^3/uL (0.4-5.4); Monocytes # (auto) 0.5 10 ^3/uL (0-1.3); Nucleated Red Blood Cells % 0.1 %; White Blood Cell 4.7 10^3/uL (4.4-10.8)
[2023-11-22 09:53] LABS: Basophils # (auto) 0.1 10 ^3/uL (0-0.2); Basophils % (auto) 1.2 % (0.0-2.0); Eosinophils # (auto) 0.3 10 ^3/uL (0-0.8); Hematocrit 23.8 % (41.0-53.0); Lymphocytes % (auto) 12.1 % (10.0-50.0); Mean Corpuscular Hemoglobin 26.5 pg (28.0-32.0); Mean Corpuscular Hgb Conc. 33.2 g/dL (32.0-36.0); Mean Corpuscular Volume 79.8 fL (80.0-100.0); Monocytes % (auto) 11.4 % (0.0-12.0); Neutrophils # (auto) 3.3 10 ^3/uL (1.6-8.6); Red Blood Cells 2.98 10^6/uL (4.5-5.90); Red Cell Distribution Width 19.4 % (11.8-14.3)
[2023-11-22 10:05] LABS: Chloride 99 mmol/L (98-107); Potassium 4.1 mmol/L (3.5-5.1); Sodium 136 mmol/L (136-145)
[2023-11-22 10:06] LABS: Anion Gap 8 (5-15); Calcium 8.9 mg/dL (8.5-10.1); Carbon Dioxide 29 mmol/L (20-30)
[2023-11-22 10:11] LABS: BUN/Creatinine Ratio 6.5 (10.0-20.0); Blood Urea Nitrogen 27 mg/dL (9-23); Glucose 87 mg/dL (74-106)
[2023-11-22 10:55] LABS: Platelet Estimate Adequate
[2023-11-22] MEDS: OXYCODONE W/ ACETAMINOPHEN 5/325MG TABLET PO ONE (11:00)
[2023-11-22] MEDS: LATANOPROST 0.005 % OPTH(EYE) SOL 2.5ML EACHEYE SCH (17:25)
[2023-11-23 05:00] VITALS: BP 131/49; PULSE 66; RESP 19; TEMP 98.4; O2SAT 100
[2023-11-23 08:00] VITALS: PULSE 69; RESP 18
[2023-11-23 09:00] VITALS: BP 125/53; PULSE 66; RESP 19; TEMP 98.1; O2SAT 100
[2023-11-23 13:00] VITALS: BP 148/61; PULSE 60; RESP 17; TEMP 97.8; O2SAT 99
[2023-11-23 17:00] VITALS: BP 125/56; PULSE 61; RESP 17; TEMP 97.9; O2SAT 96
== END 2023-11-23 19:34 | DRG 811 ==
LOC: EDBD 10:22 → ER 10:22 → TELE 18:47 → ER 18:49 → TELE 18:49 → ICU CENTRL 23:45 → DOU IN ICU 23:57 → CENTRAL 11-18 16:56 → TELE-CENTR 11-19 04:15
PROVIDERS: ADMIT Nurse Practitioner Family; ATTEND Nurse Practitioner
PROC: 30233N1 Transfusion of Nonautologous Red Blood Cells into Peripheral Vein, Percutaneous Approach (ICD-10-PCS; principal; 2023-11-15)
PROC: 5A1D70Z Performance of Urinary Filtration, Intermittent, Less than 6 Hours Per Day (ICD-10-PCS; 2023-11-15)
PROC: 5A1D70Z Performance of Urinary Filtration, Intermittent, Less than 6 Hours Per Day (ICD-10-PCS; 2023-11-16)
PROC: 5A1D70Z Performance of Urinary Filtration, Intermittent, Less than 6 Hours Per Day (ICD-10-PCS; 2023-11-19)
PROC: 5A1D70Z Performance of Urinary Filtration, Intermittent, Less than 6 Hours Per Day (ICD-10-PCS; 2023-11-21)
DX: D64.9 Anemia, unspecified (principal); I50.33 Acute on chronic diastolic (congestive) heart failure; N18.6 End stage renal disease; R53.2 Functional quadriplegia; I13.2 Hypertensive heart and chronic kidney disease with heart failure and with stage 5 chronic kidney disease, or end stage renal disease; E87.20 Acidosis, unspecified; J96.10 Chronic respiratory failure, unspecified whether with hypoxia or hypercapnia; E78.5 Hyperlipidemia, unspecified; I48.91 Unspecified atrial fibrillation; E66.9 Obesity, unspecified; E11.22 Type 2 diabetes mellitus with diabetic chronic kidney disease; E87.5 Hyperkalemia; M89.8X9 Other specified disorders of bone, unspecified site; Z99.2 Dependence on renal dialysis; Z79.899 Other long term (current) drug therapy; Z89.511 Acquired absence of right leg below knee; Z89.512 Acquired absence of left leg below knee; Z83.3 Family history of diabetes mellitus; Z82.49 Family history of ischemic heart disease and other diseases of the circulatory system; Z91.199 Patient's noncompliance with other medical treatment and regimen due to unspecified reason; Z68.37 Body mass index [BMI] 37.0-37.9, adult; Z87.19 Personal history of other diseases of the digestive system; Z91.158 Patient's noncompliance with renal dialysis for other reason; Z91.52 Personal history of nonsuicidal self-harm
CPT/HCPCS: 36415; 71045; 80048; 80053; 84132; 85014; 85018; 85025; 85610; 85730; 86706; 86850; 86900; 86901; 86902; 86922; 87081; 87340; 90935; 93005; 94640; 96365; 96375; G0378; J1642; J1815; J2001

== ENCOUNTER 2024-01-05 12:54 | Inpatient (IN) | payer OTHER, MEDICARE, MEDICAID ==
[~2024-01-05] VITALS: Ht 180.3 cm; Wt 94.6 kg
[2024-01-05 13:29] LABS: Basophils # (auto) 0 10 ^3/uL (0-0.2); Eosinophils # (auto) 0.3 10 ^3/uL (0-0.8); Nucleated Red Blood Cells % 0.1 %
[2024-01-05 13:32] LABS: Basophils % (auto) 0.8 % (0.0-2.0); Lymphocytes # (auto) 0.7 10 ^3/uL (0.4-5.4); Lymphocytes % (auto) 11.8 % (10.0-50.0); Mean Corpuscular Hemoglobin 25.3 pg (28.0-32.0); Mean Corpuscular Hgb Conc. 32.5 g/dL (32.0-36.0); Mean Corpuscular Volume 77.9 fL (80.0-100.0); Monocytes # (auto) 0.8 10 ^3/uL (0-1.3); Monocytes % (auto) 13.1 % (0.0-12.0); Neutrophils % (auto) 69.3 % (37.0-80.0); Red Blood Cells 1.91 10^6/uL (4.5-5.90); Red Cell Distribution Width 21.5 % (11.8-14.3); White Blood Cell 5.7 10^3/uL (4.4-10.8)
[2024-01-05 13:38] LABS: Hemoglobin 4.8 g/dL (13.5-17.5)
[2024-01-05 13:39] LABS: Hematocrit 14.9 % (41.0-53.0)
[2024-01-05 13:46] LABS: Chloride 100 mmol/L (98-107); Sodium 139 mmol/L (136-145)
[2024-01-05 13:47] LABS: Anion Gap 9 (5-15); Carbon Dioxide 30 mmol/L (20-30)
[2024-01-05 13:48] LABS: Calcium 9.2 mg/dL (8.5-10.1)
[2024-01-05 13:52] LABS: Glucose 97 mg/dL (74-106)
[2024-01-05 13:53] LABS: Anisocytosis Moderate
[2024-01-05 13:54] LABS: Platelet Estimate Adequate
[2024-01-05 13:56] LABS: BUN/Creatinine Ratio 10.9 (10.0-20.0); Blood Urea Nitrogen 91 mg/dL (9-23)
[2024-01-05 14:25] VITALS: PULSE 85; RESP 16; O2SAT 94
[2024-01-05] MEDS: ALBUTEROL SULF 2.5 MG/0.5ML(0.5%) NEB SOLN NEB ONE (14:28)
[2024-01-05] MEDS: CALCIUM GLUC 1,000mg/50ml-NS 50 ML IV ONE (15:53)
[2024-01-05] MEDS: SODIUM BICARB 8.4% 50Meq/50ml SYR INJ IV ONE (16:19)
[2024-01-05] MEDS: DEXTROSE (50%) 50ML SYRG IV ONE (16:20)
[2024-01-05] MEDS: SODIUM ZIRCONIUM CYCL 10 GM PAK PO ONE (16:31)
[2024-01-05] MEDS: FUROSEMIDE 20 MG/2 ML VIAL IV ONE (16:32)
[2024-01-05] MEDS: InsuLIN REG 1unit/0.01ml Soln (100units/ml) IV ONE (16:34)
[2024-01-05] MEDS ORDERED: MORPHINE SULFATE INJ 2 MG/ml SYRG IV PRN (18:00)
[2024-01-05] MEDS ORDERED: NITROGLYCERIN 0.4 MG SL TAB SL SCH (18:00)
[2024-01-05] MEDS ORDERED: ONDANSETRON HCL 4 MG/2 ML VIAL IV PRN (18:00)
[2024-01-05] MEDS ORDERED: NITROGLYCERIN 0.4 MG SL TAB SL PRN (18:00)
[2024-01-05] MEDS: CALCIUM ACETATE 667 MG CAP PO SCH (18:46)
[2024-01-05] MEDS: LIDOCAINE 1% HCL (LOCAL ANESTH.) INJ 20ML MDV ID ONE (18:48)
[2024-01-05 19:50] VITALS: PULSE 91; RESP 18; O2SAT 94
[2024-01-05 20:53] VITALS: BP 137/26; PULSE 88; RESP 15; TEMP 97.8
[2024-01-05 21:19] VITALS: BP 121/28; PULSE 87; RESP 14; TEMP 97.9
[2024-01-05 22:00] VITALS: BP 144/23; PULSE 85; RESP 14; TEMP 97.6
[2024-01-05] MEDS: GABAPENTIN 100 MG CAP PO SCH (22:57)
[2024-01-05] MEDS: FERROUS SULFATE 325mg EC TAB PO SCH (22:57)
[2024-01-05] MEDS: CARVEDILOL 3.125 MG TAB PO SCH (22:58)
[2024-01-05 23:00] VITALS: BP 128/44; PULSE 93; RESP 15; TEMP 97.9
[2024-01-05] MEDS: LATANOPROST 0.005 % OPTH(EYE) SOL 2.5ML EACHEYE SCH (23:02)
[2024-01-06] VITALS (21 sets, daily range): BP systolic 92–166; BP diastolic 25–73; PULSE 70–99; RESP 14–18; TEMP 97.5–98.6; O2SAT 96–99
[2024-01-06] MEDS: HYDROcodone-ACET 5/325MG TAB PO PRN (03:13)
[2024-01-06 05:28] LABS: Basophils # (auto) 0 10 ^3/uL (0-0.2); Eosinophils # (auto) 0.2 10 ^3/uL (0-0.8); Neutrophils # (auto) 3.4 10 ^3/uL (1.6-8.6); Nucleated Red Blood Cells % 0.1 %; White Blood Cell 4.9 10^3/uL (4.4-10.8)
[2024-01-06 05:32] LABS: Basophils % (auto) 0.8 % (0.0-2.0); Eosinophils % (auto) 3.7 % (0.0-7.0); Hematocrit 18.4 % (41.0-53.0); Lymphocytes # (auto) 0.5 10 ^3/uL (0.4-5.4); Lymphocytes % (auto) 10.5 % (10.0-50.0); Mean Corpuscular Hemoglobin 26.5 pg (28.0-32.0); Mean Corpuscular Hgb Conc. 33.3 g/dL (32.0-36.0); Mean Corpuscular Volume 79.7 fL (80.0-100.0); Monocytes # (auto) 0.7 10 ^3/uL (0-1.3); Monocytes % (auto) 14.8 % (0.0-12.0); Neutrophils % (auto) 70.2 % (37.0-80.0); Red Cell Distribution Width 19.8 % (11.8-14.3)
[2024-01-06 05:51] LABS: Alanine Aminotransferase 15 U/L (7-40); Albumin 3.3 g/dL (3.2-4.8); Alkaline Phosphatase 107 U/L (46-116); Anion Gap 5 (5-15); Aspartate Aminotransferase < 8 U/L (13-40); BUN/Creatinine Ratio 8.9 (10.0-20.0); Calcium 9.1 mg/dL (8.7-10.4); Carbon Dioxide 35 mmol/L (20-30); Chloride 102 mmol/L (98-107); Glucose 109 mg/dL (74-106); Sodium 142 mmol/L (136-145)
[2024-01-06 05:52] LABS: Bilirubin, Total 0.3 mg/dL (0.2-1.0); Hemoglobin 6.1 g/dL (13.5-17.5); Total Protein 7.7 g/dL (5.7-8.2)
[2024-01-06 06:16] LABS: Blood Urea Nitrogen 47 mg/dL (9-23)
[2024-01-06 07:03] LABS: Platelet Estimate Adequate
[2024-01-06 07:04] LABS: Anisocytosis Slight; Target Cell FEW
[2024-01-06] MEDS: ZINC SULFATE 220mg CAP or TAB PO SCH (11:48)
[2024-01-06] MEDS: B-COMPLEX W/ C & FOLIC ACID(NEPHROVITE TAB) PO SCH (11:48)
[2024-01-06] MEDS: DOXYCYCLINE 100MG/250ML 250 ML IV SCH (15:56)
[2024-01-06 19:04] LABS: Hemoglobin 7.8 g/dL (13.5-17.5)
[2024-01-06 19:06] LABS: Hematocrit 23.7 % (41.0-53.0)
[2024-01-06] MEDS: PIPERACILLIN-TAZOB 3.375GM 100 ML IV SCH (21:33)
[2024-01-07] VITALS (10 sets, daily range): BP systolic 118–146; BP diastolic 42–64; PULSE 70–101; RESP 18–20; TEMP 97–98.1; O2SAT 96–100
[2024-01-07] MEDS: SODIUM CHL 0.9% 1000 ML BAG XX ONE (09:01)
[2024-01-07 09:05] LABS: Hepatitis B Surface Antigen Negative (Negative)
[2024-01-07 09:25] LABS: Hepatitis C Antibody Negative (Negative)
[2024-01-07] MEDS ORDERED: GOLYTELY 4L KIT PO ONE (19:00)
[2024-01-07] MEDS ORDERED: POLYETHYLENE GLYCOL 17 GM PWDR PO ONE (22:00)
[2024-01-08] VITALS (15 sets, daily range): BP systolic 104–146; BP diastolic 53–69; PULSE 68–78; RESP 16–22; TEMP 96.9–98.1; O2SAT 97–100
[2024-01-08] MEDS ORDERED: POLYETHYLENE GLYCOL 17 GM PWDR PO ONE (04:00)
[2024-01-08] MEDS: GOLYTELY 4L KIT PO ONE (06:11)
[2024-01-08 06:34] LABS: Basophils # (auto) 0 10 ^3/uL (0-0.2); Eosinophils # (auto) 0.2 10 ^3/uL (0-0.8); Hemoglobin 7.1 g/dL (13.5-17.5); Lymphocytes # (auto) 0.5 10 ^3/uL (0.4-5.4); Monocytes # (auto) 0.6 10 ^3/uL (0-1.3)
[2024-01-08 06:43] LABS: Basophils % (auto) 0.7 % (0.0-2.0); Hematocrit 21.2 % (41.0-53.0); Lymphocytes % (auto) 11.9 % (10.0-50.0); Mean Corpuscular Hemoglobin 27.6 pg (28.0-32.0); Mean Corpuscular Hgb Conc. 33.5 g/dL (32.0-36.0); Mean Corpuscular Volume 82.1 fL (80.0-100.0); Monocytes % (auto) 13.2 % (0.0-12.0); Neutrophils % (auto) 69.2 % (37.0-80.0); Red Blood Cells 2.59 10^6/uL (4.5-5.90); White Blood Cell 4.4 10^3/uL (4.4-10.8)
[2024-01-08 06:44] LABS: INR 1.27 (0.9-1.15); Partial Thromboplastin Time 36.5 SEC (24.5-34.5); Prothrombin Time 13.2 sec (9.3-11.8)
[2024-01-08 06:53] LABS: Alanine Aminotransferase 12 U/L (7-40); Albumin 3.3 g/dL (3.2-4.8); Alkaline Phosphatase 77 U/L (46-116); Anion Gap 9 (5-15); Aspartate Aminotransferase < 8 U/L (13-40); BUN/Creatinine Ratio 9.4 (10.0-20.0); Blood Urea Nitrogen 61 mg/dL (9-23); Calcium 9.2 mg/dL (8.5-10.1); Carbon Dioxide 29 mmol/L (20-30); Chloride 101 mmol/L (98-107); Glucose 81 mg/dL (74-106); Potassium 4.8 mmol/L (3.5-5.1); Sodium 139 mmol/L (136-145)
[2024-01-08 06:54] LABS: Bilirubin, Total 0.4 mg/dL (0.2-1.0); Total Protein 7.5 g/dL (5.7-8.2)
[2024-01-08] MEDS: LIDOCAINE 1% (LOCAL ANESTH.) PF 5ml SDV ONE (08:25)
[2024-01-08] MEDS: SODIUM CHL 0.9% 1000 ML BAG XX ONE (08:40)
[2024-01-08] MEDS: LIDOCAINE 1% HCL (LOCAL ANESTH.) INJ 20ML MDV ID ONE (08:40)
[2024-01-08] MEDS: ACETAMINOPHEN 325 MG TAB PO PRN (11:58)
[2024-01-08] MEDS: EPOETIN ALFA-EPBX 10,000 UNIT/1ML VIAL SC ONE (21:57)
[2024-01-08] MEDS: PIPERACILLIN-TAZOB 3.375GM 100 ML IV SCH (21:58)
[2024-01-09] VITALS (51 sets, daily range): BP systolic 105–161; BP diastolic 15–77; PULSE 69–89; RESP 14–22; TEMP 97.6–98.6; O2SAT 91–100
[2024-01-09 07:03] LABS: Basophils # (auto) 0 10 ^3/uL (0-0.2); Basophils % (auto) 0.9 % (0.0-2.0); Eosinophils # (auto) 0.2 10 ^3/uL (0-0.8); Eosinophils % (auto) 5.1 % (0.0-7.0); Hematocrit 24.2 % (41.0-53.0); Lymphocytes # (auto) 0.5 10 ^3/uL (0.4-5.4); Lymphocytes % (auto) 10.9 % (10.0-50.0); Mean Corpuscular Hemoglobin 26.8 pg (28.0-32.0); Mean Corpuscular Hgb Conc. 32.8 g/dL (32.0-36.0); Mean Corpuscular Volume 81.7 fL (80.0-100.0); Monocytes # (auto) 0.6 10 ^3/uL (0-1.3); Monocytes % (auto) 13.5 % (0.0-12.0); Neutrophils % (auto) 69.6 % (37.0-80.0); Red Blood Cells 2.97 10^6/uL (4.5-5.90); Red Cell Distribution Width 17.9 % (11.8-14.3); White Blood Cell 4.4 10^3/uL (4.4-10.8)
[2024-01-09 07:50] LABS: Chloride 100 mmol/L (98-107); Sodium 136 mmol/L (136-145)
[2024-01-09 07:51] LABS: Anion Gap 8 (5-15); Carbon Dioxide 28 mmol/L (20-30)
[2024-01-09 07:56] LABS: Glucose 71 mg/dL (74-106)
[2024-01-09 07:59] LABS: Blood Urea Nitrogen 32 mg/dL (9-23)
[2024-01-09] MEDS ORDERED: fentaNYL CITRATE 5 ML ONE (08:26)
[2024-01-09] MEDS ORDERED: MIDAZOLAM HCL 2MG/2ML 2ml VIAL (1mg/ml) ONE ×2 (08:26→11:33)
[2024-01-09] MEDS ORDERED: fentaNYL CITRATE 100 MCG/2 ML VL ONE ×2 (08:26→10:43)
[2024-01-09] MEDS: LIDOCAINE W/ EPINEPHRINE 1% 20ML VIAL ONE (08:27)
[2024-01-09] MEDS: LIDOCAINE 1% HCL (LOCAL ANESTH.) INJ 20ML MDV ONE (08:28)
[2024-01-09] MEDS: BUPIVACAINE 0.25% INJ 50ML VIAL ONE (08:28)
[2024-01-09] MEDS: ceFAZolin 2 GM/D5W50ml 50 ML IV ONE (08:58)
[2024-01-09] MEDS: metroNIDAZOLE 500MG/100ML 100 ML IV ONE (08:58)
[2024-01-09] MEDS ORDERED: DexAMETHasone SOD PHOS 10MG/1ML VIAL INJ ONE (09:49)
[2024-01-09] MEDS ORDERED: KETAMINE 50mg/ML 10ml Vial 10 ML ONE (09:49)
[2024-01-09] MEDS ORDERED: ETOMIDATE (2MG/ML) 20ML VIAL IV ONE (09:49)
[2024-01-09] MEDS ORDERED: HYDROmorphone HCL 2 MG/ML VL/or syr ONE (10:11)
[2024-01-09] MEDS: MIDAZOLAM DRIP 50 mg/50mL 50 ML IV SCH (12:36)
[2024-01-09] MEDS: hydrALAZINE HCL 20 MG/ML VL IV PRN (12:55)
[2024-01-09] MEDS ORDERED: LABETALOL HCL 5 MG/ML 4ML SYRINGE IV PRN (13:00)
[2024-01-09] MEDS ORDERED: ePHEDrine SULFATE 50 MG/ML AMP IV PRN (13:00)
[2024-01-09] MEDS ORDERED: MIDAZOLAM HCL 2MG/2ML 2ml VIAL (1mg/ml) IV PRN (13:00)
[2024-01-09] MEDS ORDERED: HYDROmorphone HCL 2 MG/ML VL/or syr IV PRN (13:00)
[2024-01-09] MEDS ORDERED: MORPHINE SULFATE 4 MG/ML SYR/VIAL IV PRN (13:00)
[2024-01-09 13:05] LABS: Base Excess -1.6 mmol/L (-2.0-2.0)
[2024-01-09] MEDS: fentaNYL Drip 2500mCg/250mlNS 250 ML IV SCH (13:14)
[2024-01-09] MEDS: ACCU-CHEK COMFORT CURVE STRIP VI ONE (13:24)
[2024-01-09] MEDS: ONDANSETRON HCL 4 MG/2 ML VIAL IV ONE (17:10)
[2024-01-09 19:50] LABS: Basophils # (auto) 0 10 ^3/uL (0-0.2); Basophils % (auto) 0.4 % (0.0-2.0); Eosinophils # (auto) 0 10 ^3/uL (0-0.8); Eosinophils % (auto) 0.1 % (0.0-7.0); Hematocrit 25.1 % (41.0-53.0); Hemoglobin 8.4 g/dL (13.5-17.5); Lymphocytes # (auto) 0.3 10 ^3/uL (0.4-5.4); Lymphocytes % (auto) 4.3 % (10.0-50.0); Mean Corpuscular Hemoglobin 27.1 pg (28.0-32.0); Mean Corpuscular Hgb Conc. 33.3 g/dL (32.0-36.0); Mean Corpuscular Volume 81.3 fL (80.0-100.0); Monocytes # (auto) 0.2 10 ^3/uL (0-1.3); Monocytes % (auto) 2.9 % (0.0-12.0); Neutrophils # (auto) 6.8 10 ^3/uL (1.6-8.6); Neutrophils % (auto) 92.3 % (37.0-80.0); Nucleated Red Blood Cells % 0.1 %; Red Blood Cells 3.09 10^6/uL (4.5-5.90); Red Cell Distribution Width 17.9 % (11.8-14.3); White Blood Cell 7.3 10^3/uL (4.4-10.8)
[2024-01-09] MEDS: PANTOPRAZOLE 40 MG/10 ML VIAL INJ IV SCH (23:33)
[2024-01-10] VITALS (104 sets, daily range): BP systolic 91–156; BP diastolic 16–84; PULSE 75–102; RESP 9–21; TEMP 97.6–98.5; O2SAT 99–100
[2024-01-10 06:24] LABS: Chloride 102 mmol/L (98-107); Potassium 4.5 mmol/L (3.5-5.1); Sodium 137 mmol/L (136-145)
[2024-01-10 06:25] LABS: Anion Gap 9 (5-15); Calcium 8.6 mg/dL (8.7-10.4); Carbon Dioxide 26 mmol/L (20-30)
[2024-01-10 06:30] LABS: Glucose 97 mg/dL (74-106)
[2024-01-10 06:37] LABS: Blood Urea Nitrogen 43 mg/dL (9-23)
[2024-01-10] MEDS: SODIUM CHL 0.9% 1000 ML BAG XX ONE (07:00)
[2024-01-10 07:03] LABS: Basophils # (auto) 0 10 ^3/uL (0-0.2); Basophils % (auto) 0.5 % (0.0-2.0); Eosinophils # (auto) 0 10 ^3/uL (0-0.8); Hematocrit 20.7 % (41.0-53.0); Lymphocytes # (auto) 0.5 10 ^3/uL (0.4-5.4); Lymphocytes % (auto) 6.4 % (10.0-50.0); Mean Corpuscular Hemoglobin 26.1 pg (28.0-32.0); Mean Corpuscular Hgb Conc. 32.7 g/dL (32.0-36.0); Mean Corpuscular Volume 79.6 fL (80.0-100.0); Monocytes # (auto) 1.2 10 ^3/uL (0-1.3); Monocytes % (auto) 14.8 % (0.0-12.0); Neutrophils # (auto) 6.4 10 ^3/uL (1.6-8.6); Neutrophils % (auto) 78.3 % (37.0-80.0); Nucleated Red Blood Cells % 0.1 %; White Blood Cell 8.2 10^3/uL (4.4-10.8)
[2024-01-10 07:06] LABS: Hemoglobin 6.8 g/dL (13.5-17.5)
[2024-01-10] MEDS ORDERED: TPN PER PHARMACY 0 ML IV SCH (08:15)
[2024-01-10] MEDS ORDERED: DEXTROSE (50%) 50ML SYRG IV SCH (08:30)
[2024-01-10 08:46] LABS: Magnesium 1.7 mg/dL (1.6-2.6)
[2024-01-10 08:48] LABS: Phosphorus 5.2 mg/dL (2.4-5.1)
[2024-01-10] MEDS: ALBUTEROL SULF 2.5 MG/0.5ML(0.5%) NEB SOLN NEB PRN (10:09)
[2024-01-10] MEDS: InsuLIN REG 1unit/0.01ml Soln (100units/ml) SC SCH (12:00)
[2024-01-10] MEDS: ACCU-CHEK COMFORT CURVE STRIP VI SCH (12:56)
[2024-01-10] MEDS: HYDROmorphone HCL 2 MG/ML VL/or syr IV PRN ×2 (18:47→22:39)
[2024-01-10] MEDS: LIDOCAINE 1% (LOCAL ANESTH.) PF 5ml SDV ID ONE (19:00)
[2024-01-10] MEDS ORDERED: TPN PER PHARMACY IV NR (20:00)
[2024-01-10 20:35] LABS: Hemoglobin 8.1 g/dL (13.5-17.5)
[2024-01-10 20:36] LABS: Hematocrit 24.2 % (41.0-53.0)
[2024-01-10 20:45] LABS: Chloride 101 mmol/L (98-107); Potassium 3.6 mmol/L (3.5-5.1); Sodium 139 mmol/L (136-145)
[2024-01-10 20:46] LABS: Anion Gap 4 (5-15); Calcium 8.9 mg/dL (8.5-10.1); Carbon Dioxide 34 mmol/L (20-30)
[2024-01-10 20:51] LABS: BUN/Creatinine Ratio 6.3 (10.0-20.0); Glucose 87 mg/dL (74-106)
[2024-01-10] MEDS: AMINO ACID INFUSION IN D5W 2,000 ML IV NR (20:52)
[2024-01-10] MEDS: EPOETIN ALFA-EPBX 10,000 UNIT/1ML VIAL SC ONE (20:55)
[2024-01-10 21:02] LABS: Blood Urea Nitrogen 23 mg/dL (9-23)
[2024-01-10] MEDS: SODIUM CHLOR 0.9% PF (SALINE LOCK) 10ML VIAL/SYR IV SCH (22:02)
[2024-01-10] MEDS: MUPIROCIN 2% OINT 15gm or 22gm FOR MRSA NARES EACHNOSTRI SCH (22:40)
[2024-01-11] VITALS (11 sets, daily range): BP systolic 109–136; BP diastolic 36–57; PULSE 83–91; RESP 16–20; TEMP 97.9–99.1; O2SAT 94–100
[2024-01-11 05:12] LABS: Mean Corpuscular Hemoglobin 27.3 pg (28.0-32.0)
[2024-01-11 05:14] LABS: Hematocrit 21.3 % (41.0-53.0); Red Blood Cells 2.56 10^6/uL (4.5-5.90); Red Cell Distribution Width 16.9 % (11.8-14.3); White Blood Cell 5.2 10^3/uL (4.4-10.8)
[2024-01-11 05:20] LABS: Chloride 94 mmol/L (98-107); Potassium 3.3 mmol/L (3.5-5.1)
[2024-01-11 05:21] LABS: Anion Gap 3 (5-15); Basophils % (manual) 0 (0.0-2.0); Blast Cells 0; Calcium 8.1 mg/dL (8.5-10.1); Carbon Dioxide 32 mmol/L (20-30); Metamyelocytes % 0; Myelocytes % 0; Promyelocytes % 0; Reactive Lymphocytes 0
[2024-01-11 05:26] LABS: BUN/Creatinine Ratio 6.6 (10.0-20.0); Blood Urea Nitrogen 26 mg/dL (9-23)
[2024-01-11 05:27] LABS: Magnesium 1.6 mg/dL (1.6-2.6)
[2024-01-11 05:28] LABS: Phosphorus 3.4 mg/dL (2.4-5.1)
[2024-01-11 05:37] LABS: Glucose 326 mg/dL (74-106); Sodium 129 mmol/L (136-145)
[2024-01-11 09:20] LABS: Band Neutrophils % (manual) 2; Eosinophils % (manual) 1 (0-7); Lymphocytes % (manual) 18 (10.0-50.0); Monocytes % (manual) 7 (0-12); Platelet Estimate Adequate
[2024-01-11] MEDS: POTASSIUM CHLORIDE 20 MEQ, LIDOCAINE 1% (LOCAL ANESTH.) 2 ML in SODIUM CHL 0.9% 100 ML IV ONE (16:22)
[2024-01-11] MEDS: TPN PER PHARMACY IV NR (21:02)
[2024-01-11] MEDS: FERROUS SULFATE 300 MG/5 ML ORAL LIQ PO SCH (21:38)
[2024-01-12] VITALS (15 sets, daily range): BP systolic 91–135; BP diastolic 42–72; PULSE 78–102; RESP 16–20; TEMP 97.5–99.6; O2SAT 91–100
[2024-01-12] MEDS ORDERED: SODIUM CHL 0.9% 1000 ML BAG XX ONE (07:00)
[2024-01-12 08:19] LABS: Basophils # (auto) 0.1 10 ^3/uL (0-0.2); Basophils % (auto) 0.6 % (0.0-2.0); Eosinophils # (auto) 0.2 10 ^3/uL (0-0.8); Hematocrit 20.2 % (41.0-53.0); Lymphocytes # (auto) 0.5 10 ^3/uL (0.4-5.4); Red Blood Cells 2.43 10^6/uL (4.5-5.90)
[2024-01-12 08:22] LABS: Eosinophils % (auto) 2.6 % (0.0-7.0); Lymphocytes % (auto) 5.8 % (10.0-50.0); Mean Corpuscular Hgb Conc. 33.7 g/dL (32.0-36.0); Monocytes # (auto) 1.2 10 ^3/uL (0-1.3); Monocytes % (auto) 15.2 % (0.0-12.0); Neutrophils # (auto) 6.2 10 ^3/uL (1.6-8.6); Neutrophils % (auto) 75.8 % (37.0-80.0); Red Cell Distribution Width 17.2 % (11.8-14.3); White Blood Cell 8.1 10^3/uL (4.4-10.8)
[2024-01-12 08:37] LABS: Albumin 2.9 g/dL (3.2-4.8); Alkaline Phosphatase 56 U/L (46-116); Anion Gap 5 (5-15); Aspartate Aminotransferase < 8 U/L (13-40); Bilirubin, Total 0.4 mg/dL (0.2-1.0); Calcium 8.5 mg/dL (8.5-10.1); Carbon Dioxide 32 mmol/L (20-30); Chloride 98 mmol/L (98-107); Magnesium 1.7 mg/dL (1.6-2.6); Phosphorus 2.6 mg/dL (2.4-5.1); Potassium 3.5 mmol/L (3.5-5.1)
[2024-01-12 08:38] LABS: Total Protein 6.6 g/dL (5.7-8.2)
[2024-01-12 08:46] LABS: Alanine Aminotransferase < 9 U/L (7-40); Blood Urea Nitrogen 36 mg/dL (9-23); Glucose 137 mg/dL (74-106); Sodium 135 mmol/L (136-145)
[2024-01-12 08:51] LABS: Hemoglobin 6.8 g/dL (13.5-17.5)
[2024-01-12 09:01] LABS: % Iron Saturation 14.7 % (20-55)
[2024-01-12 12:20] LABS: Platelet Estimate Decreased
[2024-01-12] MEDS: TPN PER PHARMACY IV NR (20:00)
[2024-01-12] MEDS: EPOETIN ALFA-EPBX 10,000 UNIT/1ML VIAL SC ONE (22:00)
[2024-01-13] VITALS (8 sets, daily range): BP systolic 118–126; BP diastolic 50–55; PULSE 77–85; RESP 0–19; TEMP 98.4–98.9; O2SAT 91–100
[2024-01-13] MEDS: DOXYCYCLINE 100MG/250ML 250 ML IV SCH (02:22)
[2024-01-13 06:44] LABS: Basophils # (auto) 0 10 ^3/uL (0-0.2); Eosinophils # (auto) 0.3 10 ^3/uL (0-0.8)
[2024-01-13 06:47] LABS: Basophils % (auto) 0.4 % (0.0-2.0); Eosinophils % (auto) 4.1 % (0.0-7.0); Hematocrit 21.5 % (41.0-53.0); Hemoglobin 7.3 g/dL (13.5-17.5); Lymphocytes # (auto) 0.4 10 ^3/uL (0.4-5.4); Lymphocytes % (auto) 5.3 % (10.0-50.0); Mean Corpuscular Hemoglobin 28.2 pg (28.0-32.0); Mean Corpuscular Hgb Conc. 33.7 g/dL (32.0-36.0); Mean Corpuscular Volume 83.7 fL (80.0-100.0); Monocytes % (auto) 12.6 % (0.0-12.0); Neutrophils # (auto) 6.4 10 ^3/uL (1.6-8.6); Neutrophils % (auto) 77.6 % (37.0-80.0); Red Blood Cells 2.57 10^6/uL (4.5-5.90); Red Cell Distribution Width 16.8 % (11.8-14.3); White Blood Cell 8.3 10^3/uL (4.4-10.8)
[2024-01-13 06:51] LABS: Albumin 2.8 g/dL (3.2-4.8); Alkaline Phosphatase 57 U/L (46-116); Anion Gap 8 (5-15); Aspartate Aminotransferase < 8 U/L (13-40); BUN/Creatinine Ratio 6.2 (10.0-20.0); Blood Urea Nitrogen 23 mg/dL (9-23); Carbon Dioxide 33 mmol/L (20-30); Chloride 98 mmol/L (98-107); Glucose 101 mg/dL (74-106); Magnesium 1.7 mg/dL (1.6-2.6); Phosphorus 2.1 mg/dL (2.4-5.1); Potassium 3.7 mmol/L (3.5-5.1); Sodium 139 mmol/L (136-145)
[2024-01-13 06:52] LABS: Bilirubin, Total 0.6 mg/dL (0.2-1.0); Total Protein 6.6 g/dL (5.7-8.2)
[2024-01-13 07:21] LABS: Alanine Aminotransferase < 9 U/L (7-40)
[2024-01-13] MEDS: SODIUM PHOSP 20MEQ(15MMOL) IN NS 100 ML IV ONE (13:48)
[2024-01-13] MEDS: TPN PER PHARMACY IV NR (20:16)
[2024-01-14] VITALS (8 sets, daily range): BP systolic 120–140; BP diastolic 43–77; PULSE 76–83; RESP 14–20; TEMP 98.1–98.7; O2SAT 95–100
[2024-01-14] MEDS ORDERED: DOXYCYCLINE 100MG/250ML 250 ML IV SCH (02:15)
[2024-01-14] MEDS: DOXYCYCLINE 100MG/250ML 250 ML IV SCH (05:54)
[2024-01-14 06:56] LABS: Eosinophils # (auto) 0.4 10 ^3/uL (0-0.8); Hemoglobin 7.1 g/dL (13.5-17.5); Lymphocytes # (auto) 0.6 10 ^3/uL (0.4-5.4); Monocytes % (auto) 13.9 % (0.0-12.0); Neutrophils # (auto) 5.4 10 ^3/uL (1.6-8.6); White Blood Cell 7.4 10^3/uL (4.4-10.8)
[2024-01-14 06:57] LABS: Basophils # (auto) 0 10 ^3/uL (0-0.2); Basophils % (auto) 0.5 % (0.0-2.0); Eosinophils % (auto) 5.4 % (0.0-7.0); Lymphocytes % (auto) 7.8 % (10.0-50.0); Mean Corpuscular Hemoglobin 28.1 pg (28.0-32.0); Mean Corpuscular Hgb Conc. 33.8 g/dL (32.0-36.0); Mean Corpuscular Volume 83.3 fL (80.0-100.0); Neutrophils % (auto) 72.4 % (37.0-80.0); Red Blood Cells 2.52 10^6/uL (4.5-5.90); Red Cell Distribution Width 16.9 % (11.8-14.3)
[2024-01-14 07:46] LABS: Potassium 3.8 mmol/L (3.5-5.1)
[2024-01-14 07:48] LABS: Calcium 8.8 mg/dL (8.5-10.1)
[2024-01-14 07:53] LABS: Magnesium 1.9 mg/dL (1.6-2.6)
[2024-01-14 07:54] LABS: Albumin 2.9 g/dL (3.2-4.8)
[2024-01-14 07:55] LABS: Phosphorus 3.4 mg/dL (2.4-5.1)
[2024-01-14 08:09] LABS: BUN/Creatinine Ratio 6.3 (10.0-20.0)
[2024-01-14 13:11] LABS: Hemoglobin 7.5 g/dL (13.5-17.5)
[2024-01-14 13:13] LABS: Hematocrit 22.2 % (41.0-53.0)
[2024-01-14] MEDS: TPN PER PHARMACY IV NR (20:12)
[2024-01-15] VITALS (15 sets, daily range): BP systolic 115–144; BP diastolic 54–76; PULSE 68–100; RESP 16–22; TEMP 97.6–98.5; O2SAT 94–100
[2024-01-15] MEDS ORDERED: SODIUM CHL 0.9% 1000 ML BAG XX ONE (07:00)
[2024-01-15 07:06] LABS: Eosinophils # (auto) 0.4 10 ^3/uL (0-0.8); Eosinophils % (auto) 6.4 % (0.0-7.0); Lymphocytes # (auto) 0.6 10 ^3/uL (0.4-5.4); Neutrophils # (auto) 4.8 10 ^3/uL (1.6-8.6); Nucleated Red Blood Cells % 0.1 %
[2024-01-15 07:08] LABS: Basophils # (auto) 0 10 ^3/uL (0-0.2); Basophils % (auto) 0.6 % (0.0-2.0); Hematocrit 19.4 % (41.0-53.0); Lymphocytes % (auto) 8.4 % (10.0-50.0); Mean Corpuscular Hgb Conc. 33.7 g/dL (32.0-36.0); Monocytes % (auto) 14.4 % (0.0-12.0); Neutrophils % (auto) 70.2 % (37.0-80.0); Red Blood Cells 2.33 10^6/uL (4.5-5.90); Red Cell Distribution Width 17.4 % (11.8-14.3); White Blood Cell 6.8 10^3/uL (4.4-10.8)
[2024-01-15 07:41] LABS: Albumin 2.6 g/dL (3.2-4.8); Alkaline Phosphatase 54 U/L (46-116); Anion Gap 9 (5-15); Aspartate Aminotransferase < 8 U/L (13-40); Carbon Dioxide 31 mmol/L (20-30); Chloride 96 mmol/L (98-107); Glucose 114 mg/dL (74-106); Sodium 136 mmol/L (136-145)
[2024-01-15 07:42] LABS: Bilirubin, Total 0.5 mg/dL (0.2-1.0); Phosphorus 3.4 mg/dL (2.4-5.1); Total Protein 6.2 g/dL (5.7-8.2)
[2024-01-15 07:51] LABS: Blood Urea Nitrogen 45 mg/dL (9-23)
[2024-01-15 07:52] LABS: Alanine Aminotransferase < 9 U/L (7-40); Hemoglobin 6.5 g/dL (13.5-17.5)
[2024-01-15] MEDS: TPN PER PHARMACY IV NR (20:30)
[2024-01-15] MEDS: EPOETIN ALFA-EPBX 10,000 UNIT/1ML VIAL SC ONE (22:03)
[2024-01-16] VITALS (9 sets, daily range): BP systolic 115–145; BP diastolic 55–76; PULSE 76–83; RESP 16–22; TEMP 97.9–98.8; O2SAT 96–100
[2024-01-16 07:34] LABS: Albumin 2.7 g/dL (3.2-4.8); Alkaline Phosphatase 58 U/L (46-116); Anion Gap 4 (5-15); BUN/Creatinine Ratio 7.1 (10.0-20.0); Calcium 8.4 mg/dL (8.5-10.1); Carbon Dioxide 27 mmol/L (20-30); Chloride 94 mmol/L (98-107); Magnesium 2.9 mg/dL (1.6-2.6)
[2024-01-16 07:35] LABS: Bilirubin, Total 0.5 mg/dL (0.2-1.0); Total Protein 6.2 g/dL (5.7-8.2)
[2024-01-16 07:43] LABS: Alanine Aminotransferase < 9 U/L (7-40); Aspartate Aminotransferase 15 U/L (13-40); Blood Urea Nitrogen 30 mg/dL (9-23); Phosphorus 3.8 mg/dL (2.4-5.1); Sodium 125 mmol/L (136-145)
[2024-01-16 07:46] LABS: Glucose 1158 mg/dL (74-106); Potassium 6.4 mmol/L (3.5-5.1)
[2024-01-16 08:17] LABS: Basophils # (auto) 0.1 10 ^3/uL (0-0.2); Basophils % (auto) 0.9 % (0.0-2.0); Eosinophils # (auto) 0.3 10 ^3/uL (0-0.8); Eosinophils % (auto) 4.4 % (0.0-7.0); Hematocrit 28.2 % (41.0-53.0); Lymphocytes # (auto) 0.5 10 ^3/uL (0.4-5.4); Lymphocytes % (auto) 6.7 % (10.0-50.0); Mean Corpuscular Hemoglobin 30.3 pg (28.0-32.0); Mean Corpuscular Hgb Conc. 31.8 g/dL (32.0-36.0); Mean Corpuscular Volume 95.2 fL (80.0-100.0); Monocytes # (auto) 1.1 10 ^3/uL (0-1.3); Monocytes % (auto) 15.4 % (0.0-12.0); Neutrophils % (auto) 72.6 % (37.0-80.0); Nucleated Red Blood Cells % 0.3 %; Red Blood Cells 2.96 10^6/uL (4.5-5.90); Red Cell Distribution Width 18.5 % (11.8-14.3); White Blood Cell 6.8 10^3/uL (4.4-10.8)
[2024-01-16 15:51] LABS: Chloride 101 mmol/L (98-107); Potassium 4.4 mmol/L (3.5-5.1)
[2024-01-16 15:52] LABS: Anion Gap 5 (5-15); Calcium 8.9 mg/dL (8.5-10.1); Carbon Dioxide 27 mmol/L (20-30)
[2024-01-16 16:36] LABS: Blood Urea Nitrogen 45 mg/dL (9-23); Glucose 106 mg/dL (74-106); Sodium 133 mmol/L (136-145)
[2024-01-16] MEDS ORDERED: TPN PER PHARMACY IV NR (20:00)
[2024-01-16] MEDS: MEGESTROL ACET 400MG/10ML ORAL SUSP PO SCH (21:49)
[2024-01-17 01:00] VITALS: BP 127/67; PULSE 86; RESP 20; TEMP 98; O2SAT 100
[2024-01-17 05:00] VITALS: BP 125/45; PULSE 76; RESP 19; TEMP 98; O2SAT 100
[2024-01-17 06:26] LABS: Basophils # (auto) 0.1 10 ^3/uL (0-0.2); Basophils % (auto) 0.8 % (0.0-2.0); Eosinophils # (auto) 0.3 10 ^3/uL (0-0.8); Eosinophils % (auto) 3.9 % (0.0-7.0); Hematocrit 25.7 % (41.0-53.0); Hemoglobin 8.5 g/dL (13.5-17.5); Lymphocytes # (auto) 0.5 10 ^3/uL (0.4-5.4); Lymphocytes % (auto) 6.5 % (10.0-50.0); Mean Corpuscular Hemoglobin 27.8 pg (28.0-32.0); Mean Corpuscular Volume 84.4 fL (80.0-100.0); Monocytes # (auto) 1.3 10 ^3/uL (0-1.3); Monocytes % (auto) 15.8 % (0.0-12.0); Neutrophils # (auto) 6.1 10 ^3/uL (1.6-8.6); Nucleated Red Blood Cells % 0.1 %; Red Blood Cells 3.04 10^6/uL (4.5-5.90); Red Cell Distribution Width 17.1 % (11.8-14.3); White Blood Cell 8.4 10^3/uL (4.4-10.8)
[2024-01-17 06:42] LABS: Alkaline Phosphatase 69 U/L (46-116); Anion Gap 9 (5-15); BUN/Creatinine Ratio 8.9 (10.0-20.0); Blood Urea Nitrogen 45 mg/dL (9-23); Calcium 9.3 mg/dL (8.5-10.1); Carbon Dioxide 25 mmol/L (20-30); Chloride 100 mmol/L (98-107); Glucose 84 mg/dL (74-106); Potassium 4.5 mmol/L (3.5-5.1); Sodium 134 mmol/L (136-145)
[2024-01-17 06:43] LABS: Albumin 2.7 g/dL (3.2-4.8); Aspartate Aminotransferase 14 U/L (13-40); Bilirubin, Total 0.5 mg/dL (0.2-1.0)
[2024-01-17 06:44] LABS: Total Protein 6.5 g/dL (5.7-8.2)
[2024-01-17 06:53] LABS: Alanine Aminotransferase < 9 U/L (7-40)
[2024-01-17] MEDS ORDERED: SODIUM CHL 0.9% 1000 ML BAG XX ONE (07:00)
[2024-01-17 08:00] VITALS: PULSE 78; PULSE 80; RESP 18; O2SAT 96
[2024-01-17 09:00] VITALS: BP 125/70; PULSE 80; RESP 18; TEMP 98.1; O2SAT 99
[2024-01-17 12:47] VITALS: BP 117/56; PULSE 82; RESP 18
[2024-01-17 17:00] VITALS: BP 125/58; PULSE 79; RESP 19; TEMP 98.4; O2SAT 99
[2024-01-17] MEDS ORDERED: EPOETIN ALFA-EPBX 10,000 UNIT/1ML VIAL SC ONE (21:00)
== END 2024-01-17 17:51 | disposition home or self-care (01) | DRG 329 ==
LOC: EDBD 12:54 → ER 12:58 → TELE 18:05 → TELE-CENTR 01-06 17:55 → ICU CENTRL 01-09 15:27 → TELE-EAST 01-10 23:10
PROVIDERS: ADMIT Nurse Practitioner Family; ATTEND Nurse Practitioner Family
PROC: 5A1D70Z Performance of Urinary Filtration, Intermittent, Less than 6 Hours Per Day (ICD-10-PCS; 2024-01-05)
PROC: 05HA33Z Insertion of Infusion Device into Left Brachial Vein, Percutaneous Approach (ICD-10-PCS; 2024-01-05)
PROC: B54NZZA Ultrasonography of Left Upper Extremity Veins, Guidance (ICD-10-PCS; 2024-01-05)
PROC: 3E0336Z Introduction of Nutritional Substance into Peripheral Vein, Percutaneous Approach (ICD-10-PCS; 2024-01-05)
PROC: 30233N1 Transfusion of Nonautologous Red Blood Cells into Peripheral Vein, Percutaneous Approach (ICD-10-PCS; principal; 2024-01-08)
PROC: 5A1D70Z Performance of Urinary Filtration, Intermittent, Less than 6 Hours Per Day (ICD-10-PCS; 2024-01-08)
PROC: 0DBH0ZZ Excision of Cecum, Open Approach (ICD-10-PCS; 2024-01-09)
PROC: 0DN80ZZ Release Small Intestine, Open Approach (ICD-10-PCS; 2024-01-09)
PROC: 0DNJ0ZZ Release Appendix, Open Approach (ICD-10-PCS; 2024-01-09)
PROC: 0DNH0ZZ Release Cecum, Open Approach (ICD-10-PCS; 2024-01-09)
PROC: 0DNK0ZZ Release Ascending Colon, Open Approach (ICD-10-PCS; 2024-01-09)
PROC: 0DJD4ZZ Inspection of Lower Intestinal Tract, Percutaneous Endoscopic Approach (ICD-10-PCS; 2024-01-09)
PROC: 0DBK0ZZ Excision of Ascending Colon, Open Approach (ICD-10-PCS; 2024-01-09)
PROC: 0DNW0ZZ Release Peritoneum, Open Approach (ICD-10-PCS; 2024-01-09)
PROC: 5A1D70Z Performance of Urinary Filtration, Intermittent, Less than 6 Hours Per Day (ICD-10-PCS; 2024-01-10)
PROC: 02HV33Z Insertion of Infusion Device into Superior Vena Cava, Percutaneous Approach (ICD-10-PCS; 2024-01-10)
PROC: B548ZZA Ultrasonography of Superior Vena Cava, Guidance (ICD-10-PCS; 2024-01-10)
PROC: 5A1D70Z Performance of Urinary Filtration, Intermittent, Less than 6 Hours Per Day (ICD-10-PCS; 2024-01-12)
PROC: 5A1D70Z Performance of Urinary Filtration, Intermittent, Less than 6 Hours Per Day (ICD-10-PCS; 2024-01-15)
PROC: 5A1D70Z Performance of Urinary Filtration, Intermittent, Less than 6 Hours Per Day (ICD-10-PCS; 2024-01-17)
DX: D12.0 Benign neoplasm of cecum (principal); E43 Unspecified severe protein-calorie malnutrition; J69.0 Pneumonitis due to inhalation of food and vomit; N18.6 End stage renal disease; J96.01 Acute respiratory failure with hypoxia; J15.69 Pneumonia due to other Gram-negative bacteria; J15.9 Unspecified bacterial pneumonia; E87.20 Acidosis, unspecified; I42.8 Other cardiomyopathies; I13.2 Hypertensive heart and chronic kidney disease with heart failure and with stage 5 chronic kidney disease, or end stage renal disease; K22.10 Ulcer of esophagus without bleeding; K63.5 Polyp of colon; E11.22 Type 2 diabetes mellitus with diabetic chronic kidney disease; E87.5 Hyperkalemia; K44.9 Diaphragmatic hernia without obstruction or gangrene; E78.5 Hyperlipidemia, unspecified; K29.90 Gastroduodenitis, unspecified, without bleeding; D63.8 Anemia in other chronic diseases classified elsewhere; H54.3 Unqualified visual loss, both eyes; I08.2 Rheumatic disorders of both aortic and tricuspid valves; I25.10 Atherosclerotic heart disease of native coronary artery without angina pectoris; I50.9 Heart failure, unspecified; F41.9 Anxiety disorder, unspecified; K21.9 Gastro-esophageal reflux disease without esophagitis; N28.1 Cyst of kidney, acquired; E21.1 Secondary hyperparathyroidism, not elsewhere classified; Z53.31 Laparoscopic surgical procedure converted to open procedure; Z89.511 Acquired absence of right leg below knee; Z89.512 Acquired absence of left leg below knee; Z82.49 Family history of ischemic heart disease and other diseases of the circulatory system; Z83.3 Family history of diabetes mellitus; Z79.899 Other long term (current) drug therapy; Z99.2 Dependence on renal dialysis; Z90.49 Acquired absence of other specified parts of digestive tract; Z68.29 Body mass index [BMI] 29.0-29.9, adult
CPT/HCPCS: 36415; 36569; 36600; 71045; 74018; 74176; 80048; 80053; 80069; 82378; 82728; 82805; 82962; 83540; 83550; 83735; 84100; 84132; 84478; 84484; 85007; 85014; 85018; 85025; 85027; 85610; 85730; 86803; 86850; 86900; 86901; 86902; 86922; 87070; 87081; 87205; 87340; 90935; 93005; 93306; 94002; 94003; 94640; 96365; 96375; 97163; C9113; G0378; J1100; J1642; J1815; J2001; J2250; J2543; J3490; J7131

== ENCOUNTER 2024-01-19 04:05 | Inpatient (IN) | payer MEDICARE, MEDICAID ==
[~2024-01-19] VITALS: Ht 182.9 cm; Wt 97.7 kg
[2024-01-19 04:40] VITALS: PULSE 77; RESP 17; O2SAT 100
[2024-01-19 05:17] LABS: Basophils # (auto) 0.1 10 ^3/uL (0-0.2); Basophils % (auto) 0.8 % (0.0-2.0); Eosinophils # (auto) 0.3 10 ^3/uL (0-0.8); Eosinophils % (auto) 3.6 % (0.0-7.0); Hematocrit 27.3 % (41.0-53.0); Lymphocytes # (auto) 0.5 10 ^3/uL (0.4-5.4); Lymphocytes % (auto) 6.5 % (10.0-50.0); Mean Corpuscular Hemoglobin 27.7 pg (28.0-32.0); Mean Corpuscular Hgb Conc. 32.9 g/dL (32.0-36.0); Mean Corpuscular Volume 84.3 fL (80.0-100.0); Monocytes # (auto) 1.2 10 ^3/uL (0-1.3); Monocytes % (auto) 14.3 % (0.0-12.0); Neutrophils % (auto) 74.8 % (37.0-80.0); Red Blood Cells 3.24 10^6/uL (4.5-5.90); Red Cell Distribution Width 16.9 % (11.8-14.3); White Blood Cell 8.1 10^3/uL (4.4-10.8)
[2024-01-19 05:34] LABS: Alanine Aminotransferase 15 U/L (7-40); Alkaline Phosphatase 117 U/L (46-116); Calcium 9.4 mg/dL (8.7-10.4); Carbon Dioxide 28 mmol/L (20-30); Chloride 103 mmol/L (98-107); Glucose 94 mg/dL (74-106)
[2024-01-19 05:35] LABS: Albumin 2.8 g/dL (3.2-4.8); Anion Gap 7 (5-15); Aspartate Aminotransferase 25 U/L (13-40); BUN/Creatinine Ratio 7.4 (10.0-20.0); Bilirubin, Total 0.5 mg/dL (0.2-1.0); Blood Urea Nitrogen 39 mg/dL (9-23); Lipase 24 U/L (12-53); Potassium 3.9 mmol/L (3.5-5.1); Sodium 138 mmol/L (136-145); Total Protein 6.9 g/dL (5.7-8.2)
[2024-01-19 07:30] VITALS: PULSE 80; RESP 14; O2SAT 100
[2024-01-19] MEDS ORDERED: MORPHINE SULFATE INJ 2 MG/ml SYRG IV PRN ×2 (09:15)
[2024-01-19] MEDS ORDERED: HYDROcodone-ACET 5/325MG TAB PO PRN (09:15)
[2024-01-19] MEDS ORDERED: NITROGLYCERIN 0.4 MG SL TAB SL PRN (09:15)
[2024-01-19] MEDS: PANTOPRAZOLE 40 MG/10 ML VIAL INJ IV SCH (10:00)
[2024-01-19] MEDS ORDERED: CARVEDILOL 3.125 MG TAB PO SCH (10:00)
[2024-01-19] MEDS: DOCUSATE SOD 100 MG CAP PO SCH (10:00)
[2024-01-19] MEDS: HEPARIN SODIUM (PORCINE) 5000 UNITS/ML 1ML VIAL SC SCH (10:00)
[2024-01-19] MEDS ORDERED: DOCUSATE SOD 100 MG CAP PO SCH (10:00)
[2024-01-19] MEDS: FERROUS SULFATE 325mg EC TAB PO SCH (11:24)
[2024-01-19] MEDS: GABAPENTIN 100 MG CAP PO SCH (11:26)
[2024-01-19] MEDS: CALCIUM ACETATE 667 MG CAP PO SCH (13:00)
[2024-01-19 15:03] VITALS: BP 128/72; PULSE 88; RESP 20; TEMP 98.2; O2SAT 96
[2024-01-19 16:54] VITALS: BP 126/51; PULSE 81; RESP 17; TEMP 98.1; O2SAT 100
[2024-01-19] MEDS: LATANOPROST 0.005 % OPTH(EYE) SOL 2.5ML EACHEYE SCH (17:23)
[2024-01-19 20:00] VITALS: PULSE 77; PULSE 78; RESP 18
[2024-01-19] MEDS: ACETAMINOPHEN 325 MG TAB PO PRN (20:21)
[2024-01-19 21:00] VITALS: BP 106/52; PULSE 77; RESP 18; TEMP 98.2; O2SAT 100
[2024-01-20 01:00] VITALS: BP 109/58; PULSE 77; RESP 16; TEMP 97.7; O2SAT 97
[2024-01-20 06:01] LABS: Basophils # (auto) 0.1 10 ^3/uL (0-0.2); Basophils % (auto) 0.8 % (0.0-2.0); Eosinophils # (auto) 0.3 10 ^3/uL (0-0.8); Eosinophils % (auto) 4.1 % (0.0-7.0); Hematocrit 28.2 % (41.0-53.0); Hemoglobin 9.1 g/dL (13.5-17.5); Lymphocytes # (auto) 0.6 10 ^3/uL (0.4-5.4); Mean Corpuscular Hgb Conc. 32.4 g/dL (32.0-36.0); Mean Corpuscular Volume 86.7 fL (80.0-100.0); Monocytes % (auto) 12.3 % (0.0-12.0); Neutrophils # (auto) 6.5 10 ^3/uL (1.6-8.6); Neutrophils % (auto) 75.8 % (37.0-80.0); Red Blood Cells 3.26 10^6/uL (4.5-5.90); Red Cell Distribution Width 17.2 % (11.8-14.3); White Blood Cell 8.5 10^3/uL (4.4-10.8)
[2024-01-20 06:20] LABS: Alanine Aminotransferase 10 U/L (7-40); Albumin 2.8 g/dL (3.2-4.8); Alkaline Phosphatase 97 U/L (46-116); Anion Gap 8 (5-15); Aspartate Aminotransferase 16 U/L (13-40); BUN/Creatinine Ratio 6.6 (10.0-20.0); Bilirubin, Total 0.5 mg/dL (0.2-1.0); Blood Urea Nitrogen 41 mg/dL (9-23); Calcium 9.3 mg/dL (8.5-10.1); Carbon Dioxide 27 mmol/L (20-30); Chloride 103 mmol/L (98-107); Glucose 77 mg/dL (74-106); Potassium 4.2 mmol/L (3.5-5.1); Sodium 138 mmol/L (136-145); Total Protein 6.9 g/dL (5.7-8.2)
[2024-01-20] MEDS: LIDOCAINE 2% TOPICAL JELLY 5 ML URJT TOP ONE (06:59)
[2024-01-20] MEDS: SODIUM CHL 0.9% 1000 ML BAG XX ONE (07:00)
[2024-01-20 08:00] VITALS: BP 118/69; PULSE 79; PULSE 81; RESP 18; TEMP 97.2; O2SAT 94
[2024-01-20 12:00] VITALS: BP 126/57; PULSE 71; RESP 17; TEMP 98.1; O2SAT 94
[2024-01-20 20:00] VITALS: BP 128/62; PULSE 80; PULSE 85; RESP 16; TEMP 98.2; O2SAT 100
[2024-01-20] MEDS: EPOETIN ALFA-EPBX 10,000 UNIT/1ML VIAL SC ONE (22:11)
[2024-01-21] VITALS (8 sets, daily range): BP systolic 109–118; BP diastolic 39–53; PULSE 72–78; RESP 14–18; TEMP 97.5–98.6; O2SAT 100
[2024-01-21 14:47] LABS: Basophils # (auto) 0.1 10 ^3/uL (0-0.2); Basophils % (auto) 0.9 % (0.0-2.0); Eosinophils # (auto) 0.4 10 ^3/uL (0-0.8); Eosinophils % (auto) 4.6 % (0.0-7.0); Hematocrit 28.5 % (41.0-53.0); Hemoglobin 9.3 g/dL (13.5-17.5); Lymphocytes # (auto) 0.5 10 ^3/uL (0.4-5.4); Lymphocytes % (auto) 6.4 % (10.0-50.0); Mean Corpuscular Hemoglobin 27.7 pg (28.0-32.0); Mean Corpuscular Hgb Conc. 32.6 g/dL (32.0-36.0); Mean Corpuscular Volume 84.8 fL (80.0-100.0); Monocytes # (auto) 0.9 10 ^3/uL (0-1.3); Monocytes % (auto) 10.3 % (0.0-12.0); Neutrophils # (auto) 6.6 10 ^3/uL (1.6-8.6); Neutrophils % (auto) 77.8 % (37.0-80.0); Nucleated Red Blood Cells % 0.2 %; Red Blood Cells 3.35 10^6/uL (4.5-5.90); Red Cell Distribution Width 17.1 % (11.8-14.3); White Blood Cell 8.5 10^3/uL (4.4-10.8)
[2024-01-21 15:03] LABS: Chloride 103 mmol/L (98-107); Potassium 3.9 mmol/L (3.5-5.1); Sodium 137 mmol/L (136-145)
[2024-01-21 15:04] LABS: Anion Gap 5 (5-15); Calcium 9.2 mg/dL (8.5-10.1); Carbon Dioxide 29 mmol/L (20-30)
[2024-01-21 15:09] LABS: BUN/Creatinine Ratio 5.8 (10.0-20.0); Glucose 95 mg/dL (74-106)
[2024-01-21 15:17] LABS: Blood Urea Nitrogen 31 mg/dL (9-23)
[2024-01-22] MEDS: SODIUM CHL 0.9% 1000 ML BAG XX ONE (07:00)
[2024-01-22 08:00] VITALS: BP 123/53; PULSE 81; RESP 17; TEMP 97.6; O2SAT 100
[2024-01-22 08:10] VITALS: PULSE 78
[2024-01-22] MEDS: LIDOCAINE 1% HCL (LOCAL ANESTH.) INJ 20ML MDV ID PRN (11:14)
[2024-01-22 12:00] VITALS: BP 123/62; PULSE 67; RESP 15
[2024-01-22] MEDS ORDERED: EPOETIN ALFA-EPBX 10,000 UNIT/1ML VIAL SC ONE (21:00)
== END 2024-01-22 18:00 | disposition home health service (06) | DRG 380 ==
LOC: ER 04:05 → EDBD 04:05 → TELE 09:06 → CENTRAL 14:59 → TELE-CENTR 01-21 07:34
PROVIDERS: ADMIT Nurse Practitioner Family; ATTEND Nurse Practitioner Family
PROC: 5A1D70Z Performance of Urinary Filtration, Intermittent, Less than 6 Hours Per Day (ICD-10-PCS; principal; 2024-01-20)
PROC: 5A1D70Z Performance of Urinary Filtration, Intermittent, Less than 6 Hours Per Day (ICD-10-PCS; 2024-01-22)
DX: K22.10 Ulcer of esophagus without bleeding (principal); N18.6 End stage renal disease; J90 Pleural effusion, not elsewhere classified; I12.0 Hypertensive chronic kidney disease with stage 5 chronic kidney disease or end stage renal disease; K29.90 Gastroduodenitis, unspecified, without bleeding; D50.0 Iron deficiency anemia secondary to blood loss (chronic); E78.5 Hyperlipidemia, unspecified; H54.62 Unqualified visual loss, left eye, normal vision right eye; I73.9 Peripheral vascular disease, unspecified; M89.8X9 Other specified disorders of bone, unspecified site; E87.5 Hyperkalemia; F17.210 Nicotine dependence, cigarettes, uncomplicated; I25.10 Atherosclerotic heart disease of native coronary artery without angina pectoris; E66.9 Obesity, unspecified; Z99.2 Dependence on renal dialysis; Z79.899 Other long term (current) drug therapy; Z89.511 Acquired absence of right leg below knee; Z90.49 Acquired absence of other specified parts of digestive tract; Z89.512 Acquired absence of left leg below knee; Z82.49 Family history of ischemic heart disease and other diseases of the circulatory system; Z83.3 Family history of diabetes mellitus; Z80.8 Family history of malignant neoplasm of other organs or systems; Z87.19 Personal history of other diseases of the digestive system; Z68.29 Body mass index [BMI] 29.0-29.9, adult
CPT/HCPCS: 36415; 71045; 74176; 80048; 80053; 83690; 85025; 87081; 90935; 93005; C9113; G0378

== ENCOUNTER 2024-01-28 16:13 | Inpatient (IN) | payer MEDICARE, MEDICAID ==
[~2024-01-28] VITALS: Ht 152.4 cm; Wt 82.7 kg
[2024-01-28 17:11] LABS: Eosinophils # (auto) 0.1 10 ^3/uL (0-0.8); Eosinophils % (auto) 0.6 % (0.0-7.0); Monocytes # (auto) 1.4 10 ^3/uL (0-1.3)
[2024-01-28 17:13] LABS: Basophils # (auto) 0 10 ^3/uL (0-0.2); Basophils % (auto) 0.1 % (0.0-2.0); Hematocrit 27.7 % (41.0-53.0); Hemoglobin 8.9 g/dL (13.5-17.5); Lymphocytes # (auto) 0.6 10 ^3/uL (0.4-5.4); Lymphocytes % (auto) 3.3 % (10.0-50.0); Mean Corpuscular Hemoglobin 26.4 pg (28.0-32.0); Mean Corpuscular Volume 82.5 fL (80.0-100.0); Monocytes % (auto) 8.2 % (0.0-12.0); Neutrophils # (auto) 14.5 10 ^3/uL (1.6-8.6); Neutrophils % (auto) 87.8 % (37.0-80.0); Nucleated Red Blood Cells % 0.1 %; Red Blood Cells 3.36 10^6/uL (4.5-5.90); Red Cell Distribution Width 18.3 % (11.8-14.3); White Blood Cell 16.6 10^3/uL (4.4-10.8)
[2024-01-28 17:58] LABS: Alanine Aminotransferase 16 U/L (7-40); Albumin 2.5 g/dL (3.2-4.8); Alkaline Phosphatase 130 U/L (46-116); Anion Gap 11 (5-15); Aspartate Aminotransferase 23 U/L (13-40); BUN/Creatinine Ratio 7.4 (10.0-20.0); Bilirubin, Total 0.9 mg/dL (0.2-1.0); Blood Urea Nitrogen 72 mg/dL (9-23); Calcium 9.4 mg/dL (8.7-10.4); Carbon Dioxide 23 mmol/L (20-30); Chloride 105 mmol/L (98-107); Glucose 69 mg/dL (74-106); Sodium 139 mmol/L (136-145); Total Protein 7.1 g/dL (5.7-8.2)
[2024-01-28 18:03] LABS: Potassium 6.3 mmol/L (3.5-5.1)
[2024-01-28] MEDS: SODIUM ZIRCONIUM CYCL 10 GM PAK PO ONE (19:52)
[2024-01-28] MEDS: SODIUM BICARB 8.4% 50Meq/50ml SYR Vial IV ONE (19:52)
[2024-01-28] MEDS: DEXTROSE (50%) 50ML SYRG IV ONE (19:52)
[2024-01-28] MEDS: InsuLIN REG 1unit/0.01ml Soln (100units/ml) IV ONE (19:54)
[2024-01-28] MEDS: CALCIUM GLUC 1,000mg/50ml-NS 50 ML IV ONE (19:54)
[2024-01-28 20:00] VITALS: PULSE 120; RESP 17; O2SAT 91
[2024-01-28 20:27] LABS: INR 1.35 (0.9-1.15)
[2024-01-28] MEDS ORDERED: NITROGLYCERIN 0.4 MG SL TAB SL PRN (21:00)
[2024-01-28] MEDS ORDERED: MORPHINE SULFATE INJ 2 MG/ml SYRG IV PRN (21:00)
[2024-01-28] MEDS ORDERED: ONDANSETRON HCL 4 MG/2 ML VIAL IV PRN (21:00)
[2024-01-28] MEDS ORDERED: ACETAMINOPHEN 325 MG TAB PO PRN (21:00)
[2024-01-29] VITALS (10 sets, daily range): BP systolic 101–116; BP diastolic 42–56; PULSE 99–136; RESP 18–24; TEMP 98–99.4; O2SAT 92–93
[2024-01-29 07:15] LABS: Basophils # (auto) 0.1 10 ^3/uL (0-0.2)
[2024-01-29 07:17] LABS: Basophils % (auto) 0.4 % (0.0-2.0); Eosinophils # (auto) 0.1 10 ^3/uL (0-0.8); Eosinophils % (auto) 0.8 % (0.0-7.0); Hematocrit 28.5 % (41.0-53.0); Hemoglobin 9.3 g/dL (13.5-17.5); Lymphocytes # (auto) 0.6 10 ^3/uL (0.4-5.4); Lymphocytes % (auto) 3.8 % (10.0-50.0); Mean Corpuscular Hemoglobin 26.7 pg (28.0-32.0); Mean Corpuscular Hgb Conc. 32.6 g/dL (32.0-36.0); Monocytes # (auto) 1.5 10 ^3/uL (0-1.3); Monocytes % (auto) 9.4 % (0.0-12.0); Neutrophils # (auto) 13.3 10 ^3/uL (1.6-8.6); Neutrophils % (auto) 85.6 % (37.0-80.0); Red Blood Cells 3.48 10^6/uL (4.5-5.90); Red Cell Distribution Width 18.7 % (11.8-14.3); White Blood Cell 15.6 10^3/uL (4.4-10.8)
[2024-01-29 07:30] LABS: Alanine Aminotransferase 12 U/L (7-40); Alkaline Phosphatase 133 U/L (46-116); Anion Gap 10 (5-15); Aspartate Aminotransferase 26 U/L (13-40); BUN/Creatinine Ratio 7.1 (10.0-20.0); Blood Urea Nitrogen 72 mg/dL (9-23); Calcium 9.8 mg/dL (8.5-10.1); Carbon Dioxide 26 mmol/L (20-30); Chloride 103 mmol/L (98-107); Glucose 82 mg/dL (74-106); Sodium 139 mmol/L (136-145)
[2024-01-29 07:31] LABS: Bilirubin, Total 1.1 mg/dL (0.2-1.0); Total Protein 7.9 g/dL (5.7-8.2)
[2024-01-29 07:40] LABS: Potassium 5.7 mmol/L (3.5-5.1)
[2024-01-29] MEDS: ALBUTEROL SULF 2.5 MG/0.5ML(0.5%) NEB SOLN NEB ONE (14:15)
[2024-01-29] MEDS: SODIUM ZIRCONIUM CYCL 10 GM PAK PO ONE (15:27)
[2024-01-30] VITALS (8 sets, daily range): BP systolic 109–123; BP diastolic 54–63; PULSE 65–108; RESP 18–22; TEMP 98.6–99.3; O2SAT 90–99
[2024-01-30] MEDS ORDERED: SODIUM CHL 0.9% 1000 ML BAG XX ONE (07:00)
[2024-01-30] MEDS: EPOETIN ALFA-EPBX 10,000 UNIT/1ML VIAL SC ONE (21:18)
[2024-01-31 01:00] VITALS: BP 98/46; PULSE 99; RESP 17; TEMP 98.5; O2SAT 95
[2024-01-31 08:00] VITALS: BP 103/50; PULSE 102; PULSE 69; RESP 18; TEMP 98; O2SAT 91; O2SAT 97
[2024-01-31 10:00] VITALS: O2SAT 99
[2024-01-31] MEDS: HYDROcodone-ACET 5/325MG TAB PO PRN (10:40)
[2024-01-31 12:00] VITALS: BP 135/78; PULSE 104; RESP 18; TEMP 97.9; O2SAT 97
[2024-01-31 17:00] VITALS: BP 94/50; PULSE 98; RESP 18; TEMP 98.2; O2SAT 94
[2024-01-31 19:06] VITALS: BP 126/63; PULSE 96; RESP 20; TEMP 98.3; O2SAT 99
== END 2024-01-31 20:00 | disposition hospice, inpatient (51) | DRG 640 ==
LOC: ER 16:13 → TELE 21:02 → TELE-WESTW 01-29 02:30
PROVIDERS: ADMIT Nurse Practitioner; ATTEND Nurse Practitioner
PROC: 5A1D70Z Performance of Urinary Filtration, Intermittent, Less than 6 Hours Per Day (ICD-10-PCS; principal; 2024-01-30)
DX: E87.5 Hyperkalemia (principal); N18.6 End stage renal disease; I12.0 Hypertensive chronic kidney disease with stage 5 chronic kidney disease or end stage renal disease; J44.9 Chronic obstructive pulmonary disease, unspecified; E11.51 Type 2 diabetes mellitus with diabetic peripheral angiopathy without gangrene; F17.210 Nicotine dependence, cigarettes, uncomplicated; D72.829 Elevated white blood cell count, unspecified; D63.8 Anemia in other chronic diseases classified elsewhere; E11.22 Type 2 diabetes mellitus with diabetic chronic kidney disease; Z89.511 Acquired absence of right leg below knee; Z89.512 Acquired absence of left leg below knee; Z79.899 Other long term (current) drug therapy; Z83.3 Family history of diabetes mellitus; Z82.49 Family history of ischemic heart disease and other diseases of the circulatory system; Z80.8 Family history of malignant neoplasm of other organs or systems; Z91.158 Patient's noncompliance with renal dialysis for other reason; Z90.49 Acquired absence of other specified parts of digestive tract; Z99.2 Dependence on renal dialysis
CPT/HCPCS: 36415; 71045; 74018; 80053; 82962; 84132; 84484; 85025; 85610; 87081; 90935; 94640; 96365; 96375; 99291; G0378; J1815